=== PATIENT | male | born 1935 | race Caucasian/White ===

== ENCOUNTER 2019-11-28 12:41 | Outpatient (REF) | payer MEDICARE, SELFPAY ==
--- NOTE | 2019-11-28 13:06 | CT_ITS ---
EXAMINATION: CHEST CT WITHOUT CONTRAST CLINICAL INFORMATION: Abnormal weight loss COMPARISON: Previous chest x-ray and chest CT June 2019 TECHNIQUE: Axial images through the chest without contrast. Sagittal and coronal reconstructions on the technologist workstation were performed. Patient dose 1 7 mg/cm. FINDINGS: The heart is enlarged. There is severe coronary artery calcification. There is no pericardial effusion. There are small mediastinal lymph nodes. No enlarged lymph nodes are seen. The visualized thyroid gland is unremarkable. The esophagus is unremarkable. The previously identified diffuse interstitial prominence and groundglass opacities seen on June 2019 exam have almost completely resolved. There are minimal residual peripheral increased interstitial markings seen in the dependent right lower lobe. The lungs are otherwise clear. No evidence of emphysema or bronchiectasis is seen. No endobronchial or endotracheal lesion is seen. There is no pleural effusion or pleural thickening. The previously identified moderate bilateral pleural effusions on June 2019 exam resolved. No chest wall mass or enlarged axillary lymph nodes are seen. There is evidence of atherosclerotic disease and calcification at the origins of the celiac axis and SMA. Images through the upper abdomen are otherwise unremarkable. There are degenerative changes of the spine. IMPRESSION: Enlarged heart and severe coronary artery calcification. Improved chest CT findings from June 2019. Mild residual increased interstitial markings seen in the peripheral right lower lobe. Resolved bilateral pleural effusions.
== END 2019-11-28 12:42 | disposition home or self-care (01) ==
LOC: HO.CT 12:41
PROVIDERS: PCP Family Medicine; Visit Provider Family Medicine
DX: R93.89 Abnormal findings on diagnostic imaging of other specified body structures (principal); R63.4 Abnormal weight loss
CPT/HCPCS: 71250

== ENCOUNTER → 2019-12-04 10:17 | Outpatient (BNVA) | payer MEDICARE, SELFPAY | PROVIDERS: Visit Provider Physician Assistant | DX: D64.9 Anemia, unspecified (principal); R10.13 Epigastric pain; R63.4 Abnormal weight loss | CPT/HCPCS: 99214 ==

== ENCOUNTER 2020-01-19 11:49 | Emergency (ER) | payer MEDICARE, SELFPAY ==
[2020-01-19] VITALS (7 sets, daily range): BP systolic 170–216; BP diastolic 62–84; PULSE 42–65; RESP 10–18; TEMP 36.6; O2SAT 95–97; BMI 31.4
--- NOTE | 2020-01-19 | ECG_ITS ---
Test Reason : ABDPAIN Blood Pressure : / mmHG Vent. Rate : 044 BPM Atrial Rate : 375 BPM P-R Int : 000 ms QRS Dur : 102 ms QT Int : 460 ms P-R-T Axes : 000 -52 -34 degrees QTc Int : 393 ms Atrial fibrillation with slow ventricular response Left anterior fascicular block Inferior infarct , age undetermined Nonspecific T wave abnormality Inferior leads Abnormal ECG When compared with ECG of [id number] Heart rate has decreased T wave inversion no longer evident in Lateral leads Referred By: Generic ED Physician Electronically Signed By:KENROY DURÁN MD
--- NOTE | 2020-01-19 12:01 | PC.NURSE ---
Son Antolin phone number [phone], first contact Anthony Begum phone number [phone], second contact
--- NOTE | 2020-01-19 12:20 | XR_ITS ---
EXAMINATION: XR CHEST CLINICAL INFORMATION: Epigastric pain. Weight loss. COMPARISON: Previous chest x-ray most recent June [address] most recent November 2019 TECHNIQUE: 2 views of the chest were obtained. FINDINGS: The cardiac silhouette is enlarged but stable. Hilar and mediastinal contours are unremarkable. The lungs are clear. There is no pleural effusion or pneumothorax. There are degenerative changes of the spine. XR/XR chest 2V IMPRESSION: Stable enlargement of the cardiac silhouette. No evidence for acute disease in the chest.
--- NOTE | 2020-01-19 12:26 | PC.NURSE ---
pt triaged c/o mid abdominal pain, described as burning sensation, worsened when reclined. pt toya on monitor in low 40s, afib, pulses strong and regular. skin colour pwd, resp even nonlaboured. pa to bedside. arrived with 18G in bilat ac's. labs drawn. Elyssa daughter [phone]
--- NOTE | 2020-01-19 12:35 | ED.ABDPAIN ---
HPI - Abdominal Pain General Chief Complaint: Abdominal Pain Stated Complaint: EPIGASTRIC PAIN Time Seen by Provider: 01/19/20 12:08 Source: patient Mode of arrival: ambulatory Limitations: language barrier ([place]ander-speaking) History of Present Illness HPI narrative: 84yoM c PMHx of NSTEMI had an ECHO on June/2019 with an EF 35-40% with RWMA in the LAD territory with trivial loculated pericardial effusions over the RV and RA, cardiac catheterization at [facility] on June/2019 multi-vessel disease of the LAD, LCx and PDA and CABG recommended although pt refused , Atrial fibrillation on Blood thinners, DM, CKD baseline Cr 1.5-1.7, Renal artery stenosis, HTN, HLD, Tubular adenoma, Anemia, Restrictive lung disease, Esophageal dysmotility, BPH and MELQUIADES presenting to the ED c c/o epigastric abd pain since june 35lb weight loss. Denies N/V/D, dizziness, Chest pain, SOB, back pain, melena or bloody stools, dysuria, hematuria or any other symptoms complaints or concerns at this time. Related Data Home Medications Medication Instructions Recorded Confirmed albuterol sulfate 90 mcg/actuation 0 mcg INHALATION 12/04/19 12/04/19 aerosol inhaler alcohol swabs 0 pad TOPICAL 12/04/19 12/04/19 amlodipine 10 mg tablet 10 mg PO DAILY 12/04/19 12/04/19 apixaban 2.5 mg tablet 2.5 mg PO BID 12/04/19 12/04/19 aspirin 81 mg tablet,delayed 81 mg PO DAILY 12/04/19 12/04/19 release atorvastatin 40 mg tablet mg PO 12/04/19 12/04/19 atorvastatin 80 mg tablet 80 mg PO DAILY 12/04/19 12/04/19 blood sugar diagnostic #10 ea 12/04/19 12/04/19 cholecalciferol (vitamin D3) 50 50 mcg PO DAILY 12/04/19 12/04/19 mcg (2,000 unit) capsule clopidogrel 75 mg tablet 75 mg PO DAILY 12/04/19 12/04/19 dextrose 40 % oral gel g PO 12/04/19 12/04/19 fluticasone 250 mcg-salmeterol 50 1 ea PO Q12H 12/04/19 12/04/19 mcg/dose blistr powdr for inhalation glucose 4 gram chewable tablet 800f16 g PO 12/04/19 12/04/19 hydrochlorothiazide 12.5 mg tablet 12.5 mg PO DAILY 12/04/19 12/04/19 insulin aspart U-100 100 unit/mL unit SUBCUT 12/04/19 12/04/19 (3 mL) subcutaneous pen insulin glargine 100 unit/mL (3 50 unit SUBCUT BEDTIME 12/04/19 12/04/19 mL) subcutaneous pen isosorbide mononitrate 120 mg 120 mg PO DAILY 12/04/19 12/04/19 tablet,extended release 24 hr isosorbide mononitrate 30 mg 30 mg PO QAM 12/04/19 12/04/19 tablet,extended release 24 hr lancets 33 gauge #100 ea 12/04/19 12/04/19 lisinopril 10 mg tablet 10 mg PO DAILY 12/04/19 12/04/19 lisinopril 40 mg tablet 40 mg PO DAILY 12/04/19 12/04/19 nifedipine 30 mg tablet,extended 30 mg PO DAILY 12/04/19 12/04/19 release 24 hr omeprazole 20 mg capsule,delayed 0 mg PO 12/04/19 12/04/19 release pen needle, diabetic 32 gauge x #50 ea 12/04/19 12/04/1932 umeclidinium 62.5 mcg/actuation 1 inh INHALATION DAILY 12/04/19 12/04/19 blister powder for inhalation Previous Rx's Medication Instructions Recorded carvedilol 3.125 mg tablet 3.125 mg PO BID 90 Days #180 tab 01/09/20 torsemide 20 mg tablet 40 mg PO DAILY 90 Days #180 tab 01/09/20 levofloxacin 750 mg PO DAILY 7 Days #7 tab 01/19/20 metronidazole [Flagyl] 500 mg PO BID 7 Days #14 tab 01/19/20 Allergies Allergy/AdvReac Type Severity Reaction Status Date / Time No Known Allergies Allergy Verified 01/19/20 12:14 Review of Systems Review of Systems Constitutional : + 35lbs Weight loss, No Fever, No Chills, No Night Sweats, No Fatigue, NoMalaise ENT/Mouth: No ear pain, No sore throat, No Difficulty swallowing Cardiovascular : No Chest Pain, No SOB, No Dyspnea on Exertion, No Orthopnea, NoEdema, No Palpitations Respiratory : No Cough, No Sputum, No Wheezing, No Dyspnea Gastrointestinal : No Nausea, No Vomiting, No Diarrhea, + abdominal Pain, No Hematochezia, No Melena Genitourinary : No irregular bleeding, No Dysuria, No Urinary Frequency, No Hematuria,No Urinary Incontinence, No Urgency, No Flank Pain Musculoskeletal : No joint pain, No Myalgias, No Joint Swelling Skin : No Skin Lesions, No rash Neuro : No Weakness, No Numbness, No Paresthesias, No Loss of Consciousness, NoDizziness, No Headache Psych : No Social Issues, Heme/Lymph: No Bruising, No Bleeding,No Lymphadenopathy Endocrine : No Polyuria, No Polydipsia, No Temperature Intolerance Yes all other systems are reviewed and are negative Physical Exam Vital Signs: Vital Signs: Last Vital Signs Temp 97.9 F 01/19/20 11:58 Pulse 50 01/19/20 16:19 Resp 14 01/19/20 16:19 BP 204/84 H 01/19/20 16:19 Pulse Ox 97 01/19/20 16:19 Body Mass Index 31.4 vital signs have been reviewed as normal and appeared to be correct. Blood pressure High. Heart rate low. Respiration rate normal. Temperature normal. Oxygen saturation normal. Appearance: Alert. Oriented X3. No acute distress. Head: Normal external exam. Normocephalic. Eyes: PERRLA. EOMI. Conjunctiva and sclera normal. Eyelids normal. ENT: Pharynx normal. Uvula midline. Moist mucous membranes. Neck: Normal inspection. Neck supple. FROM. No adenopathy. No meningeal signs. CVS: Normal heart rate and rhythm. Heart sound normal. No murmurs noted. Pulses normal throughout. Respiratory: No respiratory distress. Painless inspiration. Breath sounds normal. No wheezes/rales/rhonchi noted. Chest nontender. No accessory muscle usage noted or decreased air movement noted. Abdomen: Soft and mild TTP of upper abd. Bowel sounds normal in all 4 quadrants. No distention noted. No organomegaly noted. No visible injury noted. Back: No CVA tenderness. Full range of motion noted. Skin: Skin warm and dry. Normal skin color. Normal skin turgor. No rashes/lesions/lacerations noted. Extremities: +2 pitting lower extremity edema from bwloe knees to b/l feet. Extremities exhibit normal range of motion. Extremities nontender. Neuro: Oriented X 3. No motor deficit. No sensory deficit. Reflexes normal. Course Course Course Narrative: 12:30PM - 84yoM c PMHx of NSTEMI had an ECHO on June/2019 with an EF 35-40% with RWMA in the LAD territory with trivial loculated pericardial effusions over the RV and RA, cardiac catheterization at [facility] on June/2019 multi-vessel disease of the LAD, LCx and PDA and CABG recommended although pt refused , Atrial fibrillation on Blood thinners, DM, CKD baseline Cr 1.5-1.7, Renal artery stenosis, HTN, HLD, Tubular adenoma, Anemia, Restrictive lung disease, Esophageal dysmotility, BPH and MELQUIADES presenting to the ED c c/o epigastric abd pain since june c 35lb weight loss. - Patient's pulse noted to be in the 40s and his EKG is atrial fibrillation with ventricular rate of 44 no acute ischemic changes noted. Patient denies any active CP, SOB or dizziness other than his abd pain epigastric area x months. - Concern for cholelithiasis vs GERD vs mass - Plan: Labs, CXR, EKG, CT scan of abd/pelvis c IV contrast then re-evaluate. Reevaluation(s) Reevaluation #1: - Trop elevated at 40.4, BNP at 739. - From [facility]'s Record's on July 26, 2019 Trop was elevated at .92 and BNP at 8694. - CT scan of abd/pelvis revealed acute colitis/enteritis which could be infectious, inflammatory or ischemic. Patient does not have an elevated white blood cell count, Denies N/V/D. Therefore will obtain a lactic acid to evaluate for possible ischemic colitis and repeat troponin then re-evaluate. Time: 15:31 Reevaluation #2: - patient's blood pressure has been elevated therefore given 20 mg of lisinopril then the blood pressure went up into the 200s again therefore was given hydralazine now blood pressure is going up again therefore will give another 10 mg of lisinopril. Patient is on multiple blood pressure medication reports he took his blood pressure medication this morning but is due for his nighttime meds he will take them when he goes home. - Repeat troponin at 32.6 therefore negative delta. Lactic acid 0.[address] scan most likely inflammatory versus infectious not ischemic. Will DC home with antibiotics for colitis with Levaquin and Flagyl and instructions to follow-up with systems software engineer. Patient understands and agrees with this plan. Time: 18:06 MDM - Abdominal Pain Medical Records Attestation: I reviewed the patient's medical records. Lab Data Attestation: I reviewed the patient's lab results. Result diagrams: 01/19/20 12:29 01/19/20 12:30 Labs: Lab Results 01/19/20 01/19/20 01/19/20 Range/Units 12:29 12:29 12:29 WBC 9.1 (4.8-10.8) X10*3/uL RBC 3.95 L (4.60-5.80) X10*6/uL Hgb 13.1 L (14.0-18.0) g/dl Hct 36.9 L (42-52) % MCV 93.4 (80-98) fL MCH 33.2 H (27.0-33.0) pg MCHC 35.5 (31.0-36.0) g/dl RDW 12.4 (11.0-16.0) % Plt Count 439 H (160-400) X10*3/uL MPV 10.8 (9.4-12.4) fL Immature Gran % (Auto) 0.1 (0.0-0.4) % Neut % (Auto) 74.0 H (45-73) % Lymph % (Auto) 14.3 L (20-40) % [place] % (Auto) 8.0 (2-11) % Eos % (Auto) 3.3 (0-4) % Baso % (Auto) 0.3 (0-2) % Lymph # (Auto) 1.3 (1.2-4.9) X10*3/uL [place] # (Auto) 0.7 (0.1-1.2) X10*3/uL Eos # (Auto) 0.3 (0.0-0.4) X10*3/uL Baso # (Auto) 0.0 (0.0-0.2) X10*3/uL Abs Immat Gran (auto) 0.01 (0.00-0.03) X10*3/uL Absolute Neuts (auto) 6.8 (2.0-8.3) X10*3/uL Absolute Nucleated RBC 0.000 (0.0-0.012) X10*3/uL Nucleated RBC % (auto) 0.0 (0.0-0.2) /100WBC Hold Purple Top SEE NOTE PT 16.2 H (10.8-13.0) SEC INR 1.4 H (0.9-1.1) Sodium (135-145) mmol/L Potassium (3.3-5.1) mmol/l Chloride (96-108) mmol/L Carbon Dioxide (22-29) mmol/L Anion Gap (12-20) BUN (9-16) mg/dL Creatinine (0.5-1.4) mg/dL Estim Creat Clear Calc Estimated GFR Random Glucose (60-115) mg/dL Lactic Acid (0.5-2.0) mmol/L Calcium (8.4-10.2) mg/dL Magnesium (1.6-2.6) mg/dL Total Bilirubin (0.0-1.0) mg/dL Direct Bilirubin (0.0-0.5) mg/dL AST (5-37) U/L ALT (0-40) U/L Alkaline Phosphatase (39-117) U/L Troponin I High Sens (<3.5-35.0) ng/L B-Natriuretic Peptide (<100) pg/mL Total Protein (6.5-8.0) g/dL Albumin (3.5-5.0) g/dL Lipase (8-78) U/L Urine Color Urine Appearance Urine pH (5.0-8.0) Ur Specific Ewing (1.005-1.025) Urine Protein (NEG-TRACE) MG/DL Urine Glucose (UA) (NEG) MG/DL Urine Ketones (NEG) MG/DL Urine Blood (NEG) Urine Nitrite (NEG) Ur Leukocyte Esterase (NEG) 01/19/20 01/19/20 01/19/20 Range/Units 12:29 12:30 15:29 WBC (4.8-10.8) X10*3/uL RBC (4.60-5.80) X10*6/uL Hgb (14.0-18.0) g/dl Hct (42-52) % MCV (80-98) fL MCH (27.0-33.0) pg MCHC (31.0-36.0) g/dl RDW (11.0-16.0) % Plt Count (160-400) X10*3/uL MPV (9.4-12.4) fL Immature Gran % (Auto) (0.0-0.4) % Neut % (Auto) (45-73) % Lymph % (Auto) (20-40) % [place] % (Auto) (2-11) % Eos % (Auto) (0-4) % Baso % (Auto) (0-2) % Lymph # (Auto) (1.2-4.9) X10*3/uL [place] # (Auto) (0.1-1.2) X10*3/uL Eos # (Auto) (0.0-0.4) X10*3/uL Baso # (Auto) (0.0-0.2) X10*3/uL Abs Immat Gran (auto) (0.00-0.03) X10*3/uL Absolute Neuts (auto) (2.0-8.3) X10*3/uL Absolute Nucleated RBC (0.0-0.012) X10*3/uL Nucleated RBC % (auto) (0.0-0.2) /100WBC Hold Purple Top PT (10.8-13.0) SEC INR (0.9-1.1) Sodium 138 (135-145) mmol/L Potassium 4.1 (3.3-5.1) mmol/l Chloride 104 (96-108) mmol/L Carbon Dioxide 25 (22-29) mmol/L Anion Gap 13 (12-20) BUN 23 H (9-16) mg/dL Creatinine 1.67 H (0.5-1.4) mg/dL Estim Creat Clear Calc 36.6 Estimated GFR 40 Random Glucose 146 H (60-115) mg/dL Lactic Acid (0.5-2.0) mmol/L Calcium 8.2 L (8.4-10.2) mg/dL Magnesium 1.9 (1.6-2.6) mg/dL Total Bilirubin 0.5 (0.0-1.0) mg/dL Direct Bilirubin 0.2 (0.0-0.5) mg/dL AST 29 (5-37) U/L ALT 16 (0-40) U/L Alkaline Phosphatase 124 H (39-117) U/L Troponin I High Sens 40.4 H 32.6 (<3.5-35.0) ng/L B-Natriuretic Peptide 739 H (<100) pg/mL Total Protein 5.5 L (6.5-8.0) g/dL Albumin 3.0 L (3.5-5.0) g/dL Lipase (8-78) U/L Urine Color Urine Appearance Urine pH (5.0-8.0) Ur Specific Ewing (1.005-1.025) Urine Protein (NEG-TRACE) MG/DL Urine Glucose (UA) (NEG) MG/DL Urine Ketones (NEG) MG/DL Urine Blood (NEG) Urine Nitrite (NEG) Ur Leukocyte Esterase (NEG) 01/19/20 01/19/20 01/19/20 Range/Units 15:29 16:06 17:08 WBC (4.8-10.8) X10*3/uL RBC (4.60-5.80) X10*6/uL Hgb (14.0-18.0) g/dl Hct (42-52) % MCV (80-98) fL MCH (27.0-33.0) pg MCHC (31.0-36.0) g/dl RDW (11.0-16.0) % Plt Count (160-400) X10*3/uL MPV (9.4-12.4) fL Immature Gran % (Auto) (0.0-0.4) % Neut % (Auto) (45-73) % Lymph % (Auto) (20-40) % [place] % (Auto) (2-11) % Eos % (Auto) (0-4) % Baso % (Auto) (0-2) % Lymph # (Auto) (1.2-4.9) X10*3/uL [place] # (Auto) (0.1-1.2) X10*3/uL Eos # (Auto) (0.0-0.4) X10*3/uL Baso # (Auto) (0.0-0.2) X10*3/uL Abs Immat Gran (auto) (0.00-0.03) X10*3/uL Absolute Neuts (auto) (2.0-8.3) X10*3/uL Absolute Nucleated RBC (0.0-0.012) X10*3/uL Nucleated RBC % (auto) (0.0-0.2) /100WBC Hold Purple Top PT (10.8-13.0) SEC INR (0.9-1.1) Sodium (135-145) mmol/L Potassium (3.3-5.1) mmol/l Chloride (96-108) mmol/L Carbon Dioxide (22-29) mmol/L Anion Gap (12-20) BUN (9-16) mg/dL Creatinine (0.5-1.4) mg/dL Estim Creat Clear Calc Estimated GFR Random Glucose (60-115) mg/dL Lactic Acid 0.7 (0.5-2.0) mmol/L Calcium (8.4-10.2) mg/dL Magnesium (1.6-2.6) mg/dL Total Bilirubin (0.0-1.0) mg/dL Direct Bilirubin (0.0-0.5) mg/dL AST (5-37) U/L ALT (0-40) U/L Alkaline Phosphatase (39-117) U/L Troponin I High Sens (<3.5-35.0) ng/L B-Natriuretic Peptide (<100) pg/mL Total Protein (6.5-8.0) g/dL Albumin (3.5-5.0) g/dL Lipase 12 (8-78) U/L Urine Color YELLOW Urine Appearance CLEAR Urine pH 6.0 (5.0-8.0) Ur Specific Ewing 1.020 (1.005-1.025) Urine Protein 3+ H (NEG-TRACE) MG/DL Urine Glucose (UA) 100 H (NEG) MG/DL Urine Ketones NEG (NEG) MG/DL Urine Blood 1+ H (NEG) Urine Nitrite NEG (NEG) Ur Leukocyte Esterase NEG (NEG) Imaging Data CT scan - abdomen: Attestation: I personally reviewed and interpreted this imaging study as follows: Radiologist's impression: IMPRESSION: 1. Circumferential wall thickening with prominent adjacent fat stranding at the cecum and terminal ileum, new when compared to the prior examination and consistent with acute colitis/enteritis. Infectious, inflammatory, and ischemic etiologies could be considered. No evidence of perforation or abscess formation. 2. Sigmoid diverticulosis without evidence of acute diverticulitis. No small- or large-bowel obstruction. 3. Trace perihepatic and pelvic ascites, new when compared to the prior examination. 4. Small bilateral pleural effusions with bibasilar atelectasis, slightly decreased in prominence when compared to the prior examination. 5. Cardiomegaly and small pericardial effusion, new/increased when compared to the prior examination. Chest x-ray: Attestation: I personally reviewed and interpreted this imaging study as follows: Radiologist's impression: IMPRESSION: Stable enlargement of the cardiac silhouette. No evidence for acute disease in the chest. ECG Data Attestation: I personally reviewed and interpreted this ECG as follows: ECG interpretation date: 01/19/20 ECG interpretation time: 12:08 Interpretation: Atrial fibrillation with slow ventricular response with a ventricular rate of 44 with a left axis deviation normal QRS duration. anteriorlateral T wave inversions. No acute ischemic changes noted. Similar when compared to prior EKG on 07/22/2019. Discharge Plan Discharge Clinical Impression: Colitis Patient Disposition: Home, Self-Care Instructions: Colitis (ED) Prescriptions: New levofloxacin 750 mg tablet 750 mg PO DAILY 7 Days Qty: 7 RF: 0 metronidazole [Flagyl] 500 mg tablet 500 mg PO BID 7 Days Qty: 14 RF: 0 No Action carvedilol 3.125 mg tablet 3.125 mg PO BID 90 Days Qty: 180 RF: 1 torsemide 20 mg tablet 40 mg PO DAILY 90 Days Qty: 180 RF: 1 omeprazole 20 mg capsule,delayed release(DR/EC) 0 mg PO RF: 0 isosorbide mononitrate 120 mg tablet extended release 24 hr 120 mg PO DAILY RF: 0 atorvastatin 80 mg tablet 80 mg PO DAILY RF: 0 nifedipine 30 mg tablet extended release 24hr 30 mg PO DAILY RF: 0 clopidogrel 75 mg tablet 75 mg PO DAILY RF: 0 lisinopril 10 mg tablet 10 mg PO DAILY RF: 0 glucose 4 gram tablet,chewable 800f16 g PO RF: 0 (DME) FreeStyle Lite Strips Strip See Rx Instructions ea Not Applicable .MEDSUPPLY Qty: 10 RF: 0 cholecalciferol (vitamin D3) 50 mcg (2,000 unit) capsule 50 mcg PO DAILY RF: 0 Incruse Ellipta 62.5 mcg/actuation blister with device 1 inh inhalation DAILY RF: 0 fluticasone propion-salmeterol 250-50 mcg/dose blister with device 1 ea PO Q12H RF: 0 Eliquis 2.5 mg tablet 2.5 mg PO BID RF: 0 (DME) pen needle, diabetic 32 gauge x 5/32 needle See Rx Instructions ea subcut QID Qty: 50 RF: 0 alcohol swabs Pads, Medicated 0 pad topical RF: 0 insulin aspart U-100 100 unit/mL (3 mL) insulin pen subcut RF: 0 Lantus Solostar U-100 Insulin 100 unit/mL (3 mL) insulin pen 50 unit subcut BEDTIME RF: 0 hydrochlorothiazide 12.5 mg tablet 12.5 mg PO DAILY RF: 0 dextrose 40 % gel PO RF: 0 albuterol sulfate 90 mcg/actuation HFA aerosol inhaler 0 mcg inhalation RF: 0 (DME) lancets 33 gauge misc See Rx Instructions ea .ROUTE .MEDSUPPLY Qty: 100 RF: 0 atorvastatin 40 mg tablet PO RF: 0 lisinopril 40 mg tablet 40 mg PO DAILY RF: 0 isosorbide mononitrate 30 mg tablet extended release 24 hr 30 mg PO QAM RF: 0 aspirin 81 mg tablet,delayed release (DR/EC) 81 mg PO DAILY RF: 0 amlodipine 10 mg tablet 10 mg PO DAILY RF: 0 Referrals: Karel Jennings [Physician] - 2 days (Or your GI doctor within 7-14 days please) Print Language: [place] [facility] Past Medical History Attestation statement: The following information was validated with the patient. Medical History Anemia Chronic GERD Myocardial infarction Tubular adenoma Surgical History Hx of colonoscopy Family History Family History Father No problems noted. Mother No problems noted. Social History Social History Alcohol intake: former Smoking Status: Never smoker Use of substances other than those prescribed or required for medical reasons: No Advance Directives: No Advance Directives Information Provided: Yes
[2020-01-19 12:36] LABS: Basophils Percent Auto 0.3 % (0-2); Eosinophils Absolute Auto 0.3 X10*3/uL (0.0-0.4); Eosinophils Percent Auto 3.3 % (0-4); Hematocrit 36.9 % (42-52); Hemoglobin 13.1 g/dl (14.0-18.0); Imm Gran Abs Auto 0.01 X10*3/uL (0.00-0.03); Imm Gran Pct Auto 0.1 % (0.0-0.4); Lymphocytes Absolute Auto 1.3 X10*3/uL (1.2-4.9); Lymphocytes Percent Auto 14.3 % (20-40); MANUAL DIFF FLAG NO; Mean Corpuscular HGB Conc 35.5 g/dl (31.0-36.0); Mean Corpuscular Hemoglobin 33.2 pg (27.0-33.0); Mean Corpuscular Volume 93.4 fL (80-98); Mean Platelet Volume 10.8 fL (9.4-12.4); Monocytes Absolute Auto 0.7 X10*3/uL (0.1-1.2); Neutrophils Absolute Auto 6.8 X10*3/uL (2.0-8.3); Platelet Count 439 X10*3/uL (160-400); Red Blood Count 3.95 X10*6/uL (4.60-5.80); Red Cell Distribution Width 12.4 % (11.0-16.0); White Blood Count 9.1 X10*3/uL (4.8-10.8)
[2020-01-19 12:46] LABS: INTERNATIONAL NORM RATIO 1.4 (0.9-1.1); Prothrombin Time 16.2 SEC (10.8-13.0)
--- NOTE | 2020-01-19 12:48 | PC.NURSE ---
PT TO CT SCAN
[2020-01-19 13:04] LABS: Alanine Aminotransferase 16 U/L (0-40); Alkaline Phosphatase 124 U/L (39-117); Anion Gap 13 (12-20); Aspartate Amino Transferase 29 U/L (5-37); Bilirubin Direct 0.2 mg/dL (0.0-0.5); Bilirubin Total 0.5 mg/dL (0.0-1.0); Blood Urea Nitrogen 23 mg/dL (9-16); Calcium 8.2 mg/dL (8.4-10.2); Carbon Dioxide 25 mmol/L (22-29); Chloride 104 mmol/L (96-108); Creatinine Clr Calc Pharmacy 36.6; Estimated Glomerular Filt Rate 40; Glucose Random 146 mg/dL (60-115); Magnesium 1.9 mg/dL (1.6-2.6); Potassium 4.1 mmol/l (3.3-5.1); Sodium 138 mmol/L (135-145); Total Protein 5.5 g/dL (6.5-8.0)
[2020-01-19 13:34] LABS: B Type Natriuretic Peptide 739 pg/mL (<100); Troponin-I High Sensitivity 40.4 ng/L (<3.5-35.0)
[2020-01-19] MEDS: lisinopriL 20 MG TABLET PO (14:14)
--- NOTE | 2020-01-19 14:24 | CT_ITS ---
EXAMINATION: CT ABDOMEN AND PELVIS WITHOUT CONTRAST CLINICAL INFORMATION: Epigastric abdominal pain. COMPARISON: Most recent CT chest/abdomen/pelvis dated 07/21/2019. TECHNIQUE: Multidetector volumetric imaging was performed from the superior aspect of the liver through the pubic symphysis. Sagittal and coronal reformatted images were obtained on the technologist's workstation. This CT examination was performed using dose optimization techniques as appropriate, variously including the following: *Automated exposure control *Adjustment of mA and/or kV according to patient size (this includes techniques or standardized protocols for targeted exams where dose is matched to indication/reason for exam; i.e. extremities or head) *Use of iterative reconstruction technique DLP: 712 mGy-cm FINDINGS: LUNG BASES: Small bilateral pleural effusions with bibasilar atelectasis, slightly decreased when compared to the prior examination. Mild cardiomegaly and small pericardial effusion, new/increased when compared to the prior examination. LIVER, GALLBLADDER, AND BILIARY TREE: The liver is normal in size, shape, and attenuation. No focal hepatic lesion or biliary ductal dilatation is present. The gallbladder is unremarkable with no evidence of radiopaque gallstones, gallbladder wall thickening, or obvious pericholecystic inflammatory changes. PANCREAS: Unremarkable. SPLEEN: Unremarkable. ADRENAL GLANDS: Unremarkable. KIDNEYS AND URETERS: The kidneys are normal in size, shape, and attenuation. No hydronephrosis, hydroureter, or calculi seen. Unchanged right midpole renal cyst. Nonspecific bilateral perinephric stranding, unchanged. BLADDER: Nondistended and unremarkable. GASTROINTESTINAL TRACT: Sigmoid diverticulosis without evidence of acute diverticulitis. Circumferential wall thickening with adjacent fat stranding at the cecum as well as at the terminal ileum, new when compared to the prior examination and consistent with acute enteritis/colitis. No evidence of perforation or abscess formation. PERITONEAL CAVITY: Trace pelvic and perihepatic free fluid. No intra-abdominal free air. No intra-abdominal mass or organized fluid collection/abscess. ABDOMINAL WALL: No significant hernia is appreciated. LYMPH NODES: No significant lymphadenopathy. VASCULAR: No abdominal aortic dilatation. Atherosclerotic calcifications throughout the abdominal aorta and its branch vessels. PELVIC VISCERA: Unremarkable. OSSEOUS STRUCTURES: No new lytic or blastic osseous lesion. CT/CT abdomen pelvis wo con IMPRESSION: 1. Circumferential wall thickening with prominent adjacent fat stranding at the cecum and terminal ileum, new when compared to the prior examination and consistent with acute colitis/enteritis. Infectious, inflammatory, and ischemic etiologies could be considered. No evidence of perforation or abscess formation. 2. Sigmoid diverticulosis without evidence of acute diverticulitis. No small- or large-bowel obstruction. 3. Trace perihepatic and pelvic ascites, new when compared to the prior examination. 4. Small bilateral pleural effusions with bibasilar atelectasis, slightly decreased in prominence when compared to the prior examination. 5. Cardiomegaly and small pericardial effusion, new/increased when compared to the prior examination.
--- NOTE | 2020-01-19 14:45 | PC.NURSE ---
PT TO CT SCAN
[2020-01-19] MEDS: hydrALAZINE HCl 20 MG/ML VIAL 10 MG IVPUSH (16:15)
--- NOTE | 2020-01-19 16:17 | PC.NURSE ---
PT RESTING COMFORTABLY. SBPS IN 200S, ASYMPTOMATIC. PA MADE AWARE. UPDATED DAUGHTER. MEDICATED FOR BP. WAITING ON LACTIC ACID AND REPEAT TROP. PT AWARE OF PLAN FOR CARE.
[2020-01-19 16:26] LABS: Lipase 12 U/L (8-78)
[2020-01-19 16:28] LABS: Troponin-I High Sensitivity 32.6 ng/L (<3.5-35.0)
[2020-01-19 16:46] LABS: Lactic Acid 0.7 mmol/L (0.5-2.0)
[2020-01-19 17:14] LABS: Glucose Urine UA 100 MG/DL (NEG); Leukocyte Esterase Urine NEG (NEG); Nitrite Urine NEG (NEG); Urine Blood 1+ (NEG); Urine Ketones NEG (NEG); Urine Protein 3+ MG/DL (NEG-TRACE)
[2020-01-19 17:29] LABS: Appearance Urine CLEAR; Color Urine YELLOW
[2020-01-19 18:18] LABS: Squamous Epithelial Cell Urine 1+ /LPF; WBC Urine 0 /HPF (0-4)
[2020-01-19] MEDS: lisinopriL 10 MG TABLET PO (19:04)
[2020-01-19] MEDS: levoFLOXacin 750 MG TABLET PO (19:04)
[2020-01-19] MEDS: metroNIDAZOLE 500 MG TABLET PO (19:05)
== END 2020-01-19 19:29 | disposition home or self-care (01) ==
PROVIDERS: Physician Assistant Medical; Emergency Provider Emergency Medicine
DX: K52.9 Noninfective gastroenteritis and colitis, unspecified (principal); R10.13 Epigastric pain; Z79.899 Other long term (current) drug therapy; Z87.891 Personal history of nicotine dependence
CPT/HCPCS: 36415; 71046; 74176; 80048; 80076; 81001; 83605; 83690; 83735; 83880; 84484; 85025; 85610; 93005; 96361; 96374; 99284

== ENCOUNTER 2020-01-30 08:00 | Outpatient (REF) | payer MEDICARE, SELFPAY ==
[2020-01-30 15:45] LABS: MANUAL DIFF FLAG NO
[2020-01-30 16:00] LABS: Basophils Percent Auto 0.4 % (0-2); Eosinophils Absolute Auto 0.3 X10*3/uL (0.0-0.4); Eosinophils Percent Auto 3.7 % (0-4); Hematocrit 40.1 % (42-52); Hemoglobin 13.7 g/dl (14.0-18.0); Imm Gran Abs Auto 0.02 X10*3/uL (0.00-0.03); Imm Gran Pct Auto 0.3 % (0.0-0.4); Lymphocytes Absolute Auto 1.3 X10*3/uL (1.2-4.9); Lymphocytes Percent Auto 16.4 % (20-40); Mean Corpuscular HGB Conc 34.2 g/dl (31.0-36.0); Mean Corpuscular Hemoglobin 32.8 pg (27.0-33.0); Mean Corpuscular Volume 95.9 fL (80-98); Mean Platelet Volume 10.9 fL (9.4-12.4); Monocytes Absolute Auto 0.7 X10*3/uL (0.1-1.2); Monocytes Percent Auto 8.8 % (2-11); Neutrophils Absolute Auto 5.6 X10*3/uL (2.0-8.3); Neutrophils Percent Auto 70.4 % (45-73); Platelet Count 436 X10*3/uL (160-400); Red Blood Count 4.18 X10*6/uL (4.60-5.80); Red Cell Distribution Width 13.2 % (11.0-16.0); White Blood Count 7.9 X10*3/uL (4.8-10.8)
[2020-01-30 16:17] LABS: Alanine Aminotransferase 13 U/L (0-40); Albumin Level 3.1 g/dL (3.5-5.0); Alkaline Phosphatase 105 U/L (39-117); Anion Gap 11 (12-20); Aspartate Amino Transferase 24 U/L (5-37); Bilirubin Total 0.5 mg/dL (0.0-1.0); Blood Urea Nitrogen 30 mg/dL (9-16); Calcium 8.4 mg/dL (8.4-10.2); Carbon Dioxide 31 mmol/L (22-29); Chloride 106 mmol/L (96-108); Estimated Glomerular Filt Rate 27; Glucose Random 168 mg/dL (60-115); Potassium 4.3 mmol/l (3.3-5.1); Sodium 144 mmol/L (135-145); Total Protein 5.3 g/dL (6.5-8.0)
[2020-01-30 16:38] LABS: Ferritin 148 ng/mL (20-250)
== END 2020-01-30 08:01 | disposition home or self-care (01) ==
LOC: HO.LAB 08:00
PROVIDERS: Visit Provider Physician Assistant
DX: R10.11 Right upper quadrant pain (principal); D64.9 Anemia, unspecified; R10.9 Unspecified abdominal pain; K52.9 Noninfective gastroenteritis and colitis, unspecified
CPT/HCPCS: 36415; 80053; 82728; 85025

== ENCOUNTER → 2020-01-30 13:57 | Outpatient (BNVA) | payer MEDICARE, SELFPAY | PROVIDERS: Visit Provider Physician Assistant | DX: K52.9 Noninfective gastroenteritis and colitis, unspecified (principal) | CPT/HCPCS: 80053; 85025; Q3014 ==

== ENCOUNTER 2020-01-31 14:05 | Outpatient (REF) | payer MEDICARE, SELFPAY ==
[2020-01-31 18:48] LABS: Leukocytes Stool Qualitative NEGATIVE (NEGATIVE)
[2020-01-31 21:39] LABS: CDIFF Ag Negative (Negative); CDIFF Internal ctrl Dots and bkg OK (V); CDiff Toxin Negative (Negative)
[2020-02-07 20:08] LABS: Calprotectin, Fecal 88 mcg/g
== END 2020-01-31 14:06 | disposition home or self-care (01) ==
LOC: HO.LNP 14:05
PROVIDERS: Visit Provider Physician Assistant
DX: R19.7 Diarrhea, unspecified (principal); R10.9 Unspecified abdominal pain; I21.4 Non-ST elevation (NSTEMI) myocardial infarction
CPT/HCPCS: 83993; 87045; 87046; 87324; 87329; 87449; 89055

== ENCOUNTER 2020-02-17 09:19 | Outpatient (REF) | payer MEDICARE, SELFPAY ==
[2020-02-17 10:04] LABS: MANUAL DIFF FLAG NO
[2020-02-17 10:07] LABS: Basophils Percent Auto 0.2 % (0-2); Eosinophils Absolute Auto 0.3 X10*3/uL (0.0-0.4); Hemoglobin 12.6 g/dl (14.0-18.0); Imm Gran Abs Auto 0.02 X10*3/uL (0.00-0.03); Imm Gran Pct Auto 0.2 % (0.0-0.4); Lymphocytes Absolute Auto 1.2 X10*3/uL (1.2-4.9); Lymphocytes Percent Auto 14.8 % (20-40); Mean Corpuscular HGB Conc 34.1 g/dl (31.0-36.0); Mean Corpuscular Hemoglobin 32.6 pg (27.0-33.0); Mean Corpuscular Volume 95.6 fL (80-98); Mean Platelet Volume 10.9 fL (9.4-12.4); Monocytes Absolute Auto 0.7 X10*3/uL (0.1-1.2); Monocytes Percent Auto 8.6 % (2-11); Neutrophils Percent Auto 72.2 % (45-73); Platelet Count 410 X10*3/uL (160-400); Red Blood Count 3.87 X10*6/uL (4.60-5.80); Red Cell Distribution Width 12.7 % (11.0-16.0); White Blood Count 8.3 X10*3/uL (4.8-10.8)
[2020-02-17 10:23] LABS: Estimated Average Glucose 117 mg/dL; Hemoglobin A1c % 5.7 %
[2020-02-17 10:32] LABS: Alanine Aminotransferase 17 U/L (0-40); Albumin Level 3.1 g/dL (3.5-5.0); Alkaline Phosphatase 119 U/L (39-117); Anion Gap 12 (12-20); Aspartate Amino Transferase 22 U/L (5-37); Bilirubin Total 0.7 mg/dL (0.0-1.0); Blood Urea Nitrogen 29 mg/dL (9-16); Calcium 8.5 mg/dL (8.4-10.2); Carbon Dioxide 29 mmol/L (22-29); Chloride 104 mmol/L (96-108); Cholesterol 114 mg/dL; Estimated Glomerular Filt Rate 34; Glucose Fasting 137 mg/dL (60-99); HDL Cholesterol 31 mg/dL; LDL Cholesterol Calculated 60 mg/dl; Potassium 3.9 mmol/l (3.3-5.1); Sodium 141 mmol/L (135-145); Total Protein 5.4 g/dL (6.5-8.0); Triglycerides 116 mg/dL
[2020-02-17 10:57] LABS: Thyroid Stimulating Hormone 3.96 uIU/mL (0.32-4.0)
[2020-02-17 10:58] LABS: Creatinine Urine 109.51 mg/dL
== END 2020-02-17 09:20 | disposition home or self-care (01) ==
LOC: HO.LAB 09:19
PROVIDERS: Absent Provider Physician Assistant; PCP Internal Medicine; Visit Provider Internal Medicine
DX: Z00.00 Encounter for general adult medical examination without abnormal findings (principal); E11.9 Type 2 diabetes mellitus without complications; E03.9 Hypothyroidism, unspecified
CPT/HCPCS: 36415; 80053; 80061; 82043; 83036; 84443; 85025

== ENCOUNTER → 2020-03-10 09:12 | Outpatient (BNVA) | payer MEDICARE, SELFPAY | PROVIDERS: PCP Internal Medicine; Visit Provider Internal Medicine | DX: Z01.810 Encounter for preprocedural cardiovascular examination (principal); I25.10 Atherosclerotic heart disease of native coronary artery without angina pectoris; I48.19 Other persistent atrial fibrillation; E11.22 Type 2 diabetes mellitus with diabetic chronic kidney disease; I13.0 Hypertensive heart and chronic kidney disease with heart failure and stage 1 through stage 4 chronic kidney disease, or unspecified chronic kidney disease; N18.9 Chronic kidney disease, unspecified; I50.42 Chronic combined systolic (congestive) and diastolic (congestive) heart failure | CPT/HCPCS: 99212 ==

== ENCOUNTER → 2020-03-19 10:39 | Outpatient (BNVA) | payer MEDICARE, SELFPAY | PROVIDERS: PCP Internal Medicine; Visit Provider Internal Medicine Cardiovascular Disease | DX: I50.42 Chronic combined systolic (congestive) and diastolic (congestive) heart failure (principal); I11.0 Hypertensive heart disease with heart failure; I48.19 Other persistent atrial fibrillation; I25.10 Atherosclerotic heart disease of native coronary artery without angina pectoris | CPT/HCPCS: 99212 ==

== ENCOUNTER 2020-03-26 11:51 | Emergency (ER) | payer MEDICARE, SELFPAY ==
--- NOTE | 2020-03-26 | ECG_ITS ---
Test Reason : PAIN Blood Pressure : / mmHG Vent. Rate : 045 BPM Atrial Rate : 357 BPM P-R Int : 000 ms QRS Dur : 104 ms QT Int : 494 ms P-R-T Axes : 000 -54 -21 degrees QTc Int : 427 ms Atrial fibrillation Left axis deviation Inferior infarct (cited on or before 21-JUL-2019) Anteroseptal infarct (cited on or before 21-JUL-2019) Abnormal ECG When compared with ECG of 19-JAN-2020 12:08, No significant changes seen Referred By: Aaron Aguirre Electronically Signed By:Bryan Gill
[2020-03-26 11:53] VITALS: BP 219/97; PULSE 56; RESP 16; TEMP 36.6; O2SAT 99; BMI 29.1
--- NOTE | 2020-03-26 12:06 | ED.ABDPAIN ---
HPI - Abdominal Pain General Chief Complaint: Abdominal Pain Stated Complaint: ABD PAIN Time Seen by Provider: 03/26/20 12:05 History of Present Illness HPI narrative: This is a pleasant primarily Nepali-speaking 85-year-old male with history as noted below including history of chronic combined diastolic/systolic congestive heart failure, NSTEMI had an ECHO on June/2019 with an EF 35-40% cardiac catheterization June 2019 with a chronic atrial fibrillation anticoagulated, gastroesophageal reflux disease, colitis, diabetes, type 2 diabetes who presents with complaint of left-sided abdominal pain onset since yesterday states onset after drinking cranberry juice and improved overnight a little bit and this morning progressively worsening after eating breakfast. There is associated nausea but no vomiting or diarrhea. No recent travel or sick contacts. No recent antibiotics. He reports to me that he has had similar episodes in the past most recently in December when he was seen here. In review of the chart he was here January 18 with similar type presentation diagnosed colitis discharge home with antibiotics and apparently did well. MD elicited complaint: abdominal pain Pertinent past history: other (Colitis) Onset (ago): day(s) (1) Pain Consistency: constant Location: LLQ Severity: moderate Quality: aching Radiation: none Exacerbating factors: eating Relieving factors: nothing Associated symptoms: nausea Related Data Home Medications Medication Instructions Recorded Confirmed albuterol sulfate 90 mcg/actuation 0 mcg INHALATION 12/04/19 03/17/20 aerosol inhaler alcohol swabs 0 pad TOPICAL 12/04/19 03/17/20 apixaban 2.5 mg tablet 2.5 mg PO BID 12/04/19 03/17/20 blood sugar diagnostic #10 ea 12/04/19 03/17/20 cholecalciferol (vitamin D3) 50 50 mcg PO DAILY 12/04/19 03/17/20 mcg (2,000 unit) capsule clopidogrel 75 mg tablet 75 mg PO DAILY 12/04/19 03/17/20 dextrose 40 % oral gel g PO 12/04/19 03/17/20 fluticasone 250 mcg-salmeterol 50 1 ea PO Q12H 12/04/19 03/17/20 mcg/dose blistr powdr for inhalation glucose 4 gram chewable tablet 800f16 g PO 12/04/19 03/17/20 lancets 33 gauge #100 ea 12/04/19 03/17/20 pen needle, diabetic 32 gauge x #50 ea 12/04/19 03/17/20 umeclidinium 62.5 mcg/actuation 1 inh INHALATION DAILY 12/04/19 03/17/20 blister powder for inhalation insulin aspart U-100 100 unit/mL 8 unit SUBCUT BID ml 02/12/20 03/17/20 (3 mL) subcutaneous pen insulin glargine 100 unit/mL (3 20 unit SUBCUT BEDTIME ml 02/12/20 03/17/20 mL) subcutaneous pen famotidine 40 mg tablet 40 mg PO DAILY 03/10/20 03/17/20 Previous Rx's Medication Instructions Recorded carvedilol 3.125 mg tablet 3.125 mg PO BID 90 Days #180 tab 01/09/20 torsemide 20 mg tablet 40 mg PO DAILY 90 Days #180 tab 01/09/20 levofloxacin 750 mg PO DAILY 7 Days #7 tab 01/19/20 metronidazole [Flagyl] 500 mg PO BID 7 Days #14 tab 01/19/20 bisacodyl 5 mg tablet,delayed 10 mg PO ONCE 1 Days #2 tab 02/04/20 release polyethylene glycol 3350 17 238 g PO ONCE 1 Days #238 g 02/04/20 gram/dose oral powder lisinopril 10 mg tablet 10 mg PO DAILY #90 tab 02/11/20 isosorbide mononitrate 120 mg 120 mg PO DAILY 90 Days #90 tab 02/12/20 tablet,extended release 24 hr atorvastatin 80 mg tablet 80 mg PO DAILY #90 tab 02/16/20 nifedipine 60 mg tablet,extended 60 mg PO DAILY #60 tab 03/19/20 release levofloxacin 750 mg PO DAILY #7 tab 03/26/20 metronidazole [Flagyl] 500 mg PO BID 10 Days #20 tab 03/26/20 Allergies Allergy/AdvReac Type Severity Reaction Status Date / Time No Known Allergies Allergy Verified 03/17/20 11:07 Review of Systems Review of Systems Constitutional: No Weight loss, No Fever, No Chills, No Night Sweats, No Fatigue, No Malaise ENT/Mouth: No Hearing loss, No Ear Pain, No Nasal Congestion, No Sinus Pain, No Hoarseness, No sore throat, No Rhinorrhea, No Swallowing Difficulty Eyes: No Eye Pain, No Swelling, No Redness, No Foreign Body, No Discharge, No Vision Changes Cardiovascular: No Chest Pain, No SOB, No Dyspnea on Exertion, No Orthopnea, No Edema, No Palpitations Respiratory: No Cough, No Sputum, No Wheezing, No Smoke Exposure, No Dyspnea Gastrointestinal: As noted in HPI, No Hematochezia, No Melena Genitourinary: No Dysuria, No Urinary Frequency, No Hematuria, No Urinary Incontinence, No Urgency, No Flank Pain, No Urinary Flow Changes, No Hesitancy Musculoskeletal: No joint pain, No Myalgias, No Joint Swelling Skin: No Skin Lesions, No rash Neuro: No Weakness, No Numbness, No Paresthesias, No Loss of Consciousness, No Dizziness, No Headache Psych: No Social Issues Heme/Lymph: No Bruising, No Bleeding,No Lymphadenopathy Endocrine: No Polyuria, No Polydipsia, No Temperature Intolerance Yes all other systems are reviewed and are negative Physical Exam Vital Signs: Vital Signs: Last Vital Signs Temp 97.9 F 03/26/20 11:53 Pulse 50 03/26/20 16:23 Resp 16 03/26/20 11:53 BP 171/63 H 03/26/20 17:00 Pulse Ox 99 03/26/20 11:53 Body Mass Index 29.1 Reviewed Const: General: cooperative and healthy appearing; No acute distress or intoxicated appearing Nutritional Appearance: average body habitus Orientation/consciousness: patient oriented x3 HENMT: Head: Yes normal to inspection Ears: hearing grossly normal bilaterally Eyes: General: appearance normal, both eyes and all related structures Visual Kitchen: normal visual kitchen by confrontation Neck: Neck: Yes normal visual inspection, No positive Brudzinski's sign, No positive Kernig's sign and No tender Thyroid: Thyroid normal Chest: Chest palpation & inspection: normal inspection of the chest Resp: Effort & Inspection: normal respiratory effort Auscultation: clear to auscultation bilaterally Cardio: Jugular venous distension: no JVD Rhythm: abnormal rhythm (Afib ) GI: Inspection: Yes normal to inspection Palpation (GI): Soft to palpation, Tenderness to palpation present (GI) in the LLQ, no guarding and not rigid Percussion: Yes normal to percussion Auscultation: normal bowel sounds : General: Yes no CVA tenderness Back/Spine/Pelvis: Back: no CVA tenderness Skin: General skin exam: no rashes or lesions noted Neuro: General: patient oriented x3 Extrem: General: Yes normal to inspection Course Course Course Narrative: 1245 States his blood pressure is always high Pain left lower quadrant does have history of colitis, labs ordered including CT of the abdomen pelvis chronically elevated renal function will need to do dry CT Will prescribe GI cocktail to see if there is any improvement. Reevaluation(s) Reevaluation #1: Labs consistent with previous. Reports feeling significant better after GI cocktail CT findings consistent with colitis. BP elevated given his dose of lisinopril and monitor neck ED with improvement. In terms of his abdominal pain colitis with superimposed gastritis. Requesting be discharged home will discharge home with antibiotics with clear precaution follow-up instructions. Plan also reviewed daughter agreeable. MDM - Abdominal Pain Lab Data Result diagrams: 03/26/20 12:38 03/26/20 12:38 Labs: Lab Results 03/26/20 03/26/20 03/26/20 Range/Units 12:38 12:38 12:38 WBC 8.7 (4.8-10.8) X10*3/uL RBC 3.90 L (4.60-5.80) X10*6/uL Hgb 12.8 L (14.0-18.0) g/dl Hct 36.5 L (42-52) % MCV 93.6 (80-98) fL MCH 32.8 (27.0-33.0) pg MCHC 35.1 (31.0-36.0) g/dl RDW 12.2 (11.0-16.0) % Plt Count 420 H (160-400) X10*3/uL MPV 10.3 (9.4-12.4) fL Immature Gran % (Auto) 0.5 H (0.0-0.4) % Neut % (Auto) 84.8 H (45-73) % Lymph % (Auto) 7.3 L (20-40) % Randolph % (Auto) 5.7 (2-11) % Eos % (Auto) 1.6 (0-4) % Baso % (Auto) 0.1 (0-2) % Lymph # (Auto) 0.6 L (1.2-4.9) X10*3/uL Randolph # (Auto) 0.5 (0.1-1.2) X10*3/uL Eos # (Auto) 0.1 (0.0-0.4) X10*3/uL Baso # (Auto) 0.0 (0.0-0.2) X10*3/uL Abs Immat Gran (auto) 0.04 H (0.00-0.03) X10*3/uL Absolute Neuts (auto) 7.4 (2.0-8.3) X10*3/uL Absolute Nucleated RBC 0.000 (0.0-0.012) X10*3/uL Nucleated RBC % (auto) 0.0 (0.0-0.2) /100WBC Smear Tech's Comments VERIFIED PT 16.5 H (10.8-13.0) SEC INR 1.4 H (0.9-1.1) APTT 61.0 H* (24.1-38.0) SEC Sodium 140 (135-145) mmol/L Potassium 4.1 (3.3-5.1) mmol/l Chloride 103 (96-108) mmol/L Carbon Dioxide 28 (22-29) mmol/L Anion Gap 13 (12-20) BUN 25 H (9-16) mg/dL Creatinine 1.81 H (0.5-1.4) mg/dL Estim Creat Clear Calc 32.1 Estimated GFR 36 Random Glucose 173 H (60-115) mg/dL Calcium 8.1 L (8.4-10.2) mg/dL Total Bilirubin 0.8 (0.0-1.0) mg/dL AST 25 (5-37) U/L ALT 13 (0-40) U/L Alkaline Phosphatase 125 H (39-117) U/L Troponin I High Sens (<3.5-35.0) ng/L Total Protein 5.5 L (6.5-8.0) g/dL Albumin 3.0 L (3.5-5.0) g/dL COVID-19 (JONATHON) (Negative) COVID-19 Clin Com 03/26/20 03/26/20 03/26/20 Range/Units 12:38 12:38 14:42 WBC (4.8-10.8) X10*3/uL RBC (4.60-5.80) X10*6/uL Hgb (14.0-18.0) g/dl Hct (42-52) % MCV (80-98) fL MCH (27.0-33.0) pg MCHC (31.0-36.0) g/dl RDW (11.0-16.0) % Plt Count (160-400) X10*3/uL MPV (9.4-12.4) fL Immature Gran % (Auto) (0.0-0.4) % Neut % (Auto) (45-73) % Lymph % (Auto) (20-40) % Randolph % (Auto) (2-11) % Eos % (Auto) (0-4) % Baso % (Auto) (0-2) % Lymph # (Auto) (1.2-4.9) X10*3/uL Randolph # (Auto) (0.1-1.2) X10*3/uL Eos # (Auto) (0.0-0.4) X10*3/uL Baso # (Auto) (0.0-0.2) X10*3/uL Abs Immat Gran (auto) (0.00-0.03) X10*3/uL Absolute Neuts (auto) (2.0-8.3) X10*3/uL Absolute Nucleated RBC (0.0-0.012) X10*3/uL Nucleated RBC % (auto) (0.0-0.2) /100WBC Smear Tech's Comments PT (10.8-13.0) SEC INR (0.9-1.1) APTT (24.1-38.0) SEC Sodium (135-145) mmol/L Potassium (3.3-5.1) mmol/l Chloride (96-108) mmol/L Carbon Dioxide (22-29) mmol/L Anion Gap (12-20) BUN (9-16) mg/dL Creatinine (0.5-1.4) mg/dL Estim Creat Clear Calc Estimated GFR Random Glucose (60-115) mg/dL Calcium (8.4-10.2) mg/dL Total Bilirubin (0.0-1.0) mg/dL AST (5-37) U/L ALT (0-40) U/L Alkaline Phosphatase (39-117) U/L Troponin I High Sens 17.8 16.8 (<3.5-35.0) ng/L Total Protein (6.5-8.0) g/dL Albumin (3.5-5.0) g/dL COVID-19 ([facility]ONATHON) Negative (Negative) COVID-19 Clin Com See Note Discharge Plan Discharge Clinical Impression: Colitis, Hypertension Patient Disposition: Home, Self-Care Instructions: Hypertension (ED), Colitis (ED) Additional Instructions: Monitor blood pressure closely Follow-up with your primary care doctor discussed 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 discussed Take your antibiotic as prescribed Return if any concerns or worsening symptoms Thank you Prescriptions: New levofloxacin 750 mg tablet 750 mg PO DAILY Qty: 7 RF: 0 metronidazole [Flagyl] 500 mg tablet 500 mg PO BID 10 Days Qty: 20 RF: 0 No Action carvedilol 3.125 mg tablet 3.125 mg PO BID 90 Days Qty: 180 RF: 1 torsemide 20 mg tablet 40 mg PO DAILY 90 Days Qty: 180 RF: 1 bisacodyl [Dulcolax (bisacodyl)] 5 mg tablet,delayed release (DR/EC) 10 mg PO ONCE 1 Days Qty: 2 RF: 0 polyethylene glycol 3350 [Miralax] 17 gram/dose powder 238 g PO ONCE 1 Days Qty: 238 RF: 0 lisinopril 10 mg tablet 10 mg PO DAILY Qty: 90 RF: 1 isosorbide mononitrate 120 mg tablet extended release 24 hr 120 mg PO DAILY 90 Days Qty: 90 RF: 1 atorvastatin 80 mg tablet 80 mg PO DAILY Qty: 90 RF: 2 levofloxacin 750 mg tablet 750 mg PO DAILY 7 Days Qty: 7 RF: 0 metronidazole [Flagyl] 500 mg tablet 500 mg PO BID 7 Days Qty: 14 RF: 0 nifedipine 60 mg tablet extended release 60 mg PO DAILY Qty: 60 RF: 3 clopidogrel 75 mg tablet 75 mg PO DAILY RF: 0 glucose 4 gram tablet,chewable 800f16 g PO RF: 0 (DME) FreeStyle Lite Strips Strip See Rx Instructions ea Not Applicable .MEDSUPPLY Qty: 10 RF: 0 cholecalciferol (vitamin D3) 50 mcg (2,000 unit) capsule 50 mcg PO DAILY RF: 0 Incruse Ellipta 62.5 mcg/actuation blister with device 1 inh inhalation DAILY RF: 0 fluticasone propion-salmeterol 250-50 mcg/dose blister with device 1 ea PO Q12H RF: 0 Eliquis 2.5 mg tablet 2.5 mg PO BID RF: 0 (DME) pen needle, diabetic 32 gauge x 5/32 needle See Rx Instructions ea subcut QID Qty: 50 RF: 0 alcohol swabs Pads, Medicated 0 pad topical RF: 0 dextrose 40 % gel PO RF: 0 albuterol sulfate 90 mcg/actuation HFA aerosol inhaler 0 mcg inhalation RF: 0 (DME) lancets 33 gauge misc See Rx Instructions ea .ROUTE .MEDSUPPLY Qty: 100 RF: 0 insulin aspart U-100 100 unit/mL (3 mL) insulin pen 8 unit subcut BID RF: 0 insulin glargine 100 unit/mL (3 mL) insulin pen 20 unit subcut BEDTIME RF: 0 famotidine 40 mg tablet 40 mg PO DAILY RF: 0 Referrals: Yoandy Lund MD [Primary Care Provider] - 5 days Interventions: ED Discharge Assessment Last Done: 03/26/20 17:55 Discharge Date/Time: 03/26/20 18:02 [facility] Past Medical History Medical History (Updated 03/27/20 @ 00:00 by Valarie Bardales) Abdominal pain Anemia 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 Mother No problems noted. Social History Social History Alcohol intake: never Smoking Status: Never smoker Smoked in Last 30 Days: No Advance Directives: No Advance Directives Information Provided: No
--- NOTE | 2020-03-26 12:42 | CT_ITS ---
EXAMINATION: CT ABDOMEN AND PELVIS WITHOUT CONTRAST CLINICAL INFORMATION: Abdominal pain left side. COMPARISON: 01/19/2020 TECHNIQUE: Multidetector volumetric imaging was performed from the superior aspect of the liver through the pubic symphysis. Sagittal and coronal reformatted images were obtained on the technologist's workstation. This CT examination was performed using dose optimization techniques as appropriate, variously including the following: *Automated exposure control *Adjustment of mA and/or kV according to patient size (this includes techniques or standardized protocols for targeted exams where dose is matched to indication/reason for exam; i.e. extremities or head) *Use of iterative reconstruction technique DLP: 735 mGy-cm FINDINGS: LUNG BASES: Bibasilar atelectasis. Trace right pleural effusion. The heart is enlarged with coronary artery calcifications. Small pericardial effusion noted. This is mildly increased from prior. LIVER, GALLBLADDER, AND BILIARY TREE: The liver is normal in size, shape, and attenuation. No focal hepatic lesion or biliary ductal dilatation is present. The gallbladder is unremarkable with no evidence of radiopaque gallstones, gallbladder wall thickening, or obvious pericholecystic inflammatory changes. PANCREAS: Unremarkable. SPLEEN: Unremarkable. ADRENAL GLANDS: Unremarkable. KIDNEYS AND URETERS: The kidneys are normal in size, shape, and attenuation. No hydronephrosis, hydroureter, or calculi seen. Mild symmetric perinephric stranding. Right cortical upper pole renal cyst noted BLADDER: Unremarkable. GASTROINTESTINAL TRACT: The stomach is unremarkable. Normal caliber small bowel. There is no obstruction. Colonic diverticulosis noted without diverticulitis. The appendix is seen and likely is normal. While much of the colon is decompressed, limiting evaluation, there does appear to be mild diffuse wall thickening with mild adjacent inflammation of the fat. This is seen throughout the entirety of the colon. No free air. Trace pelvic free fluid. ABDOMINAL WALL: No significant hernia is appreciated. LYMPH NODES: Normal. VASCULAR: Normal caliber aorta with mild atherosclerotic calcification. PELVIC VISCERA: The prostate and seminal vesicles are unremarkable. OSSEOUS STRUCTURES: No acute or suspicious osseous abnormality. Degenerative changes of the hips and spine. CT/CT abdomen pelvis wo con IMPRESSION: Mild diffuse wall thickening of the colon with adjacent inflammation of the fat, suggestive of colitis. Small pericardial effusion, which is mildly increased from prior.
[2020-03-26 12:48] LABS: Basophils Percent Auto 0.1 % (0-2); Eosinophils Absolute Auto 0.1 X10*3/uL (0.0-0.4); Eosinophils Percent Auto 1.6 % (0-4); Hematocrit 36.5 % (42-52); Hemoglobin 12.8 g/dl (14.0-18.0); Imm Gran Abs Auto 0.04 X10*3/uL (0.00-0.03); Imm Gran Pct Auto 0.5 % (0.0-0.4); Lymphocytes Absolute Auto 0.6 X10*3/uL (1.2-4.9); Lymphocytes Percent Auto 7.3 % (20-40); MANUAL DIFF FLAG SCAN; Mean Corpuscular HGB Conc 35.1 g/dl (31.0-36.0); Mean Corpuscular Hemoglobin 32.8 pg (27.0-33.0); Mean Corpuscular Volume 93.6 fL (80-98); Mean Platelet Volume 10.3 fL (9.4-12.4); Monocytes Absolute Auto 0.5 X10*3/uL (0.1-1.2); Monocytes Percent Auto 5.7 % (2-11); Neutrophils Absolute Auto 7.4 X10*3/uL (2.0-8.3); Neutrophils Percent Auto 84.8 % (45-73); Platelet Count 420 X10*3/uL (160-400); Red Cell Distribution Width 12.2 % (11.0-16.0); SCAN SMEAR FLAG 1; White Blood Count 8.7 X10*3/uL (4.8-10.8)
[2020-03-26 12:58] LABS: IDNOW Serial# 9DD0AD1C
[2020-03-26 12:59] LABS: COVID-19 Test Negative (Negative)
[2020-03-26] MEDS: Magnesium Hydrox/Alum Hydrox 30 ML ORAL.SUSP PO (13:02)
[2020-03-26] MEDS: Lidocaine HCl Viscous 2 % 15 ML SOLUTION 10 ML MUCOUS MEM (13:02)
[2020-03-26 13:03] LABS: INTERNATIONAL NORM RATIO 1.4 (0.9-1.1); Prothrombin Time 16.5 SEC (10.8-13.0)
[2020-03-26 13:18] LABS: Troponin-I High Sensitivity 17.8 ng/L (<3.5-35.0)
[2020-03-26 13:23] LABS: Calcium 8.1 mg/dL (8.4-10.2)
[2020-03-26 13:31] LABS: SLIDE REVIEW VERIFIED
[2020-03-26 13:36] LABS: Alanine Aminotransferase 13 U/L (0-40); Alkaline Phosphatase 125 U/L (39-117); Anion Gap 13 (12-20); Aspartate Amino Transferase 25 U/L (5-37); Bilirubin Total 0.8 mg/dL (0.0-1.0); Blood Urea Nitrogen 25 mg/dL (9-16); Carbon Dioxide 28 mmol/L (22-29); Chloride 103 mmol/L (96-108); Creatinine Clr Calc Pharmacy 32.1; Estimated Glomerular Filt Rate 36; Glucose Random 173 mg/dL (60-115); Potassium 4.1 mmol/l (3.3-5.1); Sodium 140 mmol/L (135-145); Total Protein 5.5 g/dL (6.5-8.0)
[2020-03-26 14:43] VITALS: BP 210/93; PULSE 50
[2020-03-26] MEDS: Labetalol HCL 100 MG/20 ML VIAL 10 MG IVPUSH (14:43)
[2020-03-26 15:07] VITALS: BP 211/65
[2020-03-26 15:24] LABS: Troponin-I High Sensitivity 16.8 ng/L (<3.5-35.0)
[2020-03-26 16:23] VITALS: BP 211/65; PULSE 50
[2020-03-26] MEDS: hydrALAZINE HCl 20 MG/ML VIAL 5 MG IVPUSH (16:23)
[2020-03-26 17:00] VITALS: BP 171/63
== END 2020-03-26 18:02 | disposition home or self-care (01) ==
PROVIDERS: Nurse Practitioner Primary Care; Emergency Provider Emergency Medicine; PCP Internal Medicine
DX: K52.9 Noninfective gastroenteritis and colitis, unspecified (principal); I10 Essential (primary) hypertension; Z20.822 Contact with and (suspected) exposure to COVID-19; E11.9 Type 2 diabetes mellitus without complications; I48.91 Unspecified atrial fibrillation
CPT/HCPCS: 36415; 74176; 80053; 84484; 85025; 85610; 85730; 87635; 93005; 96374; 96375; 99284

== ENCOUNTER 2020-03-28 20:24 | Inpatient (IN) | payer MEDICARE, SELFPAY ==
--- NOTE | 2020-03-28 | ECG_ITS ---
Test Reason : REPEAT Blood Pressure : / mmHG Vent. Rate : 050 BPM Atrial Rate : 085 BPM P-R Int : 000 ms QRS Dur : 104 ms QT Int : 464 ms P-R-T Axes : 000 -54 -20 degrees QTc Int : 423 ms Atrial fibrillation with slow ventricular response Left axis deviation Septal infarct (cited on or before 21-JUL-2019) Inferior infarct (cited on or before 21-JUL-2019) Abnormal ECG When compared with ECG of 29-MAR-2020 02:15, No significant changes seen Referred By: Kavya Dunn Electronically Signed By: LANCE
[2020-03-28 20:40] VITALS: PULSE 54; RESP 18; TEMP 36.6; O2SAT 96; BMI 29.1
[2020-03-28 21:01] VITALS: BP 218/100; PULSE 55; RESP 21; TEMP 36.8; O2SAT 97
--- NOTE | 2020-03-28 21:39 | ED.ABDPAIN ---
HPI - Abdominal Pain General Chief Complaint: Abdominal Pain Stated Complaint: Abdominal Pain Time Seen by Provider: 03/28/20 21:13 Source: patient Mode of arrival: ambulatory History of Present Illness HPI narrative: 85-year-old male with significant past medical history of next congestive heart failure, NSTEMI, and echo with an EF of 35-40%, chronic AFib and anticoagulated, diabetes who presents after being evaluated on 03/26 and determine at that time to have colitis and discharged on a course of levofloxacin and Flagyl. Patient states that since his discharge he has continued with the abdominal pain as well as nausea and vomiting and stating he can only tolerate water. He denies any diarrhea or urinary symptoms and denies shortness of breath/chest pain/headache/dizziness. Patient denies diarrhea, but states he has been having black stools. Related Data Home Medications Medication Instructions Recorded Confirmed albuterol sulfate 90 mcg/actuation 0 mcg INHALATION Q4-6H PRN 12/04/19 03/29/20 aerosol inhaler alcohol swabs 0 pad TOPICAL CONT 12/04/19 03/29/20 apixaban 2.5 mg tablet 2.5 mg PO BID 12/04/19 03/29/20 blood sugar diagnostic #10 ea 12/04/19 03/17/20 cholecalciferol (vitamin D3) 50 50 mcg PO DAILY 12/04/19 03/29/20 mcg (2,000 unit) capsule clopidogrel 75 mg tablet 75 mg PO DAILY 12/04/19 03/29/20 dextrose 40 % oral gel g PO PRN 12/04/19 03/17/20 fluticasone 250 mcg-salmeterol 50 1 ea PO Q12H 12/04/19 03/29/20 mcg/dose blistr powdr for inhalation glucose 4 gram chewable tablet 800f16 g PO PRN 12/04/19 03/17/20 lancets 33 gauge #100 ea 12/04/19 03/17/20 pen needle, diabetic 32 gauge x #50 ea 12/04/19 03/17/20 umeclidinium 62.5 mcg/actuation 1 inh INHALATION DAILY 12/04/19 03/29/20 blister powder for inhalation insulin aspart U-100 100 unit/mL 8 unit SUBCUT BID ml 02/12/20 03/29/20 (3 mL) subcutaneous pen insulin glargine 100 unit/mL (3 20 unit SUBCUT BEDTIME ml 02/12/20 03/29/20 mL) subcutaneous pen famotidine 40 mg tablet 40 mg PO DAILY 03/10/20 03/29/20 Previous Rx's Medication Instructions Recorded carvedilol 3.125 mg tablet 3.125 mg PO BID 90 Days #180 tab 01/09/20 torsemide 20 mg tablet 40 mg PO DAILY 90 Days #180 tab 01/09/20 levofloxacin 750 mg PO DAILY 7 Days #7 tab 01/19/20 metronidazole [Flagyl] 500 mg PO BID 7 Days #14 tab 01/19/20 bisacodyl 5 mg tablet,delayed 10 mg PO ONCE 1 Days #2 tab 02/04/20 release polyethylene glycol 3350 17 238 g PO ONCE 1 Days #238 g 02/04/20 gram/dose oral powder lisinopril 10 mg tablet 10 mg PO DAILY #90 tab 02/11/20 isosorbide mononitrate 120 mg 120 mg PO DAILY 90 Days #90 tab 02/12/20 tablet,extended release 24 hr atorvastatin 80 mg tablet 80 mg PO DAILY #90 tab 02/16/20 nifedipine 60 mg tablet,extended 60 mg PO DAILY #60 tab 03/19/20 release levofloxacin 750 mg PO DAILY #7 tab 03/26/20 metronidazole [Flagyl] 500 mg PO BID 10 Days #20 tab 03/26/20 Allergies Allergy/AdvReac Type Severity Reaction Status Date / Time No Known Allergies Allergy Verified 03/17/20 11:07 Review of Systems Review of Systems Pertinent positives and negatives as stated in HPI 10 point review of systems is otherwise negative. Physical Exam Vital Signs: Vital Signs: Last Vital Signs Temp 98.3 F 03/28/20 22:00 Pulse 47 L 03/29/20 07:09 Resp 18 03/29/20 07:09 BP 166/62 H 03/29/20 07:09 Pulse Ox 96 03/29/20 07:09 Body Mass Index 29.1 VITAL SIGNS: Reviewed. GENERAL: Well developed, well nourished, in no acute distress. HEAD: Normocephalic/atraumatic, EYES: PERRLA, EOMI NOSE: Nares patent bilateral OROPHARYNX: no oral lesions noted, posterior pharynx clear NECK: Supple, no adenopathy LUNGS: Normal breath sounds. No adventitious sounds or accessory muscle use. SpO2<96> CARDIOVASCULAR: Regular rate and rhythm without noted murmurs, no JVD or lower extremity edema. ABDOMEN: Soft, tenderness at left lower quadrant without rebound, non-distended with bowel sounds. CONNER: No inflamed hemorrhoids noted, rectal vault containing dark brown soft stool without gross blood, good rectal tone. (access representative: Aleena) NEUROLOGIC: Alert and oriented x 4. Strength and sensation to light touch were grossly intact x 4. Course Course Course Narrative: This is an 85-year-old male with history and clinical presentation consistent with failed outpatient antibiotics for diagnosis of colitis. On review of documentation it seems that patient has had recurring issues with colitis and given history of atrial fibrillation will evaluate for the possibility of ischemic colitis despite absence of GI bleeding and given the fact that patient has had multiple antibiotic treatments for colitis. Pain was treated with fentanyl and Dilaudid with resolution. Review of all investigations and chemistries are chronically stable, high sensitivity troponin was noted to be 74.7 without acute EKG changes and although felt to be attributable to patient's elevated blood pressure 2nd troponin was obtained which showed a greater than delta 50% increase and prompted a discussion with Cardiology the details of which are listed below. In addition, it was noted that patient's BNP is increasingly elevated without clinical, objective, or history support for acute CHF exacerbation thought to be primarily elevated due to renal function. Patient is COVID-19 negative. Unable to perform CT scan with IV contrast to further assess for alternate etiology of colitis due to poor renal function. The case was discussed with the inpatient hospitalist team who is agreeable for admission. Reevaluation(s) Reevaluation #1: Nurse concerned about bigeminy episode that occurred 2330. Strips reviewed and noted that patient's blood pressure was elevated again and multiple attempts to get medication list from family unsuccessful. Time: 23:45 Reevaluation #2: Discussed with Dr Gill: atrial fibrillation, recommend pain control, and elevated trops secondary to levated BP, consider nitroglycerin if pain control unsuccessful. Time: 02:15 MDM - Abdominal Pain Lab Data Result diagrams: 03/28/20 21:34 03/28/20 21:34 Labs: Lab Results 03/28/20 03/28/20 03/28/20 Range/Units 21:34 21:34 21:34 WBC 10.4 (4.8-10.8) X10*3/uL RBC 4.13 L (4.60-5.80) X10*6/uL Hgb 13.6 L (14.0-18.0) g/dl Hct 38.6 L (42-52) % MCV 93.5 (80-98) fL MCH 32.9 (27.0-33.0) pg MCHC 35.2 (31.0-36.0) g/dl RDW 12.1 (11.0-16.0) % Plt Count 427 H (160-400) X10*3/uL MPV 10.5 (9.4-12.4) fL Immature Gran % (Auto) 0.3 (0.0-0.4) % Neut % (Auto) 79.3 H (45-73) % Lymph % (Auto) 10.1 L (20-40) % [place] % (Auto) 9.2 (2-11) % Eos % (Auto) 0.9 (0-4) % Baso % (Auto) 0.2 (0-2) % Lymph # (Auto) 1.1 L (1.2-4.9) X10*3/uL [place] # (Auto) 1.0 (0.1-1.2) X10*3/uL Eos # (Auto) 0.1 (0.0-0.4) X10*3/uL Baso # (Auto) 0.0 (0.0-0.2) X10*3/uL Abs Immat Gran (auto) 0.03 (0.00-0.03) X10*3/uL Absolute Neuts (auto) 8.3 (2.0-8.3) X10*3/uL Absolute Nucleated RBC 0.000 (0.0-0.012) X10*3/uL Nucleated RBC % (auto) 0.0 (0.0-0.2) /100WBC PT (10.8-13.0) SEC INR (0.9-1.1) APTT (24.1-38.0) SEC Sodium 138 (135-145) mmol/L Potassium 3.9 (3.3-5.1) mmol/L Chloride 100 (96-108) mmol/L Carbon Dioxide 27 (22-29) mmol/L Anion Gap 15 (12-20) BUN 21 H (9-16) mg/dL Creatinine 1.97 H (0.5-1.4) mg/dL Estim Creat Clear Calc 29.4 Estimated GFR 33 POC Glucose (60-115) mg/dL Random Glucose 160 H (60-115) mg/dL Lactic Acid (0.5-2.0) mmol/L Calcium 8.4 (8.4-10.2) mg/dL Magnesium (1.6-2.6) mg/dL Total Bilirubin 0.9 (0.0-1.0) mg/dL AST 20 (5-37) U/L ALT 11 (0-40) U/L Alkaline Phosphatase 121 H (39-117) U/L Troponin I High Sens 74.7 H D (<3.5-35.0) ng/L B-Natriuretic Peptide (<100) pg/mL Total Protein 5.3 L (6.5-8.0) g/dL Albumin 3.1 L (3.5-5.0) g/dL Lipase 18 (8-78) U/L Urine Color Urine Appearance Urine pH (5.0-8.0) Ur Specific [place] (1.005-1.025) Urine Protein (NEG-TRACE) MG/DL Urine Glucose (UA) (NEG) MG/DL Urine Ketones (NEG) MG/DL Urine Blood (NEG) Urine Nitrite (NEG) Ur Leukocyte Esterase (NEG) Urine RBC (0) /HPF Urine WBC (0-4) /HPF Ur Squamous Epith Cells /LPF Amorphous Sediment /LPF Urine Bacteria /LPF Hyaline Casts /LPF Granular Casts /LPF Waxy Casts /LPF Stool Occult Blood (NEG) COVID-19 (JONATHON) (Negative) COVID-19 Clin Com 03/28/20 03/28/20 03/28/20 Range/Units 22:20 22:24 22:32 WBC (4.8-10.8) X10*3/uL RBC (4.60-5.80) X10*6/uL Hgb (14.0-18.0) g/dl Hct (42-52) % MCV (80-98) fL MCH (27.0-33.0) pg MCHC (31.0-36.0) g/dl RDW (11.0-16.0) % Plt Count (160-400) X10*3/uL MPV (9.4-12.4) fL Immature Gran % (Auto) (0.0-0.4) % Neut % (Auto) (45-73) % Lymph % (Auto) (20-40) % [place] % (Auto) (2-11) % Eos % (Auto) (0-4) % Baso % (Auto) (0-2) % Lymph # (Auto) (1.2-4.9) X10*3/uL [place] # (Auto) (0.1-1.2) X10*3/uL Eos # (Auto) (0.0-0.4) X10*3/uL Baso # (Auto) (0.0-0.2) X10*3/uL Abs Immat Gran (auto) (0.00-0.03) X10*3/uL Absolute Neuts (auto) (2.0-8.3) X10*3/uL Absolute Nucleated RBC (0.0-0.012) X10*3/uL Nucleated RBC % (auto) (0.0-0.2) /100WBC PT 15.1 H (10.8-13.0) SEC INR 1.3 H (0.9-1.1) APTT 45.2 H D (24.1-38.0) SEC Sodium (135-145) mmol/L Potassium (3.3-5.1) mmol/L Chloride (96-108) mmol/L Carbon Dioxide (22-29) mmol/L Anion Gap (12-20) BUN (9-16) mg/dL Creatinine (0.5-1.4) mg/dL Estim Creat Clear Calc Estimated GFR POC Glucose 178 H (60-115) mg/dL Random Glucose (60-115) mg/dL Lactic Acid (0.5-2.0) mmol/L Calcium (8.4-10.2) mg/dL Magnesium (1.6-2.6) mg/dL Total Bilirubin (0.0-1.0) mg/dL AST (5-37) U/L ALT (0-40) U/L Alkaline Phosphatase (39-117) U/L Troponin I High Sens (<3.5-35.0) ng/L B-Natriuretic Peptide (<100) pg/mL Total Protein (6.5-8.0) g/dL Albumin (3.5-5.0) g/dL Lipase (8-78) U/L Urine Color Urine Appearance Urine pH (5.0-8.0) Ur Specific [place] (1.005-1.025) Urine Protein (NEG-TRACE) MG/DL Urine Glucose (UA) (NEG) MG/DL Urine Ketones (NEG) MG/DL Urine Blood (NEG) Urine Nitrite (NEG) Ur Leukocyte Esterase (NEG) Urine RBC (0) /HPF Urine WBC (0-4) /HPF Ur Squamous Epith Cells /LPF Amorphous Sediment /LPF Urine Bacteria /LPF Hyaline Casts /LPF Granular Casts /LPF Waxy Casts /LPF Stool Occult Blood NEG (NEG) COVID-19 (JONATHON) (Negative) COVID-19 Clin Com 03/28/20 03/28/20 03/29/20 Range/Units 22:32 22:32 01:13 WBC (4.8-10.8) X10*3/uL RBC (4.60-5.80) X10*6/uL Hgb (14.0-18.0) g/dl Hct (42-52) % MCV (80-98) fL MCH (27.0-33.0) pg MCHC (31.0-36.0) g/dl RDW (11.0-16.0) % Plt Count (160-400) X10*3/uL MPV (9.4-12.4) fL Immature Gran % (Auto) (0.0-0.4) % Neut % (Auto) (45-73) % Lymph % (Auto) (20-40) % [place] % (Auto) (2-11) % Eos % (Auto) (0-4) % Baso % (Auto) (0-2) % Lymph # (Auto) (1.2-4.9) X10*3/uL [place] # (Auto) (0.1-1.2) X10*3/uL Eos # (Auto) (0.0-0.4) X10*3/uL Baso # (Auto) (0.0-0.2) X10*3/uL Abs Immat Gran (auto) (0.00-0.03) X10*3/uL Absolute Neuts (auto) (2.0-8.3) X10*3/uL Absolute Nucleated RBC (0.0-0.012) X10*3/uL Nucleated RBC % (auto) (0.0-0.2) /100WBC PT (10.8-13.0) SEC INR (0.9-1.1) APTT (24.1-38.0) SEC Sodium (135-145) mmol/L Potassium (3.3-5.1) mmol/L Chloride (96-108) mmol/L Carbon Dioxide (22-29) mmol/L Anion Gap (12-20) BUN (9-16) mg/dL Creatinine (0.5-1.4) mg/dL Estim Creat Clear Calc Estimated GFR POC Glucose (60-115) mg/dL Random Glucose (60-115) mg/dL Lactic Acid 1.8 (0.5-2.0) mmol/L Calcium (8.4-10.2) mg/dL Magnesium 1.9 (1.6-2.6) mg/dL Total Bilirubin (0.0-1.0) mg/dL AST (5-37) U/L ALT (0-40) U/L Alkaline Phosphatase (39-117) U/L Troponin I High Sens 126.1 H D (<3.5-35.0) ng/L B-Natriuretic Peptide 938 H (<100) pg/mL Total Protein (6.5-8.0) g/dL Albumin (3.5-5.0) g/dL Lipase (8-78) U/L Urine Color Urine Appearance Urine pH (5.0-8.0) Ur Specific [place] (1.005-1.025) Urine Protein (NEG-TRACE) MG/DL Urine Glucose (UA) (NEG) MG/DL Urine Ketones (NEG) MG/DL Urine Blood (NEG) Urine Nitrite (NEG) Ur Leukocyte Esterase (NEG) Urine RBC (0) /HPF Urine WBC (0-4) /HPF Ur Squamous Epith Cells /LPF Amorphous Sediment /LPF Urine Bacteria /LPF Hyaline Casts /LPF Granular Casts /LPF Waxy Casts /LPF Stool Occult Blood (NEG) COVID-19 (JONATHON) (Negative) COVID-19 Clin Com 03/29/20 03/29/20 Range/Units 03:23 04:15 WBC (4.8-10.8) X10*3/uL RBC (4.60-5.80) X10*6/uL Hgb (14.0-18.0) g/dl Hct (42-52) % MCV (80-98) fL MCH (27.0-33.0) pg MCHC (31.0-36.0) g/dl RDW (11.0-16.0) % Plt Count (160-400) X10*3/uL MPV (9.4-12.4) fL Immature Gran % (Auto) (0.0-0.4) % Neut % (Auto) (45-73) % Lymph % (Auto) (20-40) % [place] % (Auto) (2-11) % Eos % (Auto) (0-4) % Baso % (Auto) (0-2) % Lymph # (Auto) (1.2-4.9) X10*3/uL [place] # (Auto) (0.1-1.2) X10*3/uL Eos # (Auto) (0.0-0.4) X10*3/uL Baso # (Auto) (0.0-0.2) X10*3/uL Abs Immat Gran (auto) (0.00-0.03) X10*3/uL Absolute Neuts (auto) (2.0-8.3) X10*3/uL Absolute Nucleated RBC (0.0-0.012) X10*3/uL Nucleated RBC % (auto) (0.0-0.2) /100WBC PT (10.8-13.0) SEC INR (0.9-1.1) APTT (24.1-38.0) SEC Sodium (135-145) mmol/L Potassium (3.3-5.1) mmol/L Chloride (96-108) mmol/L Carbon Dioxide (22-29) mmol/L Anion Gap (12-20) BUN (9-16) mg/dL Creatinine (0.5-1.4) mg/dL Estim Creat Clear Calc Estimated GFR POC Glucose (60-115) mg/dL Random Glucose (60-115) mg/dL Lactic Acid (0.5-2.0) mmol/L Calcium (8.4-10.2) mg/dL Magnesium (1.6-2.6) mg/dL Total Bilirubin (0.0-1.0) mg/dL AST (5-37) U/L ALT (0-40) U/L Alkaline Phosphatase (39-117) U/L Troponin I High Sens (<3.5-35.0) ng/L B-Natriuretic Peptide (<100) pg/mL Total Protein (6.5-8.0) g/dL Albumin (3.5-5.0) g/dL Lipase (8-78) U/L Urine Color [place] Urine Appearance CLEAR Urine pH 6.5 (5.0-8.0) Ur Specific [place] 1.020 (1.005-1.025) Urine Protein 3+ H (NEG-TRACE) MG/DL Urine Glucose (UA) 250 H (NEG) MG/DL Urine Ketones 5 (NEG) MG/DL Urine Blood 2+ H (NEG) Urine Nitrite NEG (NEG) Ur Leukocyte Esterase NEG (NEG) Urine RBC 1-4 (0) /HPF Urine WBC 1-4 (0-4) /HPF Ur Squamous Epith Cells TRACE /LPF Amorphous Sediment 2+ /LPF Urine Bacteria TRACE /LPF Hyaline Casts 10-14 /LPF Granular Casts 5-9 /LPF Waxy Casts 1-4 /LPF Stool Occult Blood (NEG) COVID-19 (JONATHON) Negative (Negative) COVID-19 Clin Com See Note ECG Data Attestation: I personally reviewed and interpreted this ECG as follows: Prior ECG tracings: available for review (03/26/2020 no acute changes on comparison) Interpretation: Atrial fibrillation, HR-66, no evidence of acute ischemia, QTC within normal limits Discharge Plan Discharge Clinical Impression: Colitis, HEIDI (acute kidney injury) Patient Disposition: Admitted As Inpatient [facility] Past Medical History Source: nursing notes reviewed Medical History Abdominal pain Anemia 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 Mother No problems noted. Social History Social History Alcohol intake: never Smoking Status: Never smoker Smoked in Last 30 Days: No Use of substances other than those prescribed or required for medical reasons: No Advance Directives: No Advance Directives Information Provided: No
[2020-03-28 21:41] LABS: MANUAL DIFF FLAG NO
[2020-03-28 21:43] LABS: Basophils Percent Auto 0.2 % (0-2); Eosinophils Absolute Auto 0.1 X10*3/uL (0.0-0.4); Eosinophils Percent Auto 0.9 % (0-4); Hematocrit 38.6 % (42-52); Hemoglobin 13.6 g/dl (14.0-18.0); Imm Gran Abs Auto 0.03 X10*3/uL (0.00-0.03); Imm Gran Pct Auto 0.3 % (0.0-0.4); Lymphocytes Absolute Auto 1.1 X10*3/uL (1.2-4.9); Lymphocytes Percent Auto 10.1 % (20-40); Mean Corpuscular HGB Conc 35.2 g/dl (31.0-36.0); Mean Corpuscular Hemoglobin 32.9 pg (27.0-33.0); Mean Corpuscular Volume 93.5 fL (80-98); Mean Platelet Volume 10.5 fL (9.4-12.4); Monocytes Percent Auto 9.2 % (2-11); Neutrophils Absolute Auto 8.3 X10*3/uL (2.0-8.3); Neutrophils Percent Auto 79.3 % (45-73); Platelet Count 427 X10*3/uL (160-400); Red Blood Count 4.13 X10*6/uL (4.60-5.80); Red Cell Distribution Width 12.1 % (11.0-16.0); White Blood Count 10.4 X10*3/uL (4.8-10.8)
[2020-03-28 22:00] VITALS: BP 128/89; PULSE 54; RESP 15; TEMP 36.8; O2SAT 95
[2020-03-28 22:00] LABS: Alanine Aminotransferase 11 U/L (0-40); Albumin Level 3.1 g/dL (3.5-5.0); Alkaline Phosphatase 121 U/L (39-117); Anion Gap 15 (12-20); Aspartate Amino Transferase 20 U/L (5-37); Bilirubin Total 0.9 mg/dL (0.0-1.0); Blood Urea Nitrogen 21 mg/dL (9-16); Calcium 8.4 mg/dL (8.4-10.2); Carbon Dioxide 27 mmol/L (22-29); Chloride 100 mmol/L (96-108); Creatinine Clr Calc Pharmacy 29.4; Estimated Glomerular Filt Rate 33; Glucose Random 160 mg/dL (60-115); Lipase 18 U/L (8-78); Potassium 3.9 mmol/L (3.3-5.1); Sodium 138 mmol/L (135-145); Total Protein 5.3 g/dL (6.5-8.0)
[2020-03-28 22:15] LABS: Troponin-I High Sensitivity 74.7 ng/L (<3.5-35.0)
[2020-03-28 22:39] LABS: Glucose, Whole Blood 178 mg/dL (60-115)
[2020-03-28 22:44] LABS: OBS Int Ctl Valid YES; OBS1 NEG (NEG)
[2020-03-28 22:52] LABS: INTERNATIONAL NORM RATIO 1.3 (0.9-1.1); Prothrombin Time 15.1 SEC (10.8-13.0)
[2020-03-28 22:54] LABS: Partial Thromboplastin Time 45.2 SEC (24.1-38.0)
[2020-03-28 22:59] LABS: Lactic Acid 1.8 mmol/L (0.5-2.0)
[2020-03-28 23:03] LABS: Magnesium 1.9 mg/dL (1.6-2.6)
[2020-03-28 23:39] VITALS: BP 192/96; PULSE 66
--- NOTE | 2020-03-28 23:39 | CT_ITS ---
EXAM: NONCONTRAST CT OF THE CHEST; NONCONTRAST CT OF THE ABDOMEN AND PELVIS INDICATION: Cough, persistent abdominal pain COMPARISON: 03/26/2020 TECHNIQUE: No IV contrast was utilized. Multidetector helical imaging was performed through the chest, abdomen, and pelvis. Coronal and sagittal reformatted images were created at the technologist workstation. DOSE LOWERING TECHNIQUES: This CT examination was performed using dose optimization techniques as appropriate, variously including the following: - Automated exposure control - Adjustment of mA and/or kV according to patient size (this includes techniques or standardized protocols for targeted exams were dose is matched to indication/reason for exam; i.e. extremities or head) - Use of iterative reconstruction technique DLP: 1110 mGy-cm FINDINGS: Chest: Detailed evaluation of the lung parenchyma is limited due to respiratory motion artifact. No dense consolidation bilaterally. There is mild interlobular septal thickening suspicious for mild interstitial edema. Trace right pleural effusion is present. No pneumothorax. The visualized thyroid gland is unremarkable. There are subcentimeter mediastinal lymph nodes within the range of normal variation. There is cardiomegaly with a small pericardial effusion. Coronary artery calcifications are present. Scattered atherosclerotic calcifications are present. No axillary lymphadenopathy is present. There are changes of diffuse idiopathic skeletal hyperostosis in the thoracic spine. Abdomen/Pelvis: The liver is homogeneous in attenuation without intrahepatic biliary ductal dilatation. The gallbladder is unremarkable. The unenhanced spleen, pancreas, and adrenal glands are within normal limits. Redemonstrated bilateral perinephric stranding. No hydronephrosis. Redemonstrated right renal cyst. No renal or ureteral calculi are present. The urinary bladder is unremarkable. The prostate and seminal vesicles are unremarkable. There is a questionable short segment of colonic wall thickening in the descending colon of the left abdomen, suboptimally assessed due to incomplete distention; this could reflect a colitis in the proper clinical setting. No evidence of bowel obstruction. There is sigmoid colon diverticulosis without convincing diverticulitis. No free fluid or free air is present. There is moderate atherosclerotic calcification. No retroperitoneal or pelvic lymphadenopathy is seen. There are scattered degenerative changes of the lumbar spine. CT/CT abdomen pelvis wo con IMPRESSION: 1. Possible short segment of colitis in the descending colon. 2. Pulmonary findings suspicious for mild interstitial edema. 3. Trace right pleural effusion. Small pericardial effusion.
[2020-03-28 23:40] VITALS: BP 246/102; PULSE 53; RESP 18
--- NOTE | 2020-03-28 23:41 | PC.NURSE ---
pt had witnessed episode of bigeminy by this rn. bp on rt arm was 197/100 and repeated to be192/96. on left arm was 246/102. bp repeat on left was 256/91. bp confirmed x2 in each arm. bp confirmed x2 in each arm. aware. monitoring at this time.
[2020-03-29] VITALS (23 sets, daily range): BP systolic 146–248; BP diastolic 57–92; PULSE 45–66; RESP 12–20; TEMP 36.7–36.8; O2SAT 58–98
[2020-03-29] MEDS: fentaNYL citrate/PF 100 MCG/2 ML VIAL 25 MCG IVPUSH (00:02)
--- NOTE | 2020-03-29 00:21 | PC.NURSE ---
family updated on condition. continuing to monitor bp and pain level. contact made to radha [phone]
--- NOTE | 2020-03-29 00:32 | PC.NURSE ---
contact made [facility] in [place]. aranda from [employer]. will fax updated claim hx to [facility] to the attention of this rn.
[2020-03-29] MEDS: hydrALAZINE HCl 20 MG/ML VIAL 5 MG IVPUSH (00:40)
--- NOTE | 2020-03-29 00:57 | PC.NURSE ---
md aware of bp and pain. continuting to raz.
--- NOTE | 2020-03-29 01:35 | PC.NURSE ---
MD AWARE OF PT REPORTING NAUSEA AND PAIN. MD AWARE OF BP. CONTINUING TO MONITOR AT THIS TIME.
[2020-03-29 01:57] LABS: Troponin-I High Sensitivity 126.1 ng/L (<3.5-35.0)
--- NOTE | 2020-03-29 01:58 | ECG_ITS ---
Test Reason : REPEAT Blood Pressure : / mmHG Vent. Rate : 052 BPM Atrial Rate : 381 BPM P-R Int : 000 ms QRS Dur : 102 ms QT Int : 458 ms P-R-T Axes : 000 -53 -13 degrees QTc Int : 425 ms Atrial fibrillation with slow ventroicular response Left axis deviation Septal infarct (cited on or before 21-JUL-2019) Inferior infarct , age undetermined Abnormal ECG When compared with ECG of 28-MAR-2020 20:45, No significant changes seen Referred By: Kavya Dunn Electronically Signed By:Bryan Gill
[2020-03-29] MEDS: ondansetron HCL 4 MG/2 ML VIAL IVPUSH (02:00)
[2020-03-29] MEDS: NIFEdipine ER 30 MG TAB.ER.24 PO (02:12)
[2020-03-29] MEDS: HYDROmorphone HCl 0.5 MG/0.5 ML SYRINGE 0.25 MG IVPUSH (02:48)
[2020-03-29 02:57] LABS: B Type Natriuretic Peptide 938 pg/mL (<100)
[2020-03-29 03:33] LABS: Glucose Urine UA 250 MG/DL (NEG); Leukocyte Esterase Urine NEG (NEG); Nitrite Urine NEG (NEG); PH 6.5 (5.0-8.0); Urine Blood 2+ (NEG); Urine Ketones 5 MG/DL (NEG); Urine Protein 3+ MG/DL (NEG-TRACE)
--- NOTE | 2020-03-29 03:42 | PC.NURSE ---
PCT/ERT noted HR to be in 30s, afib. Notified this rn. aware. Continuing to monitor.
[2020-03-29 03:45] LABS: Appearance Urine CLEAR; Color Urine AMBER
--- NOTE | 2020-03-29 03:58 | PC.NURSE ---
MD aware of hr ranging from 35-54. Rate remains irregular. dilaudid appeared to have good effect. ua sent from straight cath. patient tolerated well. pt resting now
[2020-03-29 04:00] LABS: Bacteria Urine TRACE /LPF; Squamous Epithelial Cell Urine TRACE /LPF
[2020-03-29 04:01] LABS: Amorphous Sediment Urine 2+ /LPF
--- NOTE | 2020-03-29 04:10 | PC.NURSE ---
md aware of covid need for floor placement. Plan to order nuno swab.
--- NOTE | 2020-03-29 04:35 | PC.NURSE ---
bp now increasing hr remains in the mid 40s. patient reports adequate pain managment. md aware. monitoring at this this time.
[2020-03-29 04:40] LABS: COVID-19 Test Negative (Negative); IDNOW Serial# 9DD0AD1C
--- NOTE | 2020-03-29 05:27 | PC.NURSE ---
md aware of sustained bradycardia. rate of 30-42. patient remains asymptomatic at this time. md aware.
[2020-03-29] MEDS: hydrALAZINE HCl 20 MG/ML VIAL 10 MG IVPUSH (05:59)
--- NOTE | 2020-03-29 06:06 | P.HPHOSP_ITS ---
History of Present Illness Date of Service: 03/29/20 Chief Complaint: Abdominal pain 85 y/o male with an extensive PMHX who presented from home due to persistent abdominal pain. Per history provided by the patient, Last started presenting with a severe abdominal pain, 10/10, diffusely, at rest, burning l jamilah, associated with poor appetite, nausea and vomiting. That day patient visited the ED and was prescribed Levaquin and flagyl for colitis. Per patient course of antibiotics did not improve his symptoms for what decided to come to the ED for further evaluation. On presentation to the ED today patient is found to have a BP of 218/100 - 246/92 mmHg. Patient was given home BP meds as well as multiple IV BP meds with partial improvement of his BP. On labs creatinine is 1.97 which is baseline for patient. Lactate normal. Troponin noted to be 74.7 initially which increased to 126.1, BNP of 938. Cardiology was contacted who did not suggest any evidence of ACS at present and most likely elevated troponin to be due to demand ischemia given the hypertensive urgency. CT abdomen was obtained which shows colitis in the descending colon. Decision for admission given. Patient was seen and evaluated at the bedside, laying down in bed in mild discomfort. ROS as above otherwise negative. Physical exam does not shows any evidence of rebound tenderness or tenderness on deep palpation of the abdomen. No evidence of abdominal distention. Patient denies any chest pain, SOB, blood in stool or vomiting blood. 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 Mother No problems noted. Surgical History Hx of colonoscopy Social History Alcohol intake: never Smoking Status: Never smoker Smoked in Last 30 Days: No Use of substances other than those prescribed or required for medical reasons: No Advance Directives: No Advance Directives Information Provided: No Meds Allergies Allergy/AdvReac Type Severity Reaction Status Date / Time No Known Allergies Allergy Verified 03/17/20 11:07 Home Medications Medication Instructions Recorded Confirmed Type albuterol sulfate 90 mcg/actuation 0 mcg INHALATION Q4-6H PRN 12/04/19 03/29/20 History aerosol inhaler alcohol swabs 0 pad TOPICAL CONT 12/04/19 03/29/20 History apixaban 2.5 mg tablet 2.5 mg PO BID 12/04/19 03/29/20 History blood sugar diagnostic #10 ea 12/04/19 03/17/20 History cholecalciferol (vitamin D3) 50 50 mcg PO DAILY 12/04/19 03/29/20 History mcg (2,000 unit) capsule clopidogrel 75 mg tablet 75 mg PO DAILY 12/04/19 03/29/20 History dextrose 40 % oral gel g PO PRN 12/04/19 03/17/20 History fluticasone 250 mcg-salmeterol 50 1 ea PO Q12H 12/04/19 03/29/20 History mcg/dose blistr powdr for inhalation glucose 4 gram chewable tablet 800f16 g PO PRN 12/04/19 03/17/20 History lancets 33 gauge #100 ea 12/04/19 03/17/20 History pen needle, diabetic 32 gauge x #50 ea 12/04/19 03/17/20 History 5/32 umeclidinium 62.5 mcg/actuation 1 inh INHALATION DAILY 12/04/19 03/29/20 History blister powder for inhalation insulin aspart U-100 100 unit/mL 8 unit SUBCUT BID ml 02/12/20 03/29/20 History (3 mL) subcutaneous pen insulin glargine 100 unit/mL (3 20 unit SUBCUT BEDTIME ml 02/12/20 03/29/20 History mL) subcutaneous pen famotidine 40 mg tablet 40 mg PO DAILY 03/10/20 03/29/20 History Physical Exam Vital Signs and Narrative: Vital Signs: Last Vital Signs Temp 98.3 F 03/28/20 22:00 Pulse 47 L 03/29/20 06:00 Resp 18 03/29/20 06:00 BP 204/77 H 03/29/20 06:00 Pulse Ox 96 03/29/20 06:00 Body Mass Index 29.1 Const: General: cooperative, comfortable and no acute distress Orientation/consciousness: oriented to person, oriented to place and oriented to time HENMT: Head: Yes normal to inspection Eyes: General: appearance normal, both eyes and all related structures Neck: Yes normal visual inspection Chest: Chest palpation & inspection: normal inspection of the chest Resp: Effort & Inspection: normal respiratory effort Auscultation: clear to auscultation bilaterally Cardio: Jugular venous distension: no JVD Rate: regular rate Rhythm: regular rhythm Heart sounds: S1 normal heart sound present and S2 normal heart sound present GI: Inspection: Yes normal to inspection Skin: General skin exam: no rashes or lesions noted Neuro: General: oriented to person, oriented to place and oriented to time Cognition (Neuro): normal cognition Extrem: General: Yes normal to inspection Results Labs CBC and Chem 7: 03/28/20 21:34 03/28/20 21:34 Labs: Laboratory Results - last 24 hr 03/28/20 03/28/20 03/28/20 21:34 21:34 21:34 MCV 93.5 MCH 32.9 MCHC 35.2 RDW 12.1 Plt Count 427 H MPV 10.5 Immature Gran % (Auto) 0.3 Neut % (Auto) 79.3 H Lymph % (Auto) 10.1 L [place] % (Auto) 9.2 Eos % (Auto) 0.9 Baso % (Auto) 0.2 Lymph # (Auto) 1.1 L [place] # (Auto) 1.0 Eos # (Auto) 0.1 Baso # (Auto) 0.0 Abs Immat Gran (auto) 0.03 Absolute Neuts (auto) 8.3 Absolute Nucleated RBC 0.000 Nucleated RBC % (auto) 0.0 PT INR APTT Anion Gap 15 Estim Creat Clear Calc 29.4 Estimated GFR 33 POC Glucose Random Glucose 160 H Lactic Acid Calcium 8.4 Magnesium Total Bilirubin 0.9 AST 20 ALT 11 Alkaline Phosphatase 121 H Troponin I High Sens 74.7 H D B-Natriuretic Peptide Total Protein 5.3 L Albumin 3.1 L Lipase 18 Urine Color Urine Appearance Urine pH Ur Specific [place] Urine Protein Urine Glucose (UA) Urine Ketones Urine Blood Urine Nitrite Ur Leukocyte Esterase Urine RBC Urine WBC Ur Squamous Epith Cells Amorphous Sediment Urine Bacteria Hyaline Casts Granular Casts Waxy Casts Stool Occult Blood COVID-19 (JONATHON) COVID-19 Clin Com 03/28/20 03/28/20 03/28/20 22:20 22:24 22:32 MCV MCH MCHC RDW Plt Count MPV Immature Gran % (Auto) Neut % (Auto) Lymph % (Auto) Cecil % (Auto) Eos % (Auto) Baso % (Auto) Lymph # (Auto) Cecil # (Auto) Eos # (Auto) Baso # (Auto) Abs Immat Gran (auto) Absolute Neuts (auto) Absolute Nucleated RBC Nucleated RBC % (auto) PT 15.1 H INR 1.3 H APTT 45.2 H D Anion Gap Estim Creat Clear Calc Estimated GFR POC Glucose 178 H Random Glucose Lactic Acid Calcium Magnesium Total Bilirubin AST ALT Alkaline Phosphatase Troponin I High Sens B-Natriuretic Peptide Total Protein Albumin Lipase Urine Color Urine Appearance Urine pH Ur Specific [place] Urine Protein Urine Glucose (UA) Urine Ketones Urine Blood Urine Nitrite Ur Leukocyte Esterase Urine RBC Urine WBC Ur Squamous Epith Cells Amorphous Sediment Urine Bacteria Hyaline Casts Granular Casts Waxy Casts Stool Occult Blood NEG COVID-19 (JONATHON) COVID-19 Clin Com 03/28/20 03/28/20 03/29/20 22:32 22:32 01:13 MCV MCH MCHC RDW Plt Count MPV Immature Gran % (Auto) Neut % (Auto) Lymph % (Auto) Cecil % (Auto) Eos % (Auto) Baso % (Auto) Lymph # (Auto) [place] # (Auto) Eos # (Auto) Baso # (Auto) Abs Immat Gran (auto) Absolute Neuts (auto) Absolute Nucleated RBC Nucleated RBC % (auto) PT INR APTT Anion Gap Estim Creat Clear Calc Estimated GFR POC Glucose Random Glucose Lactic Acid 1.8 Calcium Magnesium 1.9 Total Bilirubin AST ALT Alkaline Phosphatase Troponin I High Sens 126.1 H D B-Natriuretic Peptide 938 H Total Protein Albumin Lipase Urine Color Urine Appearance Urine pH Ur Specific [place] Urine Protein Urine Glucose (UA) Urine Ketones Urine Blood Urine Nitrite Ur Leukocyte Esterase Urine RBC Urine WBC Ur Squamous Epith Cells Amorphous Sediment Urine Bacteria Hyaline Casts Granular Casts Waxy Casts Stool Occult Blood COVID-19 (JONATHON) COVID-19 Clin Com 03/29/20 03/29/20 03:23 04:15 MCV MCH MCHC RDW Plt Count MPV Immature Gran % (Auto) Neut % (Auto) Lymph % (Auto) Cecil % (Auto) Eos % (Auto) Baso % (Auto) Lymph # (Auto) Cecil # (Auto) Eos # (Auto) Baso # (Auto) Abs Immat Gran (auto) Absolute Neuts (auto) Absolute Nucleated RBC Nucleated RBC % (auto) PT INR APTT Anion Gap Estim Creat Clear Calc Estimated GFR POC Glucose Random Glucose Lactic Acid Calcium Magnesium Total Bilirubin AST ALT Alkaline Phosphatase Troponin I High Sens B-Natriuretic Peptide Total Protein Albumin Lipase Urine Color PIPPA Urine Appearance CLEAR Urine pH 6.5 Ur Specific [place] 1.020 Urine Protein 3+ H Urine Glucose (UA) 250 H Urine Ketones 5 Urine Blood 2+ H Urine Nitrite NEG Ur Leukocyte Esterase NEG Urine RBC 1-4 Urine WBC 1-4 Ur Squamous Epith Cells TRACE Amorphous Sediment 2+ Urine Bacteria TRACE Hyaline Casts 10-14 Granular Casts 5-9 Waxy Casts 1-4 Stool Occult Blood COVID-19 (JONATHON) Negative COVID-19 Clin Com See Note Imaging Radiologist's Impressions: Impressions Abdomen/Pelvis CT 03/28/20 23:39 IMPRESSION: 1. Possible short segment of colitis in the descending colon. 2. Pulmonary findings suspicious for mild interstitial edema. 3. Trace right pleural effusion. Small pericardial effusion. Chest CT 03/28/20 23:39 IMPRESSION: 1. Possible short segment of colitis in the descending colon. 2. Pulmonary findings suspicious for mild interstitial edema. 3. Trace right pleural effusion. Small pericardial effusion. Assessment and Plan (1) Colitis: Status: Acute Start with Zosyn as ordered for gram neg / anaerobic coverage Follow up Bcx as ordered Infectious disease consult in the am Gastroenterology consult in the am Unlikely ischemic colitis per physical exam findings and normal lactate. General surgery consult for evaluation requested (2) Hypertensive urgency: Status: Acute Hydralazine IV stat as well as nitro paste Continue with Home BP meds Carvedilol on hold given bradycardia of 40-50 bpm If BP not under control despite IV pushes then justa consider nitro drip (3) Congestive heart failure: Status: Acute Follow up 2d echo continue with lisinoprl home dose Hold carverdilol given bradycardia continue with isosorbide home dose continue with torsemide home dose continue with nifedipine home pena\ Cardiology consult in the am (4) Atrial fibrillation: Status: Acute continue with eliquis home dose Hold BB given bradycardia (5) Type 2 diabetes mellitus with unspecified complications: Problem details: conty same meds; 20 min reviewing chart, evaluating patient and documenting Status: Acute Insulin regimen as ordered (6) Chronic kidney disease: Qualifiers: Chronic kidney disease stage: unspecified stage Qualified Code(s): N18.9 - Chronic kidney disease, unspecified Status: Acute Creatinine at baseline at present monitor electrolytes closely (7) Hyperlipidemia: Status: Acute continue with statin home dose (8) CAD (coronary artery disease): Status: Acute continue with plavix home dose
[2020-03-29] MEDS: Nitroglycerin 2 % Oint 1 GM Packet 1 INCH TRANSDERMA (06:41)
[2020-03-29 06:48] LABS: Glucose, Whole Blood 132 mg/dL (60-115)
--- NOTE | 2020-03-29 06:52 | PC.NURSE ---
awaiting pharmacy to verify zosyn.
[2020-03-29 07:42] LABS: Glucose, Whole Blood 127 mg/dL (60-115)
--- NOTE | 2020-03-29 08:12 | PC.NURSE ---
PT LAYING ON STRETCHER, CALL [facility]NER IN PLACE. AWAITING ROOM ASSIGNMENT. IN NAD
[2020-03-29] MEDS: Piperacillin Sodium/Tazobactam 3.375 GM in 0.9 % Sodium Chloride 50 ML IV (08:13)
[2020-03-29] MEDS: Fluticasone/Vilanterol 200/25 BLST.W.DEV 1 PUFF INHALE (08:36)
--- NOTE | 2020-03-29 09:29 | P.CNGI_ITS ---
History of Present Illness Data of Consult Service Date: 03/29/20 Requesting physician: Wilfred Beltran Primary Care Provider: Yoandy Lund MD HPI Reason for consult: abdo pain 85 y/o male with a hx of HTN, CAD, DM, CHF, a-fib, MELQUIADES, CKD, renal art stenosis who I am asked to see for evaluation of abdominal pain. Patient noted burning diffuse abdominal pain but more concentrated in the umbilical area, 10/10 along with poor appetite, nausea and non bloody emesis last week, he went to the ED and had CT with diffuse colitis so was d/c'ed home with Levaquin and flagyl. Patient denied any chest pain, SOB, blood in stool or vomiting blood. He denies constipation or diarrhea. However sx persisted so he came back to the ED and then was admitted. Repeat CT with possible short segment descending colon colitis, perinephric stranding noted. He did admit to not passing urine all day yesterday and had straight cath done, after that pain is now gone and he feels back to [facility], denies prior problems with urination, no dysuria or urine hesitancy. Troponin noted to be 74.7 initially which increased to 126.1, BNP of 938. Cardiology was contacted and thought that most likely elevated troponin to be due to demand ischemia 2/2 hypertension. 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 Mother No problems noted. Surgical History Surgical History Hx of colonoscopy Social History Social History Alcohol intake: never Smoking Status: Never smoker Smoked in Last 30 Days: No Use of substances other than those prescribed or required for medical reasons: No Advance Directives: No Advance Directives Information Provided: No service: No Current occupational status: unemployed Meds Allergies Allergy/AdvReac Type Severity Reaction Status Date / Time No Known Allergies Allergy Verified 03/17/20 11:07 Home Medications Medication Instructions Recorded Confirmed Type albuterol sulfate 90 mcg/actuation 0 mcg INHALATION Q4-6H PRN 12/04/19 03/29/20 History aerosol inhaler alcohol swabs 0 pad TOPICAL CONT 12/04/19 03/29/20 History apixaban 2.5 mg tablet 2.5 mg PO BID 12/04/19 03/29/20 History blood sugar diagnostic #10 ea 12/04/19 03/17/20 History cholecalciferol (vitamin D3) 50 50 mcg PO DAILY 12/04/19 03/29/20 History mcg (2,000 unit) capsule clopidogrel 75 mg tablet 75 mg PO DAILY 12/04/19 03/29/20 History dextrose 40 % oral gel g PO PRN 12/04/19 03/17/20 History fluticasone 250 mcg-salmeterol 50 1 ea PO Q12H 12/04/19 03/29/20 History mcg/dose blistr powdr for inhalation glucose 4 gram chewable tablet 800f16 g PO PRN 12/04/19 03/17/20 History lancets 33 gauge #100 ea 12/04/19 03/17/20 History pen needle, diabetic 32 gauge x #50 ea 12/04/19 03/17/20 History 5/32 umeclidinium 62.5 mcg/actuation 1 inh INHALATION DAILY 12/04/19 03/29/20 History blister powder for inhalation insulin aspart U-100 100 unit/mL 8 unit SUBCUT BID ml 02/12/20 03/29/20 History (3 mL) subcutaneous pen insulin glargine 100 unit/mL (3 20 unit SUBCUT BEDTIME ml 02/12/20 03/29/20 History mL) subcutaneous pen famotidine 40 mg tablet 40 mg PO DAILY 03/10/20 03/29/20 History Physical Exam Vital Signs: Vital Signs: Last Vital Signs Temp 98.1 F 03/29/20 08:12 Pulse 55 03/29/20 08:40 Resp 15 03/29/20 08:12 BP 179/70 H 03/29/20 08:12 Pulse Ox 97 03/29/20 08:12 Body Mass Index 29.1 Const: General: cooperative, comfortable and no acute distress Orientation/consciousness: oriented to person, oriented to place and oriented to time HENMT: Head: Yes normal to inspection Eyes: General: appearance normal, both eyes and all related structures Neck: Neck: Yes normal visual inspection Chest: Chest palpation & inspection: normal inspection of the chest Resp: Effort & Inspection: normal respiratory effort Auscultation: clear to auscultation bilaterally Cardio: Jugular venous distension: no JVD Rate: regular rate Rhythm: regular rhythm Heart sounds: S1 normal heart sound present and S2 normal heart sound present GI: Inspection: Yes normal to inspection and No distended Palpation (GI): Soft to palpation and nontender Skin: General skin exam: no rashes or lesions noted Neuro: General: oriented to person, oriented to place and oriented to time Cognition (Neuro): normal cognition Extrem: General: Yes normal to inspection Results Labs CBC & Chem 7: 03/28/20 21:34 03/28/20 21:34 Labs: Short CBC 03/28/20 Range/Units 21:34 WBC 10.4 (4.8-10.8) X10*3/uL Hgb 13.6 L (14.0-18.0) g/dl Hct 38.6 L (42-52) % Plt Count 427 H (160-400) X10*3/uL BMP 03/28/20 21:34 Sodium 138 Potassium 3.9 Chloride 100 Carbon Dioxide 27 BUN 21 H Creatinine 1.97 H Calcium 8.4 Liver Function 03/28/20 Range/Units 21:34 Total Bilirubin 0.9 (0.0-1.0) mg/dL AST 20 (5-37) U/L ALT 11 (0-40) U/L Alkaline Phosphatase 121 H (39-117) U/L Albumin 3.1 L (3.5-5.0) g/dL Urine 03/29/20 Range/Units 03:23 Urine Color PIPPA Urine Appearance CLEAR Urine pH 6.5 (5.0-8.0) Ur Specific [place] 1.020 (1.005-1.025) Urine Protein 3+ H (NEG-TRACE) MG/DL Urine Glucose (UA) 250 H (NEG) MG/DL Imaging CT scan - abdomen: Radiologist's impression: EXAM: NONCONTRAST CT OF THE CHEST; NONCONTRAST CT OF THE ABDOMEN AND PELVIS INDICATION: Cough, persistent abdominal pain COMPARISON: 03/26/2020 TECHNIQUE: No IV contrast was utilized. Multidetector helical imaging was performed through the chest, abdomen, and pelvis. Coronal and sagittal reformatted images were created at the technologist workstation. DOSE LOWERING TECHNIQUES: This CT examination was performed using dose optimization techniques as appropriate, variously including the following: - Automated exposure control - Adjustment of mA and/or kV according to patient size (this includes techniques or standardized protocols for targeted exams were dose is matched to indication/reason for exam; i.e. extremities or head) - Use of iterative reconstruction technique DLP: 1110 mGy-cm FINDINGS: Chest: Detailed evaluation of the lung parenchyma is limited due to respiratory motion artifact. No dense consolidation bilaterally. There is mild interlobular septal thickening suspicious for mild interstitial edema. Trace right pleural effusion is present. No pneumothorax. The visualized thyroid gland is unremarkable. There are subcentimeter mediastinal lymph nodes within the range of normal variation. There is cardiomegaly with a small pericardial effusion. Coronary artery calcifications are present. Scattered atherosclerotic calcifications are present. No axillary lymphadenopathy is present. There are changes of diffuse idiopathic skeletal hyperostosis in the thoracic spine. Abdomen/Pelvis: The liver is homogeneous in attenuation without intrahepatic biliary ductal dilatation. The gallbladder is unremarkable. The unenhanced spleen, pancreas, and adrenal glands are within normal limits. Redemonstrated bilateral perinephric stranding. No hydronephrosis. Redemonstrated right renal cyst. No renal or ureteral calculi are present. The urinary bladder is unremarkable. The prostate and seminal vesicles are unremarkable. There is a questionable short segment of colonic wall thickening in the descending colon of the left abdomen, suboptimally assessed due to incomplete distention; this could reflect a colitis in the proper clinical setting. No evidence of bowel obstruction. There is sigmoid colon diverticulosis without convincing diverticulitis. No free fluid or free air is present. There is moderate atherosclerotic calcification. No retroperitoneal or pelvic lymphadenopathy is seen. There are scattered degenerative changes of the lumbar spine. CT/CT abdomen pelvis wo con IMPRESSION: 1. Possible short segment of colitis in the descending colon. 2. Pulmonary findings suspicious for mild interstitial edema. 3. Trace right pleural effusion. Small pericardial effusion. Assessment and Plan (1) Acute retention of urine: Status: Acute (2) Periumbilical abdominal pain: Status: Acute (3) Colitis: Status: Acute 1/ Acute urine retention with abdominal pain, now appears to be resolved after straight cath, ?2/2 bladder outlet obstruction from enlarged prostate, tumours, stricture etc 2/ Suspected colitis, had been on ABX for last few days, dont; think this is an active issue right now Plan: 1/ complete abx treatment for 7 d 2/ check PSA< consider urology consult 3/ He probably does need a colonoscopy to assess colon given colitis and r/o concomitant mass, but I ran into Dr Gill who did confirm the patient was a high cardiac risk due to his vascular issues, better to hold. Initially has planned to perform endoscopy in 6 weeks but will hold till he f/u with cardiology after d/c. other option could include virtual CT colonography and ba enema, will hold on this for the meantime.
--- NOTE | 2020-03-29 09:49 | P.CONGS_ITS ---
History of Present Illness Consult details Consult date: 03/29/20 Narrative: Kel Gonzalez is an 85-year-old male patient presenting to the emergency department with persistent abdominal pain. He was previously evaluated in the emergency department for similar complaints 2 days prior and found on CT to have a colitis involving the descending colon. He was discharged home on Levaquin and Flagyl. He returned yesterday evening because of persistent abdominal pain. Evaluation in the emergency department also revealed a markedly elevated blood pressure which is currently being managed by the hospitalist team. A repeat CT of the abdomen and pelvis again shows an area of colitis involving a smaller area of the descending colon compared to 2 days prior. Patient today reports decreased abdominal pain compared to yesterday and denies nausea or vomiting. Review of Systems Review of Systems: Yes all other systems are reviewed and are negative Constitutional: Constitutional: Reports anorexia, Reports body ache(s), Reports difficulty sleeping, Reports poor appetite and Reports weight loss (30 lb) Cardiovascular: Cardiovascular: Denies chest pain and Reports irregular heart rhythm Respiratory: Respiratory: Denies cough, Denies hemoptysis, Denies stridor and Denies wheezing Gastrointestinal: Gastrointestinal: Reports abdominal pain, Reports bloating, Denies hematochezia, Denies vomiting and Denies hematemesis Musculoskeletal: Musculoskeletal: Reports no additional musculoskeletal complaints Allergic/Immunologic: Allergic/Immunologic: Denies wheezing PMFSH Past Medical History Medical History Abdominal pain Anemia 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 Mother No problems noted. Surgical History Surgical History Hx of colonoscopy Social History Social History Alcohol intake: never Smoking Status: Never smoker Smoked in Last 30 Days: No Use of substances other than those prescribed or required for medical reasons: No Advance Directives: No Advance Directives Information Provided: No Meds Allergies Allergy/AdvReac Type Severity Reaction Status Date / Time No Known Allergies Allergy Verified 03/17/20 11:07 Home Medications Medication Instructions Recorded Confirmed Type albuterol sulfate 90 mcg/actuation 0 mcg INHALATION Q4-6H PRN 12/04/19 03/29/20 History aerosol inhaler alcohol swabs 0 pad TOPICAL CONT 12/04/19 03/29/20 History apixaban 2.5 mg tablet 2.5 mg PO BID 12/04/19 03/29/20 History blood sugar diagnostic #10 ea 12/04/19 03/17/20 History cholecalciferol (vitamin D3) 50 50 mcg PO DAILY 12/04/19 03/29/20 History mcg (2,000 unit) capsule clopidogrel 75 mg tablet 75 mg PO DAILY 12/04/19 03/29/20 History dextrose 40 % oral gel g PO PRN 12/04/19 03/17/20 History fluticasone 250 mcg-salmeterol 50 1 ea PO Q12H 12/04/19 03/29/20 History mcg/dose blistr powdr for inhalation glucose 4 gram chewable tablet 800f16 g PO PRN 12/04/19 03/17/20 History lancets 33 gauge #100 ea 12/04/19 03/17/20 History pen needle, diabetic 32 gauge x #50 ea 12/04/19 03/17/20 History /32 umeclidinium 62.5 mcg/actuation 1 inh INHALATION DAILY 12/04/19 03/29/20 History blister powder for inhalation insulin aspart U-100 100 unit/mL 8 unit SUBCUT BID ml 02/12/20 03/29/20 History (3 mL) subcutaneous pen insulin glargine 100 unit/mL (3 20 unit SUBCUT BEDTIME ml 02/12/20 03/29/20 History mL) subcutaneous pen famotidine 40 mg tablet 40 mg PO DAILY 03/10/20 03/29/20 History Physical Exam Vital Signs: Vital Signs: Last Vital Signs Temp 98.1 F 03/29/20 08:12 Pulse 55 03/29/20 08:40 Resp 15 03/29/20 08:12 BP 179/70 H 03/29/20 08:12 Pulse Ox 97 03/29/20 08:12 Body Mass Index 29.1 Const: General: cooperative, comfortable, no acute distress and alert Resp: Effort & Inspection: normal respiratory effort, no cough, no stridor and not tachypneic GI: Inspection: Yes normal to inspection Palpation (GI): Soft to palpation and nontender Percussion: Yes normal to percussion Auscultation: normal bowel sounds Skin: General skin exam: dry skin Rashes: no rashes Results Labs Result diagrams: 03/28/20 21:34 03/28/20 21:34 Labs: Abnormal lab results 03/28/20 03/28/20 03/28/20 Range/Units 21:34 21:34 21:34 RBC 4.13 L (4.60-5.80) X10*6/uL Hgb 13.6 L (14.0-18.0) g/dl Hct 38.6 L (42-52) % Plt Count 427 H (160-400) X10*3/uL Neut % (Auto) 79.3 H (45-73) % Lymph % (Auto) 10.1 L (20-40) % Lymph # (Auto) 1.1 L (1.2-4.9) X10*3/uL PT (10.8-13.0) SEC INR (0.9-1.1) APTT (24.1-38.0) SEC BUN 21 H (9-16) mg/dL Creatinine 1.97 H (0.5-1.4) mg/dL POC Glucose (60-115) mg/dL Random Glucose 160 H (60-115) mg/dL Alkaline Phosphatase 121 H (39-117) U/L Troponin I High Sens 74.7 H D (<3.5-35.0) ng/L B-Natriuretic Peptide (<100) pg/mL Total Protein 5.3 L (6.5-8.0) g/dL Albumin 3.1 L (3.5-5.0) g/dL Urine Protein (NEG-TRACE) MG/DL Urine Glucose (UA) (NEG) MG/DL Urine Blood (NEG) 03/28/20 03/28/20 03/29/20 Range/Units 22:20 22:32 01:13 RBC (4.60-5.80) X10*6/uL Hgb (14.0-18.0) g/dl Hct (42-52) % Plt Count (160-400) X10*3/uL Neut % (Auto) (45-73) % Lymph % (Auto) (20-40) % Lymph # (Auto) (1.2-4.9) X10*3/uL PT 15.1 H (10.8-13.0) SEC INR 1.3 H (0.9-1.1) APTT 45.2 H D (24.1-38.0) SEC BUN (9-16) mg/dL Creatinine (0.5-1.4) mg/dL POC Glucose 178 H (60-115) mg/dL Random Glucose (60-115) mg/dL Alkaline Phosphatase (39-117) U/L Troponin I High Sens 126.1 H D (<3.5-35.0) ng/L B-Natriuretic Peptide 938 H (<100) pg/mL Total Protein (6.5-8.0) g/dL Albumin (3.5-5.0) g/dL Urine Protein (NEG-TRACE) MG/DL Urine Glucose (UA) (NEG) MG/DL Urine Blood (NEG) 03/29/20 03/29/20 03/29/20 Range/Units 03:23 06:40 07:38 RBC (4.60-5.80) X10*6/uL Hgb (14.0-18.0) g/dl Hct (42-52) % Plt Count (160-400) X10*3/uL Neut % (Auto) (45-73) % Lymph % (Auto) (20-40) % Lymph # (Auto) (1.2-4.9) X10*3/uL PT (10.8-13.0) SEC INR (0.9-1.1) APTT (24.1-38.0) SEC BUN (9-16) mg/dL Creatinine (0.5-1.4) mg/dL POC Glucose 132 H 127 H (60-115) mg/dL Random Glucose (60-115) mg/dL Alkaline Phosphatase (39-117) U/L Troponin I High Sens (<3.5-35.0) ng/L B-Natriuretic Peptide (<100) pg/mL Total Protein (6.5-8.0) g/dL Albumin (3.5-5.0) g/dL Urine Protein 3+ H (NEG-TRACE) MG/DL Urine Glucose (UA) 250 H (NEG) MG/DL Urine Blood 2+ H (NEG) Short CBC 03/28/20 Range/Units 21:34 WBC 10.4 (4.8-10.8) X10*3/uL Hgb 13.6 L (14.0-18.0) g/dl Hct 38.6 L (42-52) % Plt Count 427 H (160-400) X10*3/uL BMP 03/28/20 21:34 Sodium 138 Potassium 3.9 Chloride 100 Carbon Dioxide 27 BUN 21 H Creatinine 1.97 H Calcium 8.4 Liver Function 03/28/20 Range/Units 21:34 Total Bilirubin 0.9 (0.0-1.0) mg/dL AST 20 (5-37) U/L ALT 11 (0-40) U/L Alkaline Phosphatase 121 H (39-117) U/L Albumin 3.1 L (3.5-5.0) g/dL Urine 03/29/20 Range/Units 03:23 Urine Color PIPPA Urine Appearance CLEAR Urine pH 6.5 (5.0-8.0) Ur Specific [place] 1.020 (1.005-1.025) Urine Protein 3+ H (NEG-TRACE) MG/DL Urine Glucose (UA) 250 H (NEG) MG/DL All other labs normal. Assessment and Plan (1) Colitis: Status: Acute 85-year-old male patient presenting with complaints of abdominal pain found several days ago to have an area of colitis involving the descending colon. He was subsequently discharged home on oral antibiotics but continued to have abdominal pain therefore he return to the emergency department last evening . Workup today reveals a normal WBC and CT actually appears to be improved with a smaller area involved in the bowel wall thickening at approximately the junction of the descending colon and sigmoid colon. There is no evidence of free air or fluid on CT. Abdominal examination this morning reveals his abdomen to be soft and nondistended with no tenderness to deep palpation. There are no peritoneal signs. I will follow along during this hospitalization but at this time no surgical intervention is recommended. (2) Abdominal pain: Status: Acute
[2020-03-29] MEDS: Cholecalciferol (Vitamin D3) 25 MCG TABLET 50 MCG PO (11:10)
[2020-03-29] MEDS: Torsemide 20 MG TABLET 40 MG PO (11:10)
[2020-03-29] MEDS: Isosorbide Mononitrate 60 MG TAB.ER.24H 120 MG PO (11:11)
[2020-03-29] MEDS: Famotidine 20 MG TABLET 40 MG PO (11:11)
[2020-03-29] MEDS: NIFEdipine ER 30 MG TAB.ER.24 90 MG PO (11:11)
[2020-03-29] MEDS: carvediloL 3.125 MG TABLET PO ×2 (11:12→20:36)
[2020-03-29] MEDS: Atorvastatin Calcium 80 MG TABLET PO (11:12)
[2020-03-29] MEDS: Clopidogrel Bisulfate 75 MG TABLET PO (11:13)
[2020-03-29] MEDS: Apixaban 2.5 MG TABLET PO ×2 (11:13→20:46)
--- NOTE | 2020-03-29 12:08 | P.CONCA_ITS ---
History of Present Illness History of Present Illness Date of Service: 03/29/20 Requesting physician: Krista Yañez Chief complaint: Colitis/Hypertensive Urgency Narrative: 85-year-old gentleman who is my clinic patient and has known multivessel coronary artery disease and ischemic cardiomyopathy with EF 35-40%. He was recently seen in the office and was doing well. His blood pressure was elevated and his nifedipine was increased from 30 mg to 60 mg. He recently had an episode of colitis and was being assessed for EGD/colonoscopy. He saw my partner Dr. Bonilla and was thought to be high risk for any procedures. Subsequent to that I saw him and I felt that he is high risk given on revascularize multivessel disease. He has slowed down during coronavirus infection and does not do much activities. He has been more deconditioned than before. He is now presenting for abdominal pain. His CT scan has shown evidence of colitis again. He has known atrial fibrillation and has been on anticoagulation. It appears he could not pass urine and reportedly had straight cath performed which improved his abdominal pain. His abdomen is completely benign right now. His blood pressure was elevated in the setting of severe abdominal pain which has improved at this point and his blood pressure is coming down. 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 Mother No problems noted. Surgical History Surgical History Hx of colonoscopy Social History Social History Alcohol intake: never Smoking Status: Never smoker Smoked in Last 30 Days: No Use of substances other than those prescribed or required for medical reasons: No Advance Directives: No Advance Directives Information Provided: No Meds Allergies Allergy/AdvReac Type Severity Reaction Status Date / Time No Known Allergies Allergy Verified 03/17/20 11:07 Home Medications Medication Instructions Recorded Confirmed Type albuterol sulfate 90 mcg/actuation 0 mcg INHALATION Q4-6H PRN 12/04/19 03/29/20 History aerosol inhaler alcohol swabs 0 pad TOPICAL CONT 12/04/19 03/29/20 History apixaban 2.5 mg tablet 2.5 mg PO BID 12/04/19 03/29/20 History blood sugar diagnostic #10 ea 12/04/19 03/17/20 History cholecalciferol (vitamin D3) 50 50 mcg PO DAILY 12/04/19 03/29/20 History mcg (2,000 unit) capsule clopidogrel 75 mg tablet 75 mg PO DAILY 12/04/19 03/29/20 History dextrose 40 % oral gel g PO PRN 12/04/19 03/17/20 History fluticasone 250 mcg-salmeterol 50 1 ea PO Q12H 12/04/19 03/29/20 History mcg/dose blistr powdr for inhalation glucose 4 gram chewable tablet 800f16 g PO PRN 12/04/19 03/17/20 History lancets 33 gauge #100 ea 12/04/19 03/17/20 History pen needle, diabetic 32 gauge x #50 ea 12/04/19 03/17/20 History 5/32 umeclidinium 62.5 mcg/actuation 1 inh INHALATION DAILY 12/04/19 03/29/20 History blister powder for inhalation insulin aspart U-100 100 unit/mL 8 unit SUBCUT BID ml 02/12/20 03/29/20 History (3 mL) subcutaneous pen insulin glargine 100 unit/mL (3 20 unit SUBCUT BEDTIME ml 02/12/20 03/29/20 History mL) subcutaneous pen famotidine 40 mg tablet 40 mg PO DAILY 03/10/20 03/29/20 History Physical Exam Vital Signs: Vital Signs: Last Vital Signs Temp 98.1 F 03/29/20 08:12 Pulse 61 03/29/20 11:13 Resp 15 03/29/20 08:12 BP 171/70 H 03/29/20 11:13 Pulse Ox 97 03/29/20 08:12 Body Mass Index 29.1 GENERAL APPEARANCE: in no acute distress, frail. HEENT: unremarkable. HEAD: normocephalic, atraumatic. NECK/THYROID: no carotid bruit, no jugular venous distention. SKIN: no suspicious lesions, warm and dry. HEART: Systolic murmur aortic area with preserved 2nd heart sound, bradycardia. LUNGS: clear to auscultation bilaterally. ABDOMEN: normal, bowel sounds present, soft, nontender, nondistended. EXTREMITIES: no clubbing, cyanosis, or edema. PERIPHERAL PULSES: equal. NEUROLOGIC: nonfocal, alert and oriented. PSYCH: mood/affect full range. Results Labs and Meds Result diagrams: 03/28/20 21:34 03/28/20 21:34 Lab results: Laboratory Results - last 24 hr 03/28/20 03/28/20 03/28/20 21:34 21:34 21:34 WBC 10.4 RBC 4.13 L Hgb 13.6 L Hct 38.6 L MCV 93.5 MCH 32.9 MCHC 35.2 RDW 12.1 Plt Count 427 H MPV 10.5 Immature Gran % (Auto) 0.3 Neut % (Auto) 79.3 H Lymph % (Auto) 10.1 L [place] % (Auto) 9.2 Eos % (Auto) 0.9 Baso % (Auto) 0.2 Lymph # (Auto) 1.1 L [place] # (Auto) 1.0 Eos # (Auto) 0.1 Baso # (Auto) 0.0 Abs Immat Gran (auto) 0.03 Absolute Neuts (auto) 8.3 Absolute Nucleated RBC 0.000 Nucleated RBC % (auto) 0.0 PT INR APTT Sodium 138 Potassium 3.9 Chloride 100 Carbon Dioxide 27 Anion Gap 15 BUN 21 H Creatinine 1.97 H Estim Creat Clear Calc 29.4 Estimated GFR 33 POC Glucose Random Glucose 160 H Lactic Acid Calcium 8.4 Magnesium Total Bilirubin 0.9 AST 20 ALT 11 Alkaline Phosphatase 121 H Troponin I High Sens 74.7 H D B-Natriuretic Peptide Total Protein 5.3 L Albumin 3.1 L Lipase 18 Urine Color Urine Appearance Urine pH Ur Specific [place] Urine Protein Urine Glucose (UA) Urine Ketones Urine Blood Urine Nitrite Ur Leukocyte Esterase Urine RBC Urine WBC Ur Squamous Epith Cells Amorphous Sediment Urine Bacteria Hyaline Casts Granular Casts Waxy Casts Stool Occult Blood COVID-19 (JONATHON) COVID-19 Clin Com 03/28/20 03/28/20 03/28/20 22:20 22:24 22:32 WBC RBC Hgb Hct MCV MCH MCHC RDW Plt Count MPV Immature Gran % (Auto) Neut % (Auto) Lymph % (Auto) [place] % (Auto) Eos % (Auto) Baso % (Auto) Lymph # (Auto) [place] # (Auto) Eos # (Auto) Baso # (Auto) Abs Immat Gran (auto) Absolute Neuts (auto) Absolute Nucleated RBC Nucleated RBC % (auto) PT 15.1 H INR 1.3 H APTT 45.2 H D Sodium Potassium Chloride Carbon Dioxide Anion Gap BUN Creatinine Estim Creat Clear Calc Estimated GFR POC Glucose 178 H Random Glucose Lactic Acid Calcium Magnesium Total Bilirubin AST ALT Alkaline Phosphatase Troponin I High Sens B-Natriuretic Peptide Total Protein Albumin Lipase Urine Color Urine Appearance Urine pH Ur Specific [place] Urine Protein Urine Glucose (UA) Urine Ketones Urine Blood Urine Nitrite Ur Leukocyte Esterase Urine RBC Urine WBC Ur Squamous Epith Cells Amorphous Sediment Urine Bacteria Hyaline Casts Granular Casts Waxy Casts Stool Occult Blood NEG COVID-19 (JONATHON) COVID-[employer] 03/28/20 03/28/20 03/29/20 22:32 22:32 01:13 WBC RBC Hgb Hct MCV MCH MCHC RDW Plt Count MPV Immature Gran % (Auto) Neut % (Auto) Lymph % (Auto) [place] % (Auto) Eos % (Auto) Baso % (Auto) Lymph # (Auto) [place] # (Auto) Eos # (Auto) Baso # (Auto) Abs Immat Gran (auto) Absolute Neuts (auto) Absolute Nucleated RBC Nucleated RBC % (auto) PT INR APTT Sodium Potassium Chloride Carbon Dioxide Anion Gap BUN Creatinine Estim Creat Clear Calc Estimated GFR POC Glucose Random Glucose Lactic Acid 1.8 Calcium Magnesium 1.9 Total Bilirubin AST ALT Alkaline Phosphatase Troponin I High Sens 126.1 H D B-Natriuretic Peptide 938 H Total Protein Albumin Lipase Urine Color Urine Appearance Urine pH Ur Specific [place] Urine Protein Urine Glucose (UA) Urine Ketones Urine Blood Urine Nitrite Ur Leukocyte Esterase Urine RBC Urine WBC Ur Squamous Epith Cells Amorphous Sediment Urine Bacteria Hyaline Casts Granular Casts Waxy Casts Stool Occult Blood COVID-19 (JONATHON) COVID-19 [employer] 03/29/20 03/29/20 03/29/20 03:23 04:15 06:40 WBC RBC Hgb Hct MCV MCH MCHC RDW Plt Count MPV Immature Gran % (Auto) Neut % (Auto) Lymph % (Auto) [place] % (Auto) Eos % (Auto) Baso % (Auto) Lymph # (Auto) [place] # (Auto) Eos # (Auto) Baso # (Auto) Abs Immat Gran (auto) Absolute Neuts (auto) Absolute Nucleated RBC Nucleated RBC % (auto) PT INR APTT Sodium Potassium Chloride Carbon Dioxide Anion Gap BUN Creatinine Estim Creat Clear Calc Estimated GFR POC Glucose 132 H Random Glucose Lactic Acid Calcium Magnesium Total Bilirubin AST ALT Alkaline Phosphatase Troponin I High Sens B-Natriuretic Peptide Total Protein Albumin Lipase Urine Color PIPPA Urine Appearance CLEAR Urine pH 6.5 Ur Specific [place] 1.020 Urine Protein 3+ H Urine Glucose (UA) 250 H Urine Ketones 5 Urine Blood 2+ H Urine Nitrite NEG Ur Leukocyte Esterase NEG Urine RBC 1-4 Urine WBC 1-4 Ur Squamous Epith Cells TRACE Amorphous Sediment 2+ Urine Bacteria TRACE Hyaline Casts 10-14 Granular Casts 5-9 Waxy Casts 1-4 Stool Occult Blood COVID-19 (JONATHON) Negative COVID-19 Clin Com See Note 03/29/20 07:38 WBC RBC Hgb Hct MCV MCH MCHC RDW Plt Count MPV Immature Gran % (Auto) Neut % (Auto) Lymph % (Auto) [place] % (Auto) Eos % (Auto) Baso % (Auto) Lymph # (Auto) [place] # (Auto) Eos # (Auto) Baso # (Auto) Abs Immat Gran (auto) Absolute Neuts (auto) Absolute Nucleated RBC Nucleated RBC % (auto) PT INR APTT Sodium Potassium Chloride Carbon Dioxide Anion Gap BUN Creatinine Estim Creat Clear Calc Estimated GFR POC Glucose 127 H Random Glucose Lactic Acid Calcium Magnesium Total Bilirubin AST ALT Alkaline Phosphatase Troponin I High Sens B-Natriuretic Peptide Total Protein Albumin Lipase Urine Color Urine Appearance Urine pH Ur Specific [place] Urine Protein Urine Glucose (UA) Urine Ketones Urine Blood Urine Nitrite Ur Leukocyte Esterase Urine RBC Urine WBC Ur Squamous Epith Cells Amorphous Sediment Urine Bacteria Hyaline Casts Granular Casts Waxy Casts Stool Occult Blood COVID-19 (JONATHON) COVID-19 Clin Com Imaging Radiologist's impression: Impressions Abdomen/Pelvis CT 03/28/20 23:39 IMPRESSION: 1. Possible short segment of colitis in the descending colon. 2. Pulmonary findings suspicious for mild interstitial edema. 3. Trace right pleural effusion. Small pericardial effusion. Chest CT 03/28/20 23:39 IMPRESSION: 1. Possible short segment of colitis in the descending colon. 2. Pulmonary findings suspicious for mild interstitial edema. 3. Trace right pleural effusion. Small pericardial effusion. Assessment and Plan (1) CAD (coronary artery disease): Status: Acute (2) Hypertensive urgency: Status: Acute (3) Colitis: Status: Acute (4) Persistent atrial fibrillation: Status: Acute Pleasant 85-year-old gentleman who is presenting with abdominal pain. His CT scan showing evidence of colitis again. His symptoms have impr keysha at this point. He had some reported urinary retention also. CT scan did not show any urinary bladder distension. In any case he is asymptomatic now. His blood pressure was elevated when he has severe pain but it is improving. I think his home medications can be resumed. He has chronic bradycardia and his heart rate usually is in 40s to 50s. I think his carvedilol also can be resumed. In terms of further workup he is being seen by Gastroenterology. I think he is high risk for procedures given significant multivessel disease and ischemic cardiomyopathy. He has slowed down and is deconditioned also. His nifedipine was increased [place] [address] Yañez. I think we can monitor his blood pressure and adjust medications further. He is on anticoagulation with Eliquis. He is on Plavix for multivessel disease and non ST elevation [place] last year. If no anemia or obvious GI bleeding I would continue the anticoagulation and antiplatelet therapy for now. We will follow along with you. Thank you for allowing me to participate in the care of your patient. Please feel free to contact me if you have any questions.
--- NOTE | 2020-03-29 12:40 | MHC.CM.PN ---
IMM 03/29/20, EMR reviewed and CM met with pt via police dispatcher, pt is alert and oriented and reports he lives with and son, pt reports son does all cooking, cleaning and assist's pt with personal care/ADL's and organizes pts medication. Pt reports his son Kel is his HCP, CM will look for copy on file, pt unsure where copy is. PCP Yoandy Lund and pharmacy is [facility]. Discharge Plan: Home w/family vs Home w/[facility] services.
--- NOTE | 2020-03-29 13:21 | PC.NURSE ---
kitchen called to change to low sodium diet to obtain a tray
--- NOTE | 2020-03-29 13:34 | PC.NURSE ---
patient a&o, speck dyer intact, vss, pts diet changed from npo to low sodium, poc obtained, will continue to monitor.
[2020-03-29 13:41] LABS: Glucose, Whole Blood 127 mg/dL (60-115)
[2020-03-29] MEDS: Piperacillin Sodium/Tazobactam 2.25 GM in 0.9 % Sodium Chloride 50 ML IV ×2 (15:14→20:40)
[2020-03-29] MEDS: 0.9 % Sodium Chloride Flush 3 ML SYRINGE IVFLUSH (16:07)
--- NOTE | 2020-03-29 16:18 | PC.NURSE ---
UROLOGIST DR. FELIZ NOTIFIED OF CONSULT ORDER BY THIS US THROUGH TIGERTEXT @[phone]
[2020-03-29 18:20] LABS: Glucose, Whole Blood 143 mg/dL (60-115)
--- NOTE | 2020-03-29 18:33 | PC.NURSE ---
patients blood sugar 143, pt refusing dinner only drinking liquids, notified dr. gupta via tiger text- 8u insulin held per provider. will encourage patient to continue taking liquids po.
[2020-03-29 20:15] LABS: Glucose, Whole Blood 174 mg/dL (60-115)
--- NOTE | 2020-03-29 20:26 | PC.NURSE ---
patients most recent poc was 174, notified dr. mariano that the patient is refusing food and only taking liquid po in small amounts, dr. leblanc requested the pm dose of humalog sliding scale and lantus be held.
--- NOTE | 2020-03-29 20:49 | PC.NURSE ---
pt medicated per order, pt calm./compliant, watching tv, pt refusing po intake other than gingerale, will continue to monitor.
--- NOTE | 2020-03-29 23:19 | PC.NURSE ---
Pt resting in bed at this time. Breathing equal and unlabored. Denies abd pain or nausea at this time. Remains on school bus monitor, with rate 58-60 bpm. Call hidalgo within reach, will continue to monitor.
[2020-03-30] VITALS (12 sets, daily range): BP systolic 135–186; BP diastolic 62–84; PULSE 53–62; RESP 16–20; TEMP 36.5–37.1; O2SAT 91–96
[2020-03-30] MEDS: 0.9 % Sodium Chloride Flush 3 ML SYRINGE IVFLUSH ×4 (00:27→22:04)
[2020-03-30] MEDS: Piperacillin Sodium/Tazobactam 2.25 GM in 0.9 % Sodium Chloride 50 ML IV ×4 (04:08→22:03)
--- NOTE | 2020-03-30 06:31 | PC.NURSE ---
Phlebotomy to bedside at this time for AM lab draw
[2020-03-30 06:53] LABS: Basophils Percent Auto 0.4 % (0-2); Eosinophils Absolute Auto 0.5 X10*3/uL (0.0-0.4); Hemoglobin 11.8 g/dl (14.0-18.0); Imm Gran Abs Auto 0.02 X10*3/uL (0.00-0.03); Imm Gran Pct Auto 0.2 % (0.0-0.4); Lymphocytes Absolute Auto 1.4 X10*3/uL (1.2-4.9); Lymphocytes Percent Auto 14.7 % (20-40); MANUAL DIFF FLAG NO; Mean Corpuscular HGB Conc 34.7 g/dl (31.0-36.0); Mean Corpuscular Hemoglobin 32.2 pg (27.0-33.0); Mean Corpuscular Volume 92.6 fL (80-98); Mean Platelet Volume 10.8 fL (9.4-12.4); Monocytes Percent Auto 10.5 % (2-11); Neutrophils Absolute Auto 6.5 X10*3/uL (2.0-8.3); Neutrophils Percent Auto 69.2 % (45-73); Platelet Count 397 X10*3/uL (160-400); Red Blood Count 3.67 X10*6/uL (4.60-5.80); White Blood Count 9.4 X10*3/uL (4.8-10.8)
[2020-03-30 07:24] LABS: Anion Gap 11 (12-20); Blood Urea Nitrogen 28 mg/dL (9-16); Calcium 7.7 mg/dL (8.4-10.2); Carbon Dioxide 28 mmol/L (22-29); Chloride 103 mmol/L (96-108); Creatinine Clr Calc Pharmacy 24.7; Estimated Glomerular Filt Rate 27; Glucose Random 120 mg/dL (60-115); Potassium 3.8 mmol/L (3.3-5.1); Sodium 138 mmol/L (135-145)
[2020-03-30 07:56] LABS: Glucose, Whole Blood 183 mg/dL (60-115)
[2020-03-30] MEDS: NIFEdipine ER 30 MG TAB.ER.24 90 MG PO (08:25)
[2020-03-30] MEDS: Famotidine 20 MG TABLET 40 MG PO (08:25)
[2020-03-30] MEDS: Cholecalciferol (Vitamin D3) 25 MCG TABLET 50 MCG PO (08:26)
[2020-03-30] MEDS: Isosorbide Mononitrate 60 MG TAB.ER.24H 120 MG PO (08:26)
[2020-03-30] MEDS: Atorvastatin Calcium 80 MG TABLET PO (08:26)
[2020-03-30] MEDS: Clopidogrel Bisulfate 75 MG TABLET PO (08:27)
[2020-03-30] MEDS: Apixaban 2.5 MG TABLET PO ×2 (08:27→20:22)
[2020-03-30] MEDS: carvediloL 3.125 MG TABLET PO (08:27)
[2020-03-30] MEDS: Torsemide 20 MG TABLET 40 MG PO (08:29)
[2020-03-30] MEDS: Fluticasone/Vilanterol 200/25 BLST.W.DEV 1 PUFF INHALE (08:34)
--- NOTE | 2020-03-30 10:48 | PM.PNCARD ---
Subjective Subjective Date of Service: 03/30/20 Principal diagnosis: Hypertension, ischemic cardiomyopathy, coronary artery disease. Interval history: Patient denies any cardiac complaints. Denies chest pain or shortness of breath. Lying comfortably in bed. Complains that he is sad. Denies abdominal discomfort. Blood pressure remains significantly elevated Review of Systems Constitutional: Denies chills, Denies fever(s) and Reports malaise Cardiovascular: Reports no additional cardiovascular complaints Respiratory: Reports no additional respiratory complaints Gastrointestinal: Reports no additional gastrointestinal complaints Psychiatric: Reports other (Feels had) Endocrine: Reports no additional endocrine complaints Hematologic/Lymphatic: Reports no additional hematologic/lymphatic complaints Physical Exam Vital Signs: Last Vital Signs Temp 97.7 F 03/30/20 08:00 Pulse 59 03/30/20 08:35 Resp 18 03/30/20 08:00 BP 186/84 H 03/30/20 08:27 Pulse Ox 95 03/30/20 08:00 Body Mass Index 29.1 Const General: cooperative, comfortable, no acute distress, alert and awake Nutritional Appearance: overweight Orientation/consciousness: patient oriented x3 HENMT Head: Yes normocephalic and Yes atraumatic Neck Neck: Yes trachea midline, Yes supple and Yes no JVD Resp Effort & Inspection: normal respiratory effort Auscultation: clear to auscultation bilaterally Cardio Jugular venous distension: no JVD Rate: regular rate Rhythm: regular rhythm Heart sounds: S1 normal heart sound present and S2 normal heart sound present GI Auscultation: normal bowel sounds Neuro General: patient oriented x3 and no focal motor deficits Extrem General: Yes no clubbing, cyanosis or edema Results Labs and Meds Result diagrams: 03/30/20 06:29 03/30/20 06:29 Lab results: Laboratory Results - last 24 hr 03/29/20 03/29/20 03/29/20 13:36 18:14 20:12 WBC RBC Hgb Hct MCV MCH MCHC RDW Plt Count MPV Immature Gran % (Auto) Neut % (Auto) Lymph % (Auto) [place] % (Auto) Eos % (Auto) Baso % (Auto) Lymph # (Auto) [place] # (Auto) Eos # (Auto) Baso # (Auto) Abs Immat Gran (auto) Absolute Neuts (auto) Absolute Nucleated RBC Nucleated RBC % (auto) Sodium Potassium Chloride Carbon Dioxide Anion Gap BUN Creatinine Estim Creat Clear Calc Estimated GFR POC Glucose 127 H 143 H 174 H Random Glucose Calcium 03/30/20 03/30/20 03/30/20 06:29 06:29 07:52 WBC 9.4 RBC 3.67 L Hgb 11.8 L Hct 34.0 L MCV 92.6 MCH 32.2 MCHC 34.7 RDW 12.0 Plt Count 397 MPV 10.8 Immature Gran % (Auto) 0.2 Neut % (Auto) 69.2 Lymph % (Auto) 14.7 L [place] % (Auto) 10.5 Eos % (Auto) 5.0 H Baso % (Auto) 0.4 Lymph # (Auto) 1.4 [place] # (Auto) 1.0 Eos # (Auto) 0.5 H Baso # (Auto) 0.0 Abs Immat Gran (auto) 0.02 Absolute Neuts (auto) 6.5 Absolute Nucleated RBC 0.000 Nucleated RBC % (auto) 0.0 Sodium 138 Potassium 3.8 Chloride 103 Carbon Dioxide 28 Anion Gap 11 L BUN 28 H Creatinine 2.35 H Estim Creat Clear Calc 24.7 Estimated GFR 27 POC Glucose 183 H Random Glucose 120 H Calcium 7.7 L D Progress Note: A&P Assessment and plan (1) CAD (coronary artery disease): Status: Acute Assessment and Plan: No multivessel coronary artery disease. Elevated troponin related to Lenny I as well as underlying coronary artery disease in the setting of ischemic cardiomyopathy. No evidence of acute coronary syndrome. Continue aggressive medical therapy including aggressive control of blood pressure, see below. Continue high-intensity statin therapy. Continue Plavix therapy for now. (2) Atrial fibrillation: Status: Acute Assessment and Plan: Persistent atrial fibrillation with slow ventricular response. Tolerating it well. No need for pacing therapy. Cannot maximize carvedilol therapy due to slow ventricular response. Continue current carvedilol therapy. Continue full oral anticoagulation, currently on Eliquis 2.5 mg b.i.d.. (3) Hypertensive urgency: Status: Acute Assessment and Plan: Hypertensive urgency with continued elevation of blood pressure. Nifedipine has been increased. Will add hydralazine 25 mg b.i.d. to his regimen. Continue lisinopril and carvedilol. Low-salt diet recommended. Continue to maximize hydralazine as tolerated. (4) Ischemic cardiomyopathy: Status: Acute Assessment and Plan: Ischemic cardiomyopathy without overt heart failure at this time. Elevated BNP secondary to renal insufficiency, known LV systolic dysfunction. There is no clear evidence of clinical heart failure at this time. Continue to maximize medical therapy including aggressive blood pressure control. Add hydralazine as afterload levi maker. Continue lisinopril and carvedilol therapy. Continue to monitor renal function. Will follow with you Fall Risk Details Current Medications: Current Medications Generic Name Dose Route Start Last Admin Trade Name Fremaricruz PRN Reason Stop Dose Admin Albuterol Sulfate 2 puff 03/29/20 09:06 Albuterol Sulfate 90 Mcg 8 Gm Inhaler INHALE Q4H PRN Shortness Of Breath Apixaban 2.5 mg 03/29/20 09:00 03/30/20 08:27 Apixaban 2.5 Mg Tablet PO 2.5 mg BID BOB Administration Atorvastatin Calcium 80 mg 03/29/20 09:00 03/30/20 08:26 Atorvastatin Calcium 80 Mg Tablet PO 80 mg DAILY BOB Administration Carvedilol 3.125 mg 03/29/20 09:15 03/30/20 08:27 Carvedilol 3.125 Mg Tablet PO 3.125 mg BID BOB Administration Protocol Clopidogrel Bisulfate 75 mg 03/29/20 09:00 03/30/20 08:27 Clopidogrel Bisulfate 75 Mg Tablet PO 75 mg DAILY BOB Administration Famotidine 40 mg 03/29/20 09:00 03/30/20 08:25 Famotidine 20 Mg Tablet PO 40 mg DAILY BOB Administration Fluticasone/Vilanterol 1 puff 03/29/20 08:00 03/30/20 08:34 Fluticasone/Vilanterol 200/25 Blst.W.Dev INHALE 1 puff RDAILY BOB Administration Piperacillin Sod/Tazobactam 50 mls @ 100 mls/hr 03/30/20 04:00 03/30/20 04:38 Sod 2.25 gm/ Sodium Chloride IV Infused Q6H BOB Infusion Insulin Glargine 20 unit 03/29/20 21:00 03/29/20 20:44 Insulin Glargine,Hum.Rec.Anlog 100 Unit/Ml 10 Ml Vial SUBCUT Not Given BEDTIME BOB Insulin Human Lispro 8 unit 03/29/20 16:30 03/30/20 08:27 Insulin Lispro 100 Unit/Ml 3 Ml Vial SUBCUT Not Given BIDAC [facility] Isosorbide Mononitrate 120 mg 03/29/20 09:00 03/30/20 08:26 Isosorbide Mononitrate 60 Mg Tab.Er.24h PO 120 mg DAILY [facility] Administration Protocol Lisinopril 10 mg 03/29/20 09:00 03/30/20 08:26 Lisinopril 10 Mg Tablet PO 10 mg DAILY [facility] Administration Protocol Nifedipine 90 mg 03/29/20 09:00 03/30/20 08:25 Nifedipine Er 30 Mg Tab.Er.24 PO 90 mg DAILY [facility] Administration Non-Formulary Medication 1 inhalation 03/29/20 09:15 Umeclidinium INHALE DAILY [facility] Sodium Chloride 3 ml 03/29/20 08:00 03/30/20 08:28 0.9 % Sodium Chloride Flush 3 Ml Syringe IVFLUSH 3 ml QSHIFT [facility] Administration Torsemide 40 mg 03/29/20 09:00 03/30/20 08:29 Torsemide 20 Mg Tablet PO 40 mg DAILY [facility] Administration Protocol Vitamin D 50 mcg 03/29/20 09:00 03/30/20 08:26 Cholecalciferol (Vitamin D3) 25 Mcg Tablet PO 50 mcg DAILY [facility] Administration Time Spent With Patient Time: Total time spent is greater than 50% in coordination of care (as documented) at patient's floor/unit and/or counseling patient: Time with patient: 25 - 35 minutes
[2020-03-30 11:39] LABS: Glucose, Whole Blood 151 mg/dL (60-115)
--- NOTE | 2020-03-30 13:06 | P.PNIM_ITS ---
Subjective Subjective Date of Service: 03/30/20 Interval History: abd pain Cardiovascular Cardiovascular: Reports no additional cardiovascular complaints Gastrointestinal Gastrointestinal: Reports no additional gastrointestinal complaints Physical Exam Vital Signs: Vital Signs: Last Vital Signs Temp 97.8 F 03/30/20 11:06 Pulse 53 03/30/20 11:06 Resp 18 03/30/20 11:06 BP 172/80 H 03/30/20 11:06 Pulse Ox 96 03/30/20 11:06 Body Mass Index 29.1 General: AO X 3, no acute distress Resp: CTA bilateral CVS: S1,S2,RRR GI: soft, non tender, non distended Neuro: motor grossly intact Psych: appropriate affect Objective Data Current Medications Generic Name Dose Route Start Last Admin Trade Name Freq PRN Reason Stop Dose Admin Albuterol Sulfate 2 puff 03/29/20 09:06 Albuterol Sulfate 90 Mcg 8 Gm Inhaler INHALE Q4H PRN Shortness Of Breath Apixaban 2.5 mg 03/29/20 09:00 03/30/20 08:27 Apixaban 2.5 Mg Tablet PO 2.5 mg BID BOB Administration Atorvastatin Calcium 80 mg 03/29/20 09:00 03/30/20 08:26 Atorvastatin Calcium 80 Mg Tablet PO 80 mg DAILY [facility] Administration Carvedilol 3.125 mg 03/29/20 09:15 03/30/20 08:27 Carvedilol 3.125 Mg Tablet PO 3.125 mg BID [facility] Administration Protocol Clopidogrel Bisulfate 75 mg 03/29/20 09:00 03/30/20 08:27 Clopidogrel Bisulfate 75 Mg Tablet PO 75 mg DAILY [facility] Administration Famotidine 40 mg 03/29/20 09:00 03/30/20 08:25 Famotidine 20 Mg Tablet PO 40 mg DAILY [facility] Administration Fluticasone/Vilanterol 1 puff 03/29/20 08:00 03/30/20 08:34 Fluticasone/Vilanterol 200/25 Blst.W.Dev INHALE 1 puff RDAILY [facility] Administration Hydralazine HCl 25 mg 03/30/20 21:00 Hydralazine Hcl 25 Mg Tablet PO BID BOB Protocol Piperacillin Sod/Tazobactam 50 mls @ 100 mls/hr 03/30/20 04:00 03/30/20 12:07 Sod 2.25 gm/ Sodium Chloride IV Infused Q6H [facility] Infusion Insulin Glargine 20 unit 03/29/20 21:00 03/29/20 20:44 Insulin Glargine,Hum.Rec.Anlog 100 Unit/Ml 10 Ml Vial SUBCUT Not Given BEDTIME [facility] Insulin Human Lispro 8 unit 03/29/20 16:30 03/30/20 08:27 Insulin Lispro 100 Unit/Ml 3 Ml Vial SUBCUT Not Given BIDAC [facility] Isosorbide Mononitrate 120 mg 03/29/20 09:00 03/30/20 08:26 Isosorbide Mononitrate 60 Mg Tab.Er.24h PO 120 mg DAILY [facility] Administration Protocol Lisinopril 10 mg 03/29/20 09:00 03/30/20 08:26 Lisinopril 10 Mg Tablet PO 10 mg DAILY [facility] Administration Protocol Nifedipine 90 mg 03/29/20 09:00 03/30/20 08:25 Nifedipine Er 30 Mg Tab.Er.24 PO 90 mg DAILY [facility] Administration Non-Formulary Medication 1 inhalation 03/29/20 09:15 Umeclidinium INHALE DAILY [facility] Sodium Chloride 3 ml 03/29/20 08:00 03/30/20 08:28 0.9 % Sodium Chloride Flush 3 Ml Syringe IVFLUSH 3 ml QSHIFT [facility] [place] Administration Torsemide 40 mg 03/29/20 09:00 03/30/20 08:29 Torsemide 20 Mg Tablet PO 40 mg DAILY [facility] [place] Administration Protocol Vitamin D 50 mcg 03/29/20 09:00 03/30/20 08:26 Cholecalciferol (Vitamin D3) 25 Mcg Tablet PO 50 mcg DAILY [facility] Administration Labs CBC & Chem 7: 03/30/20 06:29 03/30/20 06:29 Microbiology Microbiology Results: Microbiology 03/28/20 22:34 Blood - Venous Blood Culture - Preliminary No growth after 24 hours. 03/28/20 22:33 Blood - Venous Blood Culture - Preliminary No growth after 24 hours. Assessment and Plan (1) Ischemic cardiomyopathy: Status: Acute (2) Periumbilical abdominal pain: Status: Acute (3) CAD (coronary artery disease): Status: Acute (4) HEIDI (acute kidney injury): Status: Acute (5) Type 2 diabetes mellitus with unspecified complications: Status: Acute (6) Persistent atrial fibrillation: Status: Acute Assessment and Plan: 85-year-old male presented with abdominal pain Colitis IV Zosyn Follow-up GI Hypertensive urgency Continue Imdur, nifedipine (increased to 90 mg daily), Coreg, started on hydralazine 25 mg b.i.d. Chronic systolic CHF - ischemic Low-dose carvedilol Continue JEN-inhibitor Torsemide plavix, eliquis, lipitor AFib Continue Eliquis, Coreg CKD IV monitor
--- NOTE | 2020-03-30 14:34 | MHC.CM.PN ---
per rounds no dc date athis time
[2020-03-30 16:05] LABS: Glucose, Whole Blood 169 mg/dL (60-115)
[2020-03-30 20:05] LABS: Glucose, Whole Blood 184 mg/dL (60-115)
[2020-03-30] MEDS: Insulin Glargine,Hum.rec.anlog 100 UNIT/ML 10 ML VIAL 20 UNIT SUBCUT (20:22)
[2020-03-30] MEDS: hydrALAZINE HCl 25 MG TABLET PO (20:22)
[2020-03-31] VITALS (11 sets, daily range): BP systolic 159–188; BP diastolic 69–92; PULSE 45–62; RESP 18–20; TEMP 36–36.8; O2SAT 92–96
--- NOTE | 2020-03-31 | US_ITS ---
EXAMINATION: US RETROPERITONEAL LIMITED (RENAL ONLY) CLINICAL INFORMATION: Urinary retention. COMPARISON: CT scan of the abdomen and pelvis dated 03/28/2020 and abdominal ultrasound TECHNIQUE: Multiple 2-D grayscale and color Doppler ultrasound images of the kidneys were obtained. FINDINGS: RIGHT KIDNEY: 11.0 cm. An interpolar anechoic cyst measures 2.3 cm. No nephrolithiasis or hydroureteronephrosis. LEFT KIDNEY: 11.1 cm. No nephrolithiasis or hydroureteronephrosis. US/US renal BI IMPRESSION: 1. Interpolar right renal cyst demonstrates benign features correlating with previous studies. No other significant abnormality.
[2020-03-31] MEDS: Piperacillin Sodium/Tazobactam 2.25 GM in 0.9 % Sodium Chloride 50 ML IV ×4 (03:45→21:34)
[2020-03-31 06:21] LABS: MANUAL DIFF FLAG NO
[2020-03-31 06:27] LABS: Basophils Percent Auto 0.3 % (0-2); Eosinophils Absolute Auto 0.5 X10*3/uL (0.0-0.4); Hematocrit 32.4 % (42-52); Hemoglobin 11.5 g/dl (14.0-18.0); Imm Gran Abs Auto 0.02 X10*3/uL (0.00-0.03); Imm Gran Pct Auto 0.3 % (0.0-0.4); Lymphocytes Absolute Auto 1.2 X10*3/uL (1.2-4.9); Lymphocytes Percent Auto 16.4 % (20-40); Mean Corpuscular HGB Conc 35.5 g/dl (31.0-36.0); Mean Corpuscular Hemoglobin 32.9 pg (27.0-33.0); Mean Corpuscular Volume 92.6 fL (80-98); Mean Platelet Volume 10.9 fL (9.4-12.4); Monocytes Absolute Auto 0.8 X10*3/uL (0.1-1.2); Monocytes Percent Auto 11.1 % (2-11); Neutrophils Absolute Auto 4.9 X10*3/uL (2.0-8.3); Neutrophils Percent Auto 64.9 % (45-73); Platelet Count 398 X10*3/uL (160-400); Red Cell Distribution Width 12.3 % (11.0-16.0); White Blood Count 7.6 X10*3/uL (4.8-10.8)
[2020-03-31 06:53] LABS: Anion Gap 12 (12-20); Blood Urea Nitrogen 30 mg/dL (9-16); Calcium 7.6 mg/dL (8.4-10.2); Carbon Dioxide 28 mmol/L (22-29); Chloride 103 mmol/L (96-108); Creatinine Clr Calc Pharmacy 19.5; Estimated Glomerular Filt Rate 20; Glucose Fasting 113 mg/dL (60-99); Magnesium 2.1 mg/dL (1.6-2.6); Potassium 3.3 mmol/L (3.3-5.1); Sodium 140 mmol/L (135-145)
[2020-03-31 07:07] LABS: Glucose, Whole Blood 109 mg/dL (60-115)
[2020-03-31] MEDS: Fluticasone/Vilanterol 200/25 BLST.W.DEV 1 PUFF INHALE (07:15)
[2020-03-31] MEDS: NIFEdipine ER 30 MG TAB.ER.24 90 MG PO (07:59)
[2020-03-31] MEDS: hydrALAZINE HCl 25 MG TABLET PO (07:59)
[2020-03-31] MEDS: Famotidine 20 MG TABLET 40 MG PO (08:00)
[2020-03-31] MEDS: Torsemide 20 MG TABLET 40 MG PO (08:02)
[2020-03-31] MEDS: carvediloL 3.125 MG TABLET PO ×2 (08:03→20:42)
[2020-03-31] MEDS: Apixaban 2.5 MG TABLET PO ×2 (08:03→20:41)
[2020-03-31] MEDS: Clopidogrel Bisulfate 75 MG TABLET PO (08:03)
[2020-03-31] MEDS: Isosorbide Mononitrate 60 MG TAB.ER.24H 120 MG PO (08:03)
[2020-03-31] MEDS: Cholecalciferol (Vitamin D3) 25 MCG TABLET 50 MCG PO (08:04)
[2020-03-31] MEDS: 0.9 % Sodium Chloride Flush 3 ML SYRINGE IVFLUSH ×3 (08:05→23:59)
[2020-03-31] MEDS: Atorvastatin Calcium 80 MG TABLET PO (08:06)
--- NOTE | 2020-03-31 10:31 | P.PNCA_ITS ---
Subjective Subjective Date of Service: 03/31/20 Principal diagnosis: Hypertension, ischemic cardiomyopathy, coronary artery disease. Interval history: Patient denies any cardiac complaints at current time. Denies any chest pain or shortness of breath. Blood pressure remains elevated, however yesterday afternoon blood pressure was on the lower side. Denies orthopnea, PND. Creatinine has further risen Review of Systems Cardiovascular: Reports no additional cardiovascular complaints Respiratory: Reports no additional respiratory complaints Genitourinary: Reports no additional male genitourinary complaints Reports system reviewed and no additional complaints, except as documented Psychiatric: Reports no additional psychiatric complaints Physical Exam Vital Signs: Last Vital Signs Temp 98 F 03/31/20 07:03 Pulse 62 03/31/20 08:03 Resp 20 03/31/20 07:03 BP 170/77 H 03/31/20 08:03 Pulse Ox 92 03/31/20 07:03 Body Mass Index 29.1 Const General: cooperative, comfortable, no acute distress, alert and awake Orientation/consciousness: patient oriented x3 Neck Neck: Yes trachea midline, Yes supple and Yes no JVD Resp Effort & Inspection: normal respiratory effort Auscultation: clear to auscultation bilaterally Cardio Jugular venous distension: no JVD Palpation: abnormal PMI displaced PMI Rhythm: abnormal rhythm irregularly irregular Heart sounds: S1 normal heart sound present and S2 normal heart sound present Skin General skin exam: no rashes or lesions noted Neuro General: patient oriented x3 and no focal motor deficits Extrem General: Yes no clubbing, cyanosis or edema Results Labs and Meds Result diagrams: 03/31/20 05:29 03/31/20 05:29 Lab results: Laboratory Results - last 24 hr 03/30/20 03/30/20 03/30/20 11:34 15:58 19:58 WBC RBC Hgb Hct MCV MCH MCHC RDW Plt Count MPV Immature Gran % (Auto) Neut % (Auto) Lymph % (Auto) [place] % (Auto) Eos % (Auto) Baso % (Auto) Lymph # (Auto) [place] # (Auto) Eos # (Auto) Baso # (Auto) Abs Immat Gran (auto) Absolute Neuts (auto) Absolute Nucleated RBC Nucleated RBC % (auto) Sodium Potassium Chloride Carbon Dioxide Anion Gap BUN Creatinine Estim Creat Clear Calc Estimated GFR POC Glucose 151 H 169 H 184 H Fasting Glucose Calcium Magnesium 0203/31/20 03/31/20 05:29 05:29 07:04 WBC 7.6 RBC 3.50 L Hgb 11.5 L Hct 32.4 L MCV 92.6 MCH 32.9 MCHC 35.5 RDW 12.3 Plt Count 398 MPV 10.9 Immature Gran % (Auto) 0.3 Neut % (Auto) 64.9 Lymph % (Auto) 16.4 L [place] % (Auto) 11.1 H Eos % (Auto) 7.0 H Baso % (Auto) 0.3 Lymph # (Auto) 1.2 [place] # (Auto) 0.8 Eos # (Auto) 0.5 H Baso # (Auto) 0.0 Abs Immat Gran (auto) 0.02 Absolute Neuts (auto) 4.9 Absolute Nucleated RBC 0.000 Nucleated RBC % (auto) 0.0 Sodium 140 Potassium 3.3 Chloride 103 Carbon Dioxide 28 Anion Gap 12 BUN 30 H Creatinine 2.98 H Estim Creat Clear Calc 19.5 Estimated GFR 20 POC Glucose 109 Fasting Glucose 113 H Calcium 7.6 L Magnesium 2.1 Progress Note: A&P Assessment and plan (1) Ischemic cardiomyopathy: Status: Acute Assessment and Plan: Underlying ischemic cardiomyopathy. Worsening renal function. Consider holding lisinopril therapy. Continue carvedilol therapy. Cannot uptitrate carvedilol due to lower heart rate. Not in overt heart failure at this point in time. Signs and symptoms of heart failure were discussed. (2) Hypertensive urgency: Status: Acute Assessment and Plan: Continued elevated blood pressure. Creatinine is further elevated. Consider Nephrology consult, see below. Increase hydralazine to 50 mg b.i.d.. Consider holding lisinopril therapy. Low-salt diet. (3) Persistent atrial fibrillation: Status: Acute Assessment and Plan: Persistent atrial fibrillation, currently rate controlled. Continue rate control with carvedilol therapy. Currently on oral anticoagulation Eliquis, however given his rising creatinine Eliquis should be held for now. Nephrology consult should be requested. (4) HEIDI (acute kidney injury): Status: Acute Assessment and Plan: Acute kidney injury, unclear reason. Consider Nephrology consult. Will sign of the case Fall Risk Details Current Medications: Current Medications Generic Name Dose Route Start Last Admin Trade Name Freq PRN Reason Stop Dose Admin Albuterol Sulfate 2 puff 03/29/20 09:06 Albuterol Sulfate 90 Mcg 8 Gm Inhaler INHALE Q4H PRN Shortness Of Breath Apixaban 2.5 mg 03/29/20 09:00 03/31/20 08:03 Apixaban 2.5 Mg Tablet PO 2.5 mg BID BOB Administration Atorvastatin Calcium 80 mg 03/29/20 09:00 03/31/20 08:06 Atorvastatin Calcium 80 Mg Tablet PO 80 mg DAILY [facility]OB Administration Carvedilol 3.125 mg 03/29/20 09:15 03/31/20 08:03 Carvedilol 3.125 Mg Tablet PO 3.125 mg BID BOB Administration Protocol Clopidogrel Bisulfate 75 mg 03/29/20 09:00 03/31/20 08:03 Clopidogrel Bisulfate 75 Mg Tablet PO 75 mg DAILY [facility] Administration Famotidine 40 mg 03/29/20 09:00 03/31/20 08:00 Famotidine 20 Mg Tablet PO 40 mg DAILY [facility] Administration Fluticasone/Vilanterol 1 puff 03/29/20 08:00 03/31/20 07:15 Fluticasone/Vilanterol 200/25 Blst.W.Dev INHALE 1 puff RDAILY [facility] Administration Hydralazine HCl 25 mg 03/30/20 21:00 03/31/20 07:59 Hydralazine Hcl 25 Mg Tablet PO 25 mg BID [facility] Administration Protocol Piperacillin Sod/Tazobactam 50 mls @ 100 mls/hr 03/30/20 04:00 03/31/20 04:22 Sod 2.25 gm/ Sodium Chloride IV Infused Q6H [facility] Infusion Insulin Glargine 20 unit 03/29/20 21:00 03/30/20 20:22 Insulin Glargine,Hum.Rec.Anlog 100 Unit/Ml 10 Ml Vial SUBCUT 20 unit BEDTIME [facility] Administration Insulin Human Lispro 8 unit 03/29/20 16:30 03/31/20 09:19 Insulin Lispro 100 Unit/Ml 3 Ml Vial SUBCUT Not Given BIDAC [facility] Isosorbide Mononitrate 120 mg 03/29/20 09:00 03/31/20 08:03 Isosorbide Mononitrate 60 Mg Tab.Er.24h PO 120 mg DAILY [facility] Administration Protocol Lisinopril 10 mg 03/29/20 09:00 03/31/20 08:02 Lisinopril 10 Mg Tablet PO 10 mg DAILY [facility] Administration Protocol Nifedipine 90 mg 03/29/20 09:00 03/31/20 07:59 Nifedipine Er 30 Mg Tab.Er.24 PO 90 mg DAILY [facility] Administration Non-Formulary Medication 1 inhalation 03/29/20 09:15 Umeclidinium INHALE DAILY [facility] Sodium Chloride 3 ml 03/29/20 08:00 03/31/20 08:05 0.9 % Sodium Chloride Flush 3 Ml Syringe IVFLUSH 3 ml QSHIFT [facility] Administration Torsemide 40 mg 03/29/20 09:00 03/31/20 08:02 Torsemide 20 Mg Tablet PO 40 mg DAILY [facility] Administration Protocol Vitamin D 50 mcg 03/29/20 09:00 03/31/20 08:04 Cholecalciferol (Vitamin D3) 25 Mcg Tablet PO 50 mcg DAILY [facility] Administration Time Spent With Patient Time: Total time spent is greater than 50% in coordination of care (as documented) at patient's floor/unit and/or counseling patient: Time with patient: 25 - 35 minutes
--- NOTE | 2020-03-31 11:06 | P.CONNP_ITS ---
History of Present Illness Reason for Consult Consult date: 03/31/20 Reason for consult: HEIDI Chief Complaint Chief complaint: Colitis/Hypertensive Urgency History of Present Illness Narrative: 85 y/o male with an extensive PMHX who presented from home due to persistent abdominal pain. He was prescribed Levaquin and flagyl for colitis by ER. As antibiotics did not improve his symptoms he decided to come to the ED for further evaluation. On presentation to the ED patient is found to have a BP of 218/100 - 246/92 mmHg. Patient was given home BP meds as well as multiple IV BP meds with partial improvement of his BP. CT abdomen was obtained which shows colitis in the descending colon. He has baseline creatinine of 1.97 which has gone up significantly. He has been on ACEI at home and had significant fluctuations in BP. Nephrology has been consulted to assist in his clinical care during his current hospital stay. Review of Systems Review of Systems Yes all other systems are reviewed and are negative PMFSH Past Medical History Medical History Abdominal pain Anemia Atherosclerotic cardiovascular disease Chronic combined systolic and diastolic congestive heart failure Chronic GERD Colitis Diabetes mellitus Ischemic cardiomyopathy Myocardial infarction Persistent atrial fibrillation Tubular adenoma Type 2 diabetes mellitus with unspecified complications Functional capacity: independent ambulation Family History Family History Father No problems noted. Mother No problems noted. Surgical History Surgical History Hx of colonoscopy Social History Social History Household Members: Family Housing: House Alcohol intake: never Smoking Status: Never smoker service: No Current occupational status: unemployed Meds Allergies Allergy/AdvReac Type Severity Reaction Status Date / Time No Known Allergies Allergy Verified 03/17/20 11:07 Home Medications Medication Instructions Recorded Confirmed Type albuterol sulfate 90 mcg/actuation 0 mcg INHALATION Q4-6H PRN 12/04/19 03/29/20 History aerosol inhaler alcohol swabs 0 pad TOPICAL CONT 12/04/19 03/29/20 History apixaban 2.5 mg tablet 2.5 mg PO BID 12/04/19 03/29/20 History blood sugar diagnostic #10 ea 12/04/19 03/17/20 History cholecalciferol (vitamin D3) 50 50 mcg PO DAILY 12/04/19 03/29/20 History mcg (2,000 unit) capsule clopidogrel 75 mg tablet 75 mg PO DAILY 12/04/19 03/29/20 History dextrose 40 % oral gel g PO PRN 12/04/19 03/17/20 History fluticasone 250 mcg-salmeterol 50 1 ea PO Q12H 12/04/19 03/29/20 History mcg/dose blistr powdr for inhalation glucose 4 gram chewable tablet 800f16 g PO PRN 12/04/19 03/17/20 History lancets 33 gauge #100 ea 12/04/19 03/17/20 History pen needle, diabetic 32 gauge x #50 ea 12/04/19 03/17/20 History umeclidinium 62.5 mcg/actuation 1 inh INHALATION DAILY 12/04/19 03/29/20 History blister powder for inhalation insulin aspart U-100 100 unit/mL 8 unit SUBCUT BID ml 02/12/20 03/29/20 History (3 mL) subcutaneous pen insulin glargine 100 unit/mL (3 20 unit SUBCUT BEDTIME ml 02/12/20 03/29/20 History mL) subcutaneous pen famotidine 40 mg tablet 40 mg PO DAILY 03/10/20 03/29/20 History Physical Exam Vital Signs: Last Vital Signs Temp 96.8 F 03/31/20 10:59 Pulse 45 L 03/31/20 10:59 Resp 20 03/31/20 10:59 BP 159/69 H 03/31/20 10:59 Pulse Ox 94 03/31/20 10:59 Body Mass Index 29.1 Const General: no acute distress Neck Neck: Yes supple Resp Auscultation: diminished lung sounds Cardio Rate: regular rate GI Palpation (GI): Soft to palpation Neuro General: moves all extremities Results Lab Results Result Diagrams: 03/31/20 05:29 03/31/20 05:29 Lab results: Chemistry 03/28/20 03/30/20 03/31/20 21:34 06:29 05:29 Sodium 138 138 140 Potassium 3.9 3.8 3.3 Carbon Dioxide 27 28 28 BUN 21 H 28 H 30 H Creatinine 1.97 H 2.35 H 2.98 H Calcium 8.4 7.7 L D 7.6 L Hematology 03/28/20 03/30/20 03/31/20 21:34 06:29 05:29 WBC 10.4 9.4 7.6 Hgb 13.6 L 11.8 L 11.5 L Plt Count 427 H 397 398 Urinalysis 03/29/20 03:23 Urine Color PIPPA Urine Appearance CLEAR Urine pH 6.5 Ur Specific [place] 1.020 Urine Protein 3+ H Urine Glucose (UA) 250 H Urine Ketones 5 Urine Blood 2+ H Urine Nitrite NEG Ur Leukocyte Esterase NEG Urine RBC 1-4 Urine WBC 1-4 Ur Squamous Epith Cells TRACE Hyaline Casts 10-14 Assessment and Plan (1) HEIDI (acute kidney injury): Problem details: Acute Kidney Injury due to tubular injury HTN CKD 4 He has been on ACEI and had huge lability of BP. DDx- AIN from medications given for colitis ( unlikely) ACEI has been on hold. BP control better. Serum creatinine not plateaued yet Continue current supportive care for now Labs AM. Shall closely follow up Status: Acute
[2020-03-31 11:17] LABS: Glucose, Whole Blood 142 mg/dL (60-115)
--- NOTE | 2020-03-31 12:06 | P.PNIM_ITS ---
Subjective Subjective Date of Service: 03/31/20 Interval History: feeling better Cardiovascular Cardiovascular: Reports no additional cardiovascular complaints Gastrointestinal Gastrointestinal: Reports no additional gastrointestinal complaints Physical Exam Vital Signs: Vital Signs: Last Vital Signs Temp 96.8 F 03/31/20 10:59 Pulse 45 L 03/31/20 10:59 Resp 20 03/31/20 10:59 BP 159/69 H 03/31/20 10:59 Pulse Ox 94 03/31/20 10:59 Body Mass Index 29.1 General: AO X 3, no acute distress Resp: CTA bilateral CVS: S1,S2,RRR GI: soft, non tender, non distended Neuro: motor grossly intact Psych: appropriate affect Objective Data Current Medications Generic Name Dose Route Start Last Admin Trade Name Freq PRN Reason Stop Dose Admin Albuterol Sulfate 2 puff 03/29/20 09:06 Albuterol Sulfate 90 Mcg 8 Gm Inhaler INHALE Q4H PRN Shortness Of Breath Apixaban 2.5 mg 03/29/20 09:00 03/31/20 08:03 Apixaban 2.5 Mg Tablet PO 2.5 mg BID BOB Administration Atorvastatin Calcium 80 mg 03/29/20 09:00 03/31/20 08:06 Atorvastatin Calcium 80 Mg Tablet PO 80 mg DAILY BOB Administration Carvedilol 3.125 mg 03/29/20 09:15 03/31/20 08:03 Carvedilol 3.125 Mg Tablet PO 3.125 mg BID BOB Administration Protocol Clopidogrel Bisulfate 75 mg 03/29/20 09:00 03/31/20 08:03 Clopidogrel Bisulfate 75 Mg Tablet PO 75 mg DAILY BOB Administration Famotidine 40 mg 03/29/20 09:00 03/31/20 08:00 Famotidine 20 Mg Tablet PO 40 mg DAILY BOB Administration Fluticasone/Vilanterol 1 puff 03/29/20 08:00 03/31/20 07:15 Fluticasone/Vilanterol 200/25 Blst.W.Dev INHALE 1 puff RDAILY BOB Administration Hydralazine HCl 50 mg 03/31/20 21:00 Hydralazine Hcl 25 Mg Tablet PO BID BOB Protocol Piperacillin Sod/Tazobactam 50 mls @ 100 mls/hr 03/30/20 04:00 03/31/20 11:28 Sod 2.25 gm/ Sodium Chloride IV 100 mls/hr Q6H BOB Administration Insulin Glargine 20 unit 03/29/20 21:00 03/30/20 20:22 Insulin Glargine,Hum.Rec.Anlog 100 Unit/Ml 10 Ml Vial SUBCUT 20 unit BEDTIME BOB Administration Insulin Human Lispro 8 unit 03/29/20 16:30 03/31/20 09:19 Insulin Lispro 100 Unit/Ml 3 Ml Vial SUBCUT Not Given BIDAC [facility] Isosorbide Mononitrate 120 mg 03/29/20 09:00 03/31/20 08:03 Isosorbide Mononitrate 60 Mg Tab.Er.24h PO 120 mg DAILY [facility] Administration Protocol Nifedipine 90 mg 03/29/20 09:00 03/31/20 07:59 Nifedipine Er 30 Mg Tab.Er.24 PO 90 mg DAILY BOB Administration Non-Formulary Medication 1 inhalation 03/29/20 09:15 Umeclidinium INHALE DAILY [facility] Sodium Chloride 3 ml 03/29/20 08:00 03/31/20 08:05 0.9 % Sodium Chloride Flush 3 Ml Syringe IVFLUSH 3 ml QSHIFT [facility] Administration Torsemide 40 mg 03/29/20 09:00 03/31/20 08:02 Torsemide 20 Mg Tablet PO 40 mg DAILY [facility] Administration Protocol Vitamin D 50 mcg 03/29/20 09:00 03/31/20 08:04 Cholecalciferol (Vitamin D3) 25 Mcg Tablet PO 50 mcg DAILY BOB Administration Labs CBC & Chem 7: 03/31/20 05:29 03/31/20 05:29 Microbiology Microbiology Results: Microbiology 03/28/20 22:34 Blood - Venous Blood Culture - Preliminary No growth after 48 hours. 03/28/20 22:33 Blood - Venous Blood Culture - Preliminary No growth after 48 hours. Assessment and Plan (1) Ischemic cardiomyopathy: Status: Acute (2) Periumbilical abdominal pain: Status: Acute (3) CAD (coronary artery disease): Status: Acute (4) HEIDI (acute kidney injury): Problem details: Acute Kidney Injury due to tubular injury HTN CKD 4 He has been on ACEI and had huge lability of BP. DDx- AIN from medications given for colitis ( unlikely) ACEI has been on hold. BP control better. Serum creatinine not plateaued yet Continue current supportive care for now Labs AM. Shall closely follow up Status: Acute (5) Type 2 diabetes mellitus with unspecified complications: Status: Acute (6) Persistent atrial fibrillation: Status: Acute Assessment and Plan: 85-year-old male presented with abdominal pain Colitis IV Zosyn improved, outpatient gi follow up. Hypertensive urgency Continue Imdur, nifedipine (increased to 90 mg daily), Coreg (cannot increase due to bradycardia), started on hydralazine 25 mg b.i.d. - increased to 50mg bid Chronic systolic CHF - ischemic Low-dose carvedilol Continue JEN-inhibitor Torsemide plavix, eliquis, lipitor AFib Continue Eliquis, Coreg HEIDI on CKD IV nephro appreciatied monitor check renal us
--- NOTE | 2020-03-31 16:04 | PC.NURSE ---
Patient returned from his Renal U/S
[2020-03-31 16:11] LABS: Glucose, Whole Blood 135 mg/dL (60-115)
[2020-03-31 20:08] LABS: Glucose, Whole Blood 177 mg/dL (60-115)
[2020-03-31] MEDS: Insulin Glargine,Hum.rec.anlog 100 UNIT/ML 10 ML VIAL 20 UNIT SUBCUT (20:35)
[2020-03-31] MEDS: hydrALAZINE HCl 25 MG TABLET 50 MG PO (20:42)
[2020-04-01 03:23] VITALS: BP 178/79; PULSE 50; RESP 18; TEMP 36.7; O2SAT 96
[2020-04-01] MEDS: Piperacillin Sodium/Tazobactam 2.25 GM in 0.9 % Sodium Chloride 50 ML IV ×4 (03:23→20:35)
[2020-04-01 06:42] LABS: MANUAL DIFF FLAG NO
--- NOTE | 2020-04-01 06:46 | PC.NURSE ---
Patient continues to have elevated blood pressure readings, @ 2000; 180/75, hr 61. Hospitalist made aware of elevated blood pressures. Continue to monitor.
[2020-04-01 06:51] LABS: Basophils Percent Auto 0.4 % (0-2); Eosinophils Absolute Auto 0.5 X10*3/uL (0.0-0.4); Eosinophils Percent Auto 5.9 % (0-4); Hematocrit 34.3 % (42-52); Hemoglobin 12.4 g/dl (14.0-18.0); Imm Gran Abs Auto 0.02 X10*3/uL (0.00-0.03); Imm Gran Pct Auto 0.3 % (0.0-0.4); Lymphocytes Absolute Auto 1.3 X10*3/uL (1.2-4.9); Lymphocytes Percent Auto 17.3 % (20-40); Mean Corpuscular HGB Conc 36.2 g/dl (31.0-36.0); Mean Corpuscular Hemoglobin 32.7 pg (27.0-33.0); Mean Corpuscular Volume 90.5 fL (80-98); Mean Platelet Volume 10.9 fL (9.4-12.4); Monocytes Absolute Auto 0.8 X10*3/uL (0.1-1.2); Monocytes Percent Auto 10.6 % (2-11); Neutrophils Percent Auto 65.5 % (45-73); Platelet Count 449 X10*3/uL (160-400); Red Blood Count 3.79 X10*6/uL (4.60-5.80); Red Cell Distribution Width 11.9 % (11.0-16.0); White Blood Count 7.7 X10*3/uL (4.8-10.8)
[2020-04-01 07:12] VITALS: BP 188/86; PULSE 62; RESP 19; TEMP 36; O2SAT 92
[2020-04-01 07:17] LABS: Anion Gap 13 (12-20); Blood Urea Nitrogen 26 mg/dL (9-16); Calcium 7.5 mg/dL (8.4-10.2); Carbon Dioxide 26 mmol/L (22-29); Chloride 103 mmol/L (96-108); Creatinine Clr Calc Pharmacy 20.2; Estimated Glomerular Filt Rate 21; Glucose Fasting 101 mg/dL (60-99); Sodium 139 mmol/L (135-145)
[2020-04-01 07:29] LABS: Glucose, Whole Blood 104 mg/dL (60-115)
[2020-04-01] MEDS: Fluticasone/Vilanterol 200/25 BLST.W.DEV 1 PUFF INHALE (07:43)
[2020-04-01] MEDS: carvediloL 3.125 MG TABLET PO ×2 (07:59→20:34)
[2020-04-01] MEDS: Apixaban 2.5 MG TABLET PO ×2 (07:59→20:34)
[2020-04-01] MEDS: Cholecalciferol (Vitamin D3) 25 MCG TABLET 50 MCG PO (08:00)
[2020-04-01] MEDS: Isosorbide Mononitrate 60 MG TAB.ER.24H 120 MG PO (08:00)
[2020-04-01] MEDS: Potassium Chloride ER 20 MEQ TAB.ER.PRT 40 MEQ PO (08:00)
[2020-04-01] MEDS: Clopidogrel Bisulfate 75 MG TABLET PO (08:01)
[2020-04-01] MEDS: Torsemide 20 MG TABLET 40 MG PO (08:01)
[2020-04-01] MEDS: Atorvastatin Calcium 80 MG TABLET PO (08:01)
[2020-04-01] MEDS: hydrALAZINE HCl 25 MG TABLET 50 MG PO ×2 (08:01→20:34)
[2020-04-01] MEDS: Famotidine 20 MG TABLET 40 MG PO (08:01)
[2020-04-01] MEDS: 0.9 % Sodium Chloride Flush 3 ML SYRINGE IVFLUSH ×3 (08:02→20:39)
[2020-04-01] MEDS: NIFEdipine ER 30 MG TAB.ER.24 90 MG PO (08:03)
[2020-04-01 11:02] VITALS: BP 180/77; PULSE 52; RESP 20; TEMP 36; O2SAT 93
--- NOTE | 2020-04-01 11:03 | P.DS_ITS ---
DS: Providers Provider Date of Service: 04/02/20 Date of admission: 03/29/20 05:57 Primary care physician: Yoandy Lund MD Consults: 03/29/20 05:58 Consult to Gastroenterology Routine Consulting Provider: [facility] [place] Gastroenterology Services Reason for consultation: colitis Has provider been notified: No 03/29/20 06:05 Consult to General Surgery Routine Consulting Provider: [facility] [place] General Surgeons Reason for consultation: evaluation ischemic colitis Has provider been notified: No 03/29/20 06:37 Consult to Cardiology Routine Consulting Provider: [facility] [place] Cardiovascular Services Reason for consultation: hypertensive urgency Has provider been notified: Yes 03/31/20 10:39 Consult to Nephrology Routine Consulting Provider: Konstantin Robles Reason for consultation: heidi on ckd DS: Diagnosis Discharge Diagnosis (1) Ischemic cardiomyopathy: Status: Acute (2) Periumbilical abdominal pain: Status: Acute (3) CAD (coronary artery disease): Status: Acute (4) HEIDI (acute kidney injury): Status: Acute Problem details: Acute Kidney Injury due to tubular injury (improving) HTN CKD 4 He has been on ACEI and had huge lability of BP. DDx- AIN from medications given for colitis ( unlikely) ACEI has been on hold. BP control better. Serum creatinine better Continue current supportive care for now Could be D/Ronal from a renal perspective Shall arrange close follow up in my office when D/Ronal (5) Type 2 diabetes mellitus with unspecified complications: Status: Acute (6) Persistent atrial fibrillation: Status: Acute DS: Medications Discharge Medications Home Medications: Home Medications Medication Instructions Recorded Confirmed albuterol sulfate 90 mcg/actuation 0 mcg INHALATION Q4-6H PRN 12/04/19 03/29/20 aerosol inhaler alcohol swabs 0 pad TOPICAL CONT 12/04/19 03/29/20 apixaban 2.5 mg tablet 2.5 mg PO BID 12/04/19 03/29/20 blood sugar diagnostic #10 ea 12/04/19 03/17/20 cholecalciferol (vitamin D3) 50 50 mcg PO DAILY 12/04/19 03/29/20 mcg (2,000 unit) capsule clopidogrel 75 mg tablet 75 mg PO DAILY 12/04/19 03/29/20 dextrose 40 % oral gel g PO PRN 12/04/19 03/17/20 fluticasone 250 mcg-salmeterol 50 1 ea PO Q12H 12/04/19 03/29/20 mcg/dose blistr powdr for inhalation glucose 4 gram chewable tablet 800f16 g PO PRN 12/04/19 03/17/20 lancets 33 gauge #100 ea 12/04/19 03/17/20 pen needle, diabetic 32 gauge x #50 ea 12/04/19 03/17/20 5/32 umeclidinium 62.5 mcg/actuation 1 inh INHALATION DAILY 12/04/19 03/29/20 blister powder for inhalation insulin aspart U-100 100 unit/mL 8 unit SUBCUT BID ml 02/12/20 03/29/20 (3 mL) subcutaneous pen insulin glargine 100 unit/mL (3 20 unit SUBCUT BEDTIME ml 02/12/20 03/29/20 mL) subcutaneous pen famotidine 40 mg tablet 40 mg PO DAILY 03/10/20 03/29/20 Previous Rx's Medication Instructions Recorded carvedilol 3.125 mg tablet 3.125 mg PO BID 90 Days #180 tab 01/09/20 torsemide 20 mg tablet 40 mg PO DAILY 90 Days #180 tab 01/09/20 metronidazole [Flagyl] 500 mg PO BID 7 Days #14 tab 01/19/20 bisacodyl 5 mg tablet,delayed 10 mg PO ONCE 1 Days #2 tab 02/04/20 release polyethylene glycol 3350 17 238 g PO ONCE 1 Days #238 g 02/04/20 gram/dose oral powder lisinopril 10 mg tablet 10 mg PO DAILY #90 tab 02/11/20 isosorbide mononitrate 120 mg 120 mg PO DAILY 90 Days #90 tab 02/12/20 tablet,extended release 24 hr atorvastatin 80 mg tablet 80 mg PO DAILY #90 tab 02/16/20 levofloxacin 750 mg PO DAILY #7 tab 03/26/20 metronidazole [Flagyl] 500 mg PO BID 10 Days #20 tab 03/26/20 hydralazine 50 mg PO BID #120 tab 04/01/20 nifedipine 90 mg PO DAILY #30 tab 04/01/20 DS: Summary Hospital Course Hospital Course: date of service: 04/02/2020 Patient was admitted for colitis and hypertensive urgency. He was given IV Zosyn, his abdominal pain resolved and he was able to tolerate solid diet. For his hypertensive urgency he was seen by Cardiology. His nifedipine was increased to 90 mg daily and he was started on hydralazine 50 mg b.i.d.. Course was complicated by acute on chronic kidney injury. He was seen by Nephrology who felt this was likely ATN due to labile blood pressures and colitis as well as being on JEN-inhibitor. Lisinopril has been held. Creatinine has plateaued. He will be followed up as outpatient. Time Spent with Patient Time attestation: Total time spent providing and/or coordinating discharge services: Discharge coordination time: Greater than 30 minutes Physical Exam Vital Signs: Vital Signs: Last Vital Signs Temp 96.8 F 04/01/20 07:12 Pulse 62 04/01/20 07:12 Resp 19 04/01/20 07:12 BP 188/86 H 04/01/20 07:12 Pulse Ox 92 04/01/20 07:12 Body Mass Index 29.1 General: AO X 3, no acute distress Resp: CTA bilateral CVS: S1,S2,RRR GI: soft, non tender, non distended Neuro: motor grossly intact Psych: appropriate affect DS: Data Data Completed and Pending Labs on day of discharge: Laboratory Tests 03/28/20 03/28/20 03/28/20 21:34 21:34 21:34 WBC 10.4 RBC 4.13 L Hgb 13.6 L Hct 38.6 L MCV 93.5 MCH 32.9 MCHC 35.2 RDW 12.1 Plt Count 427 H MPV 10.5 Immature Gran % (Auto) 0.3 Neut % (Auto) 79.3 H Lymph % (Auto) 10.1 L [place] % (Auto) 9.2 Eos % (Auto) 0.9 Baso % (Auto) 0.2 Lymph # (Auto) 1.1 L [place] # (Auto) 1.0 Eos # (Auto) 0.1 Baso # (Auto) 0.0 Abs Immat Gran (auto) 0.03 Absolute Neuts (auto) 8.3 Absolute Nucleated RBC 0.000 Nucleated RBC % (auto) 0.0 PT INR APTT Sodium 138 Potassium 3.9 Chloride 100 Carbon Dioxide 27 Anion Gap 15 BUN 21 H Creatinine 1.97 H Estim Creat Clear Calc 29.4 Estimated GFR 33 POC Glucose Random Glucose 160 H Fasting Glucose Lactic Acid Calcium 8.4 Magnesium Total Bilirubin 0.9 AST 20 ALT 11 Alkaline Phosphatase 121 H Troponin I High Sens 74.7 H D B-Natriuretic Peptide Total Protein 5.3 L Albumin 3.1 L Lipase 18 Urine Color Urine Appearance Urine pH Ur Specific [place] Urine Protein Urine Glucose (UA) Urine Ketones Urine Blood Urine Nitrite Ur Leukocyte Esterase Urine RBC Urine WBC Ur Squamous Epith Cells Amorphous Sediment Urine Bacteria Hyaline Casts Granular Casts Waxy Casts Stool Occult Blood COVID-19 (JONATHON) COVID-19 Clin Com 03/28/20 03/28/20 03/28/20 22:20 22:24 22:32 WBC RBC Hgb Hct MCV MCH MCHC RDW Plt Count MPV Immature Gran % (Auto) Neut % (Auto) Lymph % (Auto) [place] % (Auto) Eos % (Auto) Baso % (Auto) Lymph # (Auto) [place] # (Auto) Eos # (Auto) Baso # (Auto) Abs Immat Gran (auto) Absolute Neuts (auto) Absolute Nucleated RBC Nucleated RBC % (auto) PT 15.1 H INR 1.3 H APTT 45.2 H D Sodium Potassium Chloride Carbon Dioxide Anion Gap BUN Creatinine Estim Creat Clear Calc Estimated GFR POC Glucose 178 H Random Glucose Fasting Glucose Lactic Acid Calcium Magnesium Total Bilirubin AST ALT Alkaline Phosphatase Troponin I High Sens B-Natriuretic Peptide Total Protein Albumin Lipase Urine Color Urine Appearance Urine pH Ur Specific [place] Urine Protein Urine Glucose (UA) Urine Ketones Urine Blood Urine Nitrite Ur Leukocyte Esterase Urine RBC Urine WBC Ur Squamous Epith Cells Amorphous Sediment Urine Bacteria Hyaline Casts Granular Casts Waxy Casts Stool Occult Blood NEG COVID-19 (JONATHON) COVID-19 Clin Com 03/28/20 03/28/20 03/29/20 22:32 22:32 01:13 WBC RBC Hgb Hct MCV MCH MCHC RDW Plt Count MPV Immature Gran % (Auto) Neut % (Auto) Lymph % (Auto) [place] % (Auto) Eos % (Auto) Baso % (Auto) Lymph # (Auto) [place] # (Auto) Eos # (Auto) Baso # (Auto) Abs Immat Gran (auto) Absolute Neuts (auto) Absolute Nucleated RBC Nucleated RBC % (auto) PT INR APTT Sodium Potassium Chloride Carbon Dioxide Anion Gap BUN Creatinine Estim Creat Clear Calc Estimated GFR POC Glucose Random Glucose Fasting Glucose Lactic Acid 1.8 Calcium Magnesium 1.9 Total Bilirubin AST ALT Alkaline Phosphatase Troponin I High Sens 126.1 H D B-Natriuretic Peptide 938 H Total Protein Albumin Lipase Urine Color Urine Appearance Urine pH Ur Specific [place] Urine Protein Urine Glucose (UA) Urine Ketones Urine Blood Urine Nitrite Ur Leukocyte Esterase Urine RBC Urine WBC Ur Squamous Epith Cells Amorphous Sediment Urine Bacteria Hyaline Casts Granular Casts Waxy Casts Stool Occult Blood COVID-19 (JONATHON) COVID-19 Clin Com 03/29/20 03/29/20 03/29/20 03:23 04:15 06:40 WBC RBC Hgb Hct MCV MCH MCHC RDW Plt Count MPV Immature Gran % (Auto) Neut % (Auto) Lymph % (Auto) [place] % (Auto) Eos % (Auto) Baso % (Auto) Lymph # (Auto) [place] # (Auto) Eos # (Auto) Baso # (Auto) Abs Immat Gran (auto) Absolute Neuts (auto) Absolute Nucleated RBC Nucleated RBC % (auto) PT INR APTT Sodium Potassium Chloride Carbon Dioxide Anion Gap BUN Creatinine Estim Creat Clear Calc Estimated GFR POC Glucose 132 H Random Glucose Fasting Glucose Lactic Acid Calcium Magnesium Total Bilirubin AST ALT Alkaline Phosphatase Troponin I High Sens B-Natriuretic Peptide Total Protein Albumin Lipase Urine Color [place] Urine Appearance CLEAR Urine pH 6.5 Ur Specific [place] 1.020 Urine Protein 3+ H Urine Glucose (UA) 250 H Urine Ketones 5 Urine Blood 2+ H Urine Nitrite NEG Ur Leukocyte Esterase NEG Urine RBC 1-4 Urine WBC 1-4 Ur Squamous Epith Cells TRACE Amorphous Sediment 2+ Urine Bacteria TRACE Hyaline Casts 10-14 Granular Casts 5-9 Waxy Casts 1-4 Stool Occult Blood COVID-19 (JONATHON) Negative COVID-19 Clin Com See Note 03/29/20 03/29/20 03/29/20 07:38 13:36 18:14 WBC RBC Hgb Hct MCV MCH MCHC RDW Plt Count MPV Immature Gran % (Auto) Neut % (Auto) Lymph % (Auto) [place] % (Auto) Eos % (Auto) Baso % (Auto) Lymph # (Auto) [place] # (Auto) Eos # (Auto) Baso # (Auto) Abs Immat Gran (auto) Absolute Neuts (auto) Absolute Nucleated RBC Nucleated RBC % (auto) PT INR APTT Sodium Potassium Chloride Carbon Dioxide Anion Gap BUN Creatinine Estim Creat Clear Calc Estimated GFR POC Glucose 127 H 127 H 143 H Random Glucose Fasting Glucose Lactic Acid Calcium Magnesium Total Bilirubin AST ALT Alkaline Phosphatase Troponin I High Sens B-Natriuretic Peptide Total Protein Albumin Lipase Urine Color Urine Appearance Urine pH Ur Specific [place] Urine Protein Urine Glucose (UA) Urine Ketones Urine Blood Urine Nitrite Ur Leukocyte Esterase Urine RBC Urine WBC Ur Squamous Epith Cells Amorphous Sediment Urine Bacteria Hyaline Casts Granular Casts Waxy Casts Stool Occult Blood COVID-19 (JONATHON) COVID-19 Clin Com 03/29/20 03/30/20 03/30/20 20:12 06:29 06:29 WBC 9.4 RBC 3.67 L Hgb 11.8 L Hct 34.0 L MCV 92.6 MCH 32.2 MCHC 34.7 RDW 12.0 Plt Count 397 MPV 10.8 Immature Gran % (Auto) 0.2 Neut % (Auto) 69.2 Lymph % (Auto) 14.7 L [place] % (Auto) 10.5 Eos % (Auto) 5.0 H Baso % (Auto) 0.4 Lymph # (Auto) 1.4 [place] # (Auto) 1.0 Eos # (Auto) 0.5 H Baso # (Auto) 0.0 Abs Immat Gran (auto) 0.02 Absolute Neuts (auto) 6.5 Absolute Nucleated RBC 0.000 Nucleated RBC % (auto) 0.0 PT INR APTT Sodium 138 Potassium 3.8 Chloride 103 Carbon Dioxide 28 Anion Gap 11 L BUN 28 H Creatinine 2.35 H Estim Creat Clear Calc 24.7 Estimated GFR 27 POC Glucose 174 H Random Glucose 120 H Fasting Glucose Lactic Acid Calcium 7.7 L D Magnesium Total Bilirubin AST ALT Alkaline Phosphatase Troponin I High Sens B-Natriuretic Peptide Total Protein Albumin Lipase Urine Color Urine Appearance Urine pH Ur Specific [place] Urine Protein Urine Glucose (UA) Urine Ketones Urine Blood Urine Nitrite Ur Leukocyte Esterase Urine RBC Urine WBC Ur Squamous Epith Cells Amorphous Sediment Urine Bacteria Hyaline Casts Granular Casts Waxy Casts Stool Occult Blood COVID-19 (JONATHON) COVID-19 Clin Com 03/30/20 03/30/20 03/30/20 07:52 11:34 15:58 WBC RBC Hgb Hct MCV MCH MCHC RDW Plt Count MPV Immature Gran % (Auto) Neut % (Auto) Lymph % (Auto) [place] % (Auto) Eos % (Auto) Baso % (Auto) Lymph # (Auto) [place] # (Auto) Eos # (Auto) Baso # (Auto) Abs Immat Gran (auto) Absolute Neuts (auto) Absolute Nucleated RBC Nucleated RBC % (auto) PT INR APTT Sodium Potassium Chloride Carbon Dioxide Anion Gap BUN Creatinine Estim Creat Clear Calc Estimated GFR POC Glucose 183 H 151 H 169 H Random Glucose Fasting Glucose Lactic Acid Calcium Magnesium Total Bilirubin AST ALT Alkaline Phosphatase Troponin I High Sens B-Natriuretic Peptide Total Protein Albumin Lipase Urine Color Urine Appearance Urine pH Ur Specific [place] Urine Protein Urine Glucose (UA) Urine Ketones Urine Blood Urine Nitrite Ur Leukocyte Esterase Urine RBC Urine WBC Ur Squamous Epith Cells Amorphous Sediment Urine Bacteria Hyaline Casts Granular Casts Waxy Casts Stool Occult Blood COVID-19 (JONATHON) COVID-19 [employer] Com 03/30/20 03/31/20 03/31/20 19:58 05:29 05:29 WBC 7.6 RBC 3.50 L Hgb 11.5 L Hct 32.4 L MCV 92.6 MCH 32.9 MCHC 35.5 RDW 12.3 Plt Count 398 MPV 10.9 Immature Gran % (Auto) 0.3 Neut % (Auto) 64.9 Lymph % (Auto) 16.4 L [place] % (Auto) 11.1 H Eos % (Auto) 7.0 H Baso % (Auto) 0.3 Lymph # (Auto) 1.2 [place] # (Auto) 0.8 Eos # (Auto) 0.5 H Baso # (Auto) 0.0 Abs Immat Gran (auto) 0.02 Absolute Neuts (auto) 4.9 Absolute Nucleated RBC 0.000 Nucleated RBC % (auto) 0.0 PT INR APTT Sodium 140 Potassium 3.3 Chloride 103 Carbon Dioxide 28 Anion Gap 12 BUN 30 H Creatinine 2.98 H Estim Creat Clear Calc 19.5 Estimated GFR 20 POC Glucose 184 H Random Glucose Fasting Glucose 113 H Lactic Acid Calcium 7.6 L Magnesium 2.1 Total Bilirubin AST ALT Alkaline Phosphatase Troponin I High Sens B-Natriuretic Peptide Total Protein Albumin Lipase Urine Color Urine Appearance Urine pH Ur Specific [place] Urine Protein Urine Glucose (UA) Urine Ketones Urine Blood Urine Nitrite Ur Leukocyte Esterase Urine RBC Urine WBC Ur Squamous Epith Cells Amorphous Sediment Urine Bacteria Hyaline Casts Granular Casts Waxy Casts Stool Occult Blood COVID-19 (JONATHON) COVID-19 Clin Com 03/31/20 03/31/20 03/31/20 07:04 10:59 15:59 WBC RBC Hgb Hct MCV MCH MCHC RDW Plt Count MPV Immature Gran % (Auto) Neut % (Auto) Lymph % (Auto) [place] % (Auto) Eos % (Auto) Baso % (Auto) Lymph # (Auto) [place] # (Auto) Eos # (Auto) Baso # (Auto) Abs Immat Gran (auto) Absolute Neuts (auto) Absolute Nucleated RBC Nucleated RBC % (auto) PT INR APTT Sodium Potassium Chloride Carbon Dioxide Anion Gap BUN Creatinine Estim Creat Clear Calc Estimated GFR POC Glucose 109 142 H 135 H Random Glucose Fasting Glucose Lactic Acid Calcium Magnesium Total Bilirubin AST ALT Alkaline Phosphatase Troponin I High Sens B-Natriuretic Peptide Total Protein Albumin Lipase Urine Color Urine Appearance Urine pH Ur Specific [place] Urine Protein Urine Glucose (UA) Urine Ketones Urine Blood Urine Nitrite Ur Leukocyte Esterase Urine RBC Urine WBC Ur Squamous Epith Cells Amorphous Sediment Urine Bacteria Hyaline Casts Granular Casts Waxy Casts Stool Occult Blood COVID-19 (JONATHON) COVID-19 Clin [facility] 03/31/20 04/01/20 04/01/20 19:22 05:36 05:36 WBC 7.7 RBC 3.79 L Hgb 12.4 L Hct 34.3 L MCV 90.5 MCH 32.7 MCHC 36.2 H RDW 11.9 Plt Count 449 H MPV 10.9 Immature Gran % (Auto) 0.3 Neut % (Auto) 65.5 Lymph % (Auto) 17.3 L [place] % (Auto) 10.6 Eos % (Auto) 5.9 H Baso % (Auto) 0.4 Lymph # (Auto) 1.3 [place] # (Auto) 0.8 Eos # (Auto) 0.5 H Baso # (Auto) 0.0 Abs Immat Gran (auto) 0.02 Absolute Neuts (auto) 5.0 Absolute Nucleated RBC 0.000 Nucleated RBC % (auto) 0.0 PT INR APTT Sodium 139 Potassium 3.0 L Chloride 103 Carbon Dioxide 26 Anion Gap 13 BUN 26 H Creatinine 2.87 H Estim Creat Clear Calc 20.2 Estimated GFR 21 POC Glucose 177 H Random Glucose Fasting Glucose 101 H Lactic Acid Calcium 7.5 L Magnesium Total Bilirubin AST ALT Alkaline Phosphatase Troponin I High Sens B-Natriuretic Peptide Total Protein Albumin Lipase Urine Color Urine Appearance Urine pH Ur Specific [place] Urine Protein Urine Glucose (UA) Urine Ketones Urine Blood Urine Nitrite Ur Leukocyte Esterase Urine RBC Urine WBC Ur Squamous Epith Cells Amorphous Sediment Urine Bacteria Hyaline Casts Granular Casts Waxy Casts Stool Occult Blood COVID-19 (JONATHON) COVID-19 [employer] 04/01/20 07:12 WBC RBC Hgb Hct MCV MCH MCHC RDW Plt Count MPV Immature Gran % (Auto) Neut % (Auto) Lymph % (Auto) [place] % (Auto) Eos % (Auto) Baso % (Auto) Lymph # (Auto) [place] # (Auto) Eos # (Auto) Baso # (Auto) Abs Immat Gran (auto) Absolute Neuts (auto) Absolute Nucleated RBC Nucleated RBC % (auto) PT INR APTT Sodium Potassium Chloride Carbon Dioxide Anion Gap BUN Creatinine Estim Creat Clear Calc Estimated GFR POC Glucose 104 Random Glucose Fasting Glucose Lactic Acid Calcium Magnesium Total Bilirubin AST ALT Alkaline Phosphatase Troponin I High Sens B-Natriuretic Peptide Total Protein Albumin Lipase Urine Color Urine Appearance Urine pH Ur Specific [place] Urine Protein Urine Glucose (UA) Urine Ketones Urine Blood Urine Nitrite Ur Leukocyte Esterase Urine RBC Urine WBC Ur Squamous Epith Cells Amorphous Sediment Urine Bacteria Hyaline Casts Granular Casts Waxy Casts Stool Occult Blood COVID-19 (JONATHON) COVID-19 [employer] Com Preliminary micro results at discharge 03/28/20 22:34 Blood Culture - Preliminary Blood - Venous No growth after 48 hours. 03/28/20 22:33 Blood Culture - Preliminary Blood - Venous No growth after 48 hours. Discharge Plan Discharge Patient Disposition: Home, Self-Care Referrals: Leta Davies, [employer] [Nurse Practitioner] - Konstantin Robles MD [Physician] - Elsa Noonan MD [Physician] - Yoandy Lund MD [Primary Care Provider] - Discharge Medications: New hydralazine 25 mg Tablet 50 mg PO BID Qty: 120 RF: 0 nifedipine 90 mg tablet extended release 90 mg PO DAILY Qty: 30 RF: 0 Continued carvedilol 3.125 mg tablet 3.125 mg PO BID 90 Days Qty: 180 RF: 1 torsemide 20 mg tablet 40 mg PO DAILY 90 Days Qty: 180 RF: 1 bisacodyl [Dulcolax (bisacodyl)] 5 mg tablet,delayed release (DR/EC) 10 mg PO ONCE 1 Days Qty: 2 RF: 0 polyethylene glycol 3350 [Miralax] 17 gram/dose powder 238 g PO ONCE 1 Days Qty: 238 RF: 0 isosorbide mononitrate 120 mg tablet extended release 24 hr 120 mg PO DAILY 90 Days Qty: 90 RF: 1 atorvastatin 80 mg tablet 80 mg PO DAILY Qty: 90 RF: 2 metronidazole [Flagyl] 500 mg tablet 500 mg PO BID 7 Days Qty: 14 RF: 0 levofloxacin 750 mg tablet 750 mg PO DAILY Qty: 7 RF: 0 metronidazole [Flagyl] 500 mg tablet 500 mg PO BID 10 Days Qty: 20 RF: 0 clopidogrel 75 mg tablet 75 mg PO DAILY RF: 0 glucose 4 gram tablet,chewable 800f16 g PO PRN (Reason: Hypoglycemia) RF: 0 (DME) blood sugar diagnostic Strip See Rx Instructions ea Not Applicable .MEDSUPPLY Qty: 10 RF: 0 cholecalciferol (vitamin D3) 50 mcg (2,000 unit) capsule 50 mcg PO DAILY RF: 0 umeclidinium 62.5 mcg/actuation blister with device 1 inh inhalation DAILY RF: 0 fluticasone propion-salmeterol 250-50 mcg/dose blister with device 1 ea PO Q12H RF: 0 apixaban 2.5 mg tablet 2.5 mg PO BID RF: 0 (DME) pen needle, diabetic 32 gauge x 5/32 needle See Rx Instructions ea subcut QID Qty: 50 RF: 0 alcohol swabs Pads, Medicated 0 pad topical CONT RF: 0 dextrose 40 % gel PO PRN (Reason: Hypoglycemia) RF: 0 albuterol sulfate 90 mcg/actuation HFA aerosol inhaler 0 mcg inhalation Q4-6H PRN (Reason: Shortness Of Breath) RF: 0 (DME) lancets 33 gauge misc See Rx Instructions ea .ROUTE .MEDSUPPLY Qty: 100 RF: 0 insulin aspart U-100 100 unit/mL (3 mL) insulin pen 8 unit subcut BID RF: 0 insulin glargine 100 unit/mL (3 mL) insulin pen 20 unit subcut BEDTIME RF: 0 famotidine 40 mg tablet 40 mg PO DAILY RF: 0 Held lisinopril 10 mg tablet 10 mg PO DAILY Qty: 90 RF: 1 Hold Instructions: Resume on 04/06/20. Discontinued levofloxacin 750 mg tablet 750 mg PO DAILY 7 Days Qty: 7 RF: 0 nifedipine 60 mg tablet extended release 60 mg PO DAILY Qty: 60 RF: 3 Discharge Orders: Discharge Order (Routine); Ordered 04/02/20 Ordered By: Isaac Quevedo Activity on Discharge: As tolerated Stand Alone Forms: Patient Portal Discharge page Visit Report Forms: Patient Portal Discharge page Care Plan Goals: recovery Health Concerns: colitis, htn, heidi Plan of Treatment: hold lisinopril for a week, follow up nephro, gi, cardio, increase nifedipine to 90mg daily, started hydralazine 50mg bid, finish antibiotic course
[2020-04-01 11:20] LABS: Glucose, Whole Blood 121 mg/dL (60-115)
--- NOTE | 2020-04-01 11:30 | PM.PNNEP ---
Subjective Subjective Date of Service: 04/01/20 Principal diagnosis: Hypertension, ischemic cardiomyopathy, coronary artery disease. Interval history: Feeling better. No new issues Physical Exam Vital Signs: Vital Signs: Last Vital Signs Temp 96.8 F 04/01/20 11:02 Pulse 52 04/01/20 11:02 Resp 20 04/01/20 11:02 BP 180/77 H 04/01/20 11:02 Pulse Ox 93 04/01/20 11:02 Body Mass Index 29.1 Const: General: comfortable Orientation/consciousness: patient oriented x3 Neck: Neck: Yes supple Resp: Auscultation: diminished lung sounds Cardio: Jugular venous distension: no JVD GI: Palpation (GI): Soft to palpation Neuro: General: patient oriented x3 and moves all extremities Objective Data Labs CBC & Chem 7: 04/01/20 05:36 04/01/20 05:36 Labs: Laboratory Results - last 24 hr 03/31/20 03/31/20 04/01/20 15:59 19:22 05:36 WBC 7.7 RBC 3.79 L Hgb 12.4 L Hct 34.3 L MCV 90.5 MCH 32.7 MCHC 36.2 H RDW 11.9 Plt Count 449 H MPV 10.9 Immature Gran % (Auto) 0.3 Neut % (Auto) 65.5 Lymph % (Auto) 17.3 L [place] % (Auto) 10.6 Eos % (Auto) 5.9 H Baso % (Auto) 0.4 Lymph # (Auto) 1.3 [place] # (Auto) 0.8 Eos # (Auto) 0.5 H Baso # (Auto) 0.0 Abs Immat Gran (auto) 0.02 Absolute Neuts (auto) 5.0 Absolute Nucleated RBC 0.000 Nucleated RBC % (auto) 0.0 Sodium Potassium Chloride Carbon Dioxide Anion Gap BUN Creatinine Estim Creat Clear Calc Estimated GFR POC Glucose 135 H 177 H Fasting Glucose Calcium 04/01/20 04/01/20 04/01/20 05:36 07:12 11:02 WBC RBC Hgb Hct MCV MCH MCHC RDW Plt Count MPV Immature Gran % (Auto) Neut % (Auto) Lymph % (Auto) [place] % (Auto) Eos % (Auto) Baso % (Auto) Lymph # (Auto) [place] # (Auto) Eos # (Auto) Baso # (Auto) Abs Immat Gran (auto) Absolute Neuts (auto) Absolute Nucleated RBC Nucleated RBC % (auto) Sodium 139 Potassium 3.0 L Chloride 103 Carbon Dioxide 26 Anion Gap 13 BUN 26 H Creatinine 2.87 H Estim Creat Clear Calc 20.2 Estimated GFR 21 POC Glucose 104 121 H Fasting Glucose 101 H Calcium 7.5 L Microbiology Microbiology Results: Microbiology 03/28/20 22:34 Blood - Venous Blood Culture - Preliminary No growth after 48 hours. 03/28/20 22:33 Blood - Venous Blood Culture - Preliminary No growth after 48 hours. Assessment & Plan Assessment and plan (1) HEIDI (acute kidney injury): Problem details: Acute Kidney Injury due to tubular injury (improving) HTN CKD 4 He has been on ACEI and had huge lability of BP. DDx- AIN from medications given for colitis ( unlikely) ACEI has been on hold. BP control better. Serum creatinine better Continue current supportive care for now Could be D/Ronal from a renal perspective Shall arrange close follow up in my office when D/Ronal Status: Acute Time Spent With Patient Time: Total time spent is greater than 50% in coordination of care (as documented) at patient's floor/unit and/or counseling patient:
--- NOTE | 2020-04-01 13:53 | P.PNIM_ITS ---
Subjective Subjective Date of Service: 04/01/20 Interval History: now complaining of some pain Cardiovascular Cardiovascular: Reports no additional cardiovascular complaints Genitourinary Genitourinary: Reports no additional male genitourinary complaints Physical Exam Vital Signs: Vital Signs: Last Vital Signs Temp 96.8 F 04/01/20 11:02 Pulse 52 04/01/20 11:02 Resp 20 04/01/20 11:02 BP 180/77 H 04/01/20 11:02 Pulse Ox 93 04/01/20 11:02 Body Mass Index 29.1 General: AO X 3, no acute distress Resp: CTA bilateral CVS: S1,S2,RRR GI: soft, non tender, non distended Neuro: motor grossly intact Psych: appropriate affect Objective Data Current Medications Generic Name Dose Route Start Last Admin Trade Name Freq PRN Reason Stop Dose Admin Albuterol Sulfate 2 puff 03/29/20 09:06 Albuterol Sulfate 90 Mcg 8 Gm Inhaler INHALE Q4H PRN Shortness Of Breath Apixaban 2.5 mg 03/29/20 09:00 04/01/20 07:59 Apixaban 2.5 Mg Tablet PO 2.5 mg BID BOB Administration Atorvastatin Calcium 80 mg 03/29/20 09:00 04/01/20 08:01 Atorvastatin Calcium 80 Mg Tablet PO 80 mg DAILY BOB Administration Carvedilol 3.125 mg 03/29/20 09:15 04/01/20 07:59 Carvedilol 3.125 Mg Tablet PO 3.125 mg BID BOB Administration Protocol Clopidogrel Bisulfate 75 mg 03/29/20 09:00 04/01/20 08:01 Clopidogrel Bisulfate 75 Mg Tablet PO 75 mg DAILY BOB Administration Famotidine 40 mg 03/29/20 09:00 04/01/20 08:01 Famotidine 20 Mg Tablet PO 40 mg DAILY BOB Administration Fluticasone/Vilanterol 1 puff 03/29/20 08:00 04/01/20 07:43 Fluticasone/Vilanterol 200/25 Blst.W.Dev INHALE 1 puff RDAILY BOB Administration Hydralazine HCl 50 mg 03/31/20 21:00 04/01/20 08:01 Hydralazine Hcl 25 Mg Tablet PO 50 mg BID BOB Administration Protocol Piperacillin Sod/Tazobactam 50 mls @ 100 mls/hr 03/30/20 04:00 04/01/20 13:29 Sod 2.25 gm/ Sodium Chloride IV Infused Q6H BOB Infusion Insulin Glargine 20 unit 03/29/20 21:00 03/31/20 20:35 Insulin Glargine,Hum.Rec.Anlog 100 Unit/Ml 10 Ml Vial SUBCUT 20 unit BEDTIME BOB Administration Insulin Human Lispro 8 unit 03/29/20 16:30 04/01/20 08:02 Insulin Lispro 100 Unit/Ml 3 Ml Vial SUBCUT Not Given BIDAC [facility] Isosorbide Mononitrate 120 mg 03/29/20 09:00 04/01/20 08:00 Isosorbide Mononitrate 60 Mg Tab.Er.24h PO 120 mg DAILY BOB Administration Protocol Nifedipine 90 mg 03/29/20 09:00 04/01/20 08:03 Nifedipine Er 30 Mg Tab.Er.24 PO 90 mg DAILY BOB Administration Non-Formulary Medication 1 inhalation 03/29/20 09:15 Umeclidinium INHALE DAILY [facility] Sodium Chloride 3 ml 03/29/20 08:00 04/01/20 08:02 0.9 % Sodium Chloride Flush 3 Ml Syringe IVFLUSH 3 ml QSHIFT [facility] Administration Torsemide 40 mg 03/29/20 09:00 04/01/20 08:01 Torsemide 20 Mg Tablet PO 40 mg DAILY BOB Administration Protocol Vitamin D 50 mcg 03/29/20 09:00 04/01/20 08:00 Cholecalciferol (Vitamin D3) 25 Mcg Tablet PO 50 mcg DAILY BOB Administration Labs CBC & Chem 7: 04/01/20 05:36 04/01/20 05:36 Microbiology Microbiology Results: Microbiology 03/28/20 22:34 Blood - Venous Blood Culture - Preliminary No growth after 48 hours. 03/28/20 22:33 Blood - Venous Blood Culture - Preliminary No growth after 48 hours. Assessment and Plan (1) HEIDI (acute kidney injury): Problem details: Acute Kidney Injury due to tubular injury (improving) HTN CKD 4 He has been on ACEI and had huge lability of BP. DDx- AIN from medications given for colitis ( unlikely) ACEI has been on hold. BP control better. Serum creatinine better Continue current supportive care for now Could be D/Ronal from a renal perspective Shall arrange close follow up in my office when D/Ronal Status: Acute Assessment and Plan: 85-year-old male presented with abdominal pain Colitis IV Zosyn initially improved, was tolerating diet, was planning to go home, but now reporting pain with eating, will continue to monitor inpatient Hypertensive urgency Continue Imdur, nifedipine (increased to 90 mg daily), Coreg (cannot increase due to bradycardia), started on hydralazine 25 mg b.i.d. - increased to 50mg bid Chronic systolic CHF - ischemic Low-dose carvedilol Continue JEN-inhibitor Torsemide plavix, eliquis, lipitor AFib Continue Eliquis, Coreg HEIDI on CKD IV nephro appreciatied no hydro on US creatinine slightly lower today
[2020-04-01 15:18] VITALS: BP 165/59; PULSE 54; RESP 20; TEMP 36.7; O2SAT 96
[2020-04-01] MEDS: Insulin Lispro 100 UNIT/ML 3 ML VIAL 8 UNIT SUBCUT (15:47)
[2020-04-01 19:26] VITALS: BP 175/65; PULSE 56; RESP 19; TEMP 36.3; O2SAT 98
[2020-04-01 20:32] LABS: Glucose, Whole Blood 92 mg/dL (60-115)
[2020-04-01] MEDS: Insulin Glargine,Hum.rec.anlog 100 UNIT/ML 10 ML VIAL 20 UNIT SUBCUT (20:39)
[2020-04-01 23:09] VITALS: BP 169/72; PULSE 69; RESP 20; TEMP 36.4; O2SAT 95
[2020-04-02 03:16] VITALS: BP 172/84; PULSE 47; RESP 17; TEMP 36.2; O2SAT 93
[2020-04-02] MEDS: Piperacillin Sodium/Tazobactam 2.25 GM in 0.9 % Sodium Chloride 50 ML IV ×2 (05:22→09:15)
[2020-04-02 07:03] LABS: MANUAL DIFF FLAG NO
[2020-04-02 07:14] LABS: Basophils Percent Auto 0.3 % (0-2); Eosinophils Absolute Auto 0.4 X10*3/uL (0.0-0.4); Eosinophils Percent Auto 5.3 % (0-4); Hematocrit 34.7 % (42-52); Hemoglobin 12.3 g/dl (14.0-18.0); Imm Gran Abs Auto 0.02 X10*3/uL (0.00-0.03); Imm Gran Pct Auto 0.3 % (0.0-0.4); Lymphocytes Absolute Auto 1.5 X10*3/uL (1.2-4.9); Lymphocytes Percent Auto 20.4 % (20-40); Mean Corpuscular HGB Conc 35.4 g/dl (31.0-36.0); Mean Corpuscular Hemoglobin 32.3 pg (27.0-33.0); Mean Corpuscular Volume 91.1 fL (80-98); Mean Platelet Volume 10.7 fL (9.4-12.4); Monocytes Absolute Auto 0.8 X10*3/uL (0.1-1.2); Neutrophils Absolute Auto 4.6 X10*3/uL (2.0-8.3); Neutrophils Percent Auto 62.7 % (45-73); Platelet Count 448 X10*3/uL (160-400); Red Blood Count 3.81 X10*6/uL (4.60-5.80); Red Cell Distribution Width 12.2 % (11.0-16.0); White Blood Count 7.3 X10*3/uL (4.8-10.8)
[2020-04-02 07:34] LABS: Anion Gap 12 (12-20); Blood Urea Nitrogen 22 mg/dL (9-16); Calcium 7.5 mg/dL (8.4-10.2); Carbon Dioxide 25 mmol/L (22-29); Chloride 107 mmol/L (96-108); Creatinine Clr Calc Pharmacy 21.4; Estimated Glomerular Filt Rate 23; Glucose Fasting 69 mg/dL (60-99); Sodium 141 mmol/L (135-145)
[2020-04-02 07:35] LABS: Glucose, Whole Blood 74 mg/dL (60-115)
[2020-04-02] MEDS: Fluticasone/Vilanterol 200/25 BLST.W.DEV 1 PUFF INHALE (07:39)
[2020-04-02 07:43] VITALS: BP 174/88; PULSE 40; RESP 18; TEMP 36.8; O2SAT 96
[2020-04-02 08:27] LABS: CDIFF Ag Negative (Negative); CDIFF Internal ctrl Dots and bkg OK (V); CDiff Toxin Negative (Negative)
[2020-04-02] MEDS: 0.9 % Sodium Chloride Flush 3 ML SYRINGE IVFLUSH (08:54)
[2020-04-02] MEDS: carvediloL 3.125 MG TABLET PO (08:54)
[2020-04-02] MEDS: hydrALAZINE HCl 25 MG TABLET 50 MG PO (08:55)
[2020-04-02] MEDS: Clopidogrel Bisulfate 75 MG TABLET PO (08:55)
[2020-04-02] MEDS: Isosorbide Mononitrate 60 MG TAB.ER.24H 120 MG PO (08:55)
[2020-04-02] MEDS: NIFEdipine ER 30 MG TAB.ER.24 90 MG PO (08:55)
[2020-04-02] MEDS: Cholecalciferol (Vitamin D3) 25 MCG TABLET 50 MCG PO (08:55)
[2020-04-02] MEDS: Apixaban 2.5 MG TABLET PO (08:55)
[2020-04-02] MEDS: Atorvastatin Calcium 80 MG TABLET PO (08:55)
[2020-04-02] MEDS: Famotidine 20 MG TABLET 40 MG PO (08:55)
[2020-04-02] MEDS: Torsemide 20 MG TABLET 40 MG PO (09:15)
--- NOTE | 2020-04-02 09:46 | MHC.CM.PN ---
DC to home today with family assistance. No home services required or ordered. Family is providing transportation.
[2020-04-02 11:05] VITALS: BP 169/71; PULSE 37; RESP 18; TEMP 35.9; O2SAT 96
[2020-04-02 11:25] LABS: Glucose, Whole Blood 123 mg/dL (60-115)
== END 2020-04-02 13:30 | disposition home or self-care (01) | DRG 304 ==
LOC: HO.ED 03-29 05:02 → HO.EDOVER 03-29 06:25 → HO.IMC 03-30 06:34
PROVIDERS: Internal Medicine; Admitting Provider Internal Medicine; Emergency Provider Student in an Organized Health Care Education/Training Program; PCP Internal Medicine; Visit Provider Internal Medicine
DX: I16.0 Hypertensive urgency (principal); N17.0 Acute kidney failure with tubular necrosis; I48.19 Other persistent atrial fibrillation; I50.22 Chronic systolic (congestive) heart failure; N18.5 Chronic kidney disease, stage 5; K52.9 Noninfective gastroenteritis and colitis, unspecified; I13.2 Hypertensive heart and chronic kidney disease with heart failure and with stage 5 chronic kidney disease, or end stage renal disease; I25.2 Old myocardial infarction; E78.5 Hyperlipidemia, unspecified; I25.5 Ischemic cardiomyopathy; G47.33 Obstructive sleep apnea (adult) (pediatric); E11.22 Type 2 diabetes mellitus with diabetic chronic kidney disease; I25.10 Atherosclerotic heart disease of native coronary artery without angina pectoris; R33.9 Retention of urine, unspecified; Z20.822 Contact with and (suspected) exposure to COVID-19; Z79.4 Long term (current) use of insulin; Z79.01 Long term (current) use of anticoagulants; Z79.02 Long term (current) use of antithrombotics/antiplatelets; Z79.51 Long term (current) use of inhaled steroids; Z79.899 Other long term (current) drug therapy
CPT/HCPCS: 36415; 51798; 71250; 74176; 76775; 80048; 80053; 81001; 82272; 82947; 83605; 83690; 83735; 83880; 84484; 85025; 85610; 85730; 87040; 87324; 87449; 87635; 93005; 96374; 96375; 96376; 99284; 99285; J1170; J2405; J2543; J3010